=== PATIENT | male | born 1945 | race Caucasian/White ===

== ENCOUNTER 2019-01-24 09:13 | Emergency (ER) | payer MEDICARE, OTHER, SELFPAY ==
[2019-01-24 09:34] VITALS: BP 118/66; PULSE 93; RESP 20; TEMP 36.7; O2SAT 99
[2019-01-24 10:00] VITALS: BP 112/71; PULSE 90; RESP 16; O2SAT 94
--- NOTE | 2019-01-24 10:50 | ED.NEUROSD ---
HPI - Neuro Symptoms/Deficit General Chief Complaint: Neuro Symptoms/Deficit Stated Complaint: HALLUCINATIONS Time Seen by Provider: 01/24/19 10:41 Source: patient and family (, 9 months) Mode of arrival: ambulatory Limitations: no limitations History of Present Illness HPI Narrative: this is a 73-year-old male comes to the emergency department. He is brought by his for constantly falling asleep and in appropriate locations are at times. As well as confusion. states that he will fall asleep intermittently on a regular basis. She states he has even fallen asleep while trying eat. He has done things like to try to eat PCU with a knife, she told him that there were shrubs that someone had stolen from their front porch but then went to try to find tall it moves from which she pointed out that they should be going to someone had stolen them he still said he had to move the zeus. She states he noticed 1 day that he kept trying to replace his CPAP tubing on his face some and kept taking on putting it off taking on putting it off multiple times and she did notice that the nasal cannula was gone and had to inform him that it would not work and he did not seem to understand. He has probably had about 3 or 4 episodes like this. Along with intermittently falling asleep. She states he does have diabetes, he has not been checking his sugars regularly but just using his Lantus once daily. He also left his CPAP in [place] about 3 weeks ago although he was having some symptoms before then as well. They do seem a little bit worse since then. Denies any headaches, vision changes, no chest pain or shortness of breath, no abdominal pain. No nausea, no vomiting, no other diarrhea, constipation or urinary issues. No weakness, numbness or difficulty with movement. He does not have any aphasia according to him and his . They have only been very 9 months. History significant for a CABG, cholecystectomy, AFib and diabetes. Related Data Home Medications Medication Instructions Recorded Confirmed Metformin Hydrochloride 1,275 mg PO BID #0 11/06/12 (GLUCOPHAGE) VITAMIN D (Vitamin D3) #0 11/06/12 aspirin 81 mg PO QDAY #0 11/06/12 clopidogrel [Plavix] 75 mg PO QDAY #0 11/06/12 hydrochlorothiazide 50 mg PO QDAY #0 11/06/12 insulin glargine [Lantus U-100 0 unit SQ BID #0 11/06/12 Insulin] lisinopril 20 mg PO QDAY #0 11/06/12 metoprolol tartrate 25 mg PO BID #0 11/06/12 omeprazole #0 11/06/12 simvastatin 20 mg PO QDAY #0 11/06/12 testosterone cypionate #0 11/06/12 [Depo-Testosterone] Allergies Allergy/AdvReac Type Severity Reaction Status Date / Time ferrous sulfate Allergy Muscle Pain Verified 01/24/19 09:41 gabapentin Allergy Confusion Verified 01/24/19 09:41 zolpidem [From Ambien] Allergy Confusion Verified 01/24/19 09:41 NSAIDS (Non-Steroidal AdvReac Severe kidney Verified 01/24/19 09:42 Anti-Inflamma disease Review of Systems Review of Systems ROS Unobtainable: All systems reviewed & are unremarkable except as noted in HPI and below Constitutional Denies body ache(s), Denies chills, Reports daytime sleepiness, Denies fatigue, Denies fever(s), Denies frequent falls, Denies headache(s), Denies lethargy and Denies weakness ENT Ears, Nose, Mouth, and Throat: Denies vertigo, Denies headache(s), Denies nasal congestion and Denies disequilibrium Cardiovascular Denies chest pain, Denies syncope, Denies edema, Denies irregular heart rhythm, Denies lightheadedness, Denies radiating jaw, neck or arm pain, Denies palpitations, Denies dyspnea, Denies dyspnea on exertion and Denies orthopnea Respiratory Denies change in phlegm color, Denies chest congestion, Denies cough, Denies excessive phlegm production, Denies dyspnea, Denies dyspnea on exertion and Denies wheezing Gastrointestinal Gastrointestinal: Denies abdominal pain, Denies change in bowel habits, Denies fecal incontinence, Denies diarrhea, Denies nausea and Denies vomiting Genitourinary Denies hematuria, Denies flank pain, Denies urinary frequency, Denies urinary hesitancy, Denies urinary incontinence and Denies urinary urgency Musculoskeletal Denies abnormal gait, Denies back pain, Denies muscle weakness, Denies numbness and Denies tingling Integumentary/Breasts Denies rash Neurologic Reports as per HPI, Denies abnormal movements, Denies abnormal speech, Denies abnormal gait, Reports behavioral changes, Reports confusion, Denies vertigo, Denies syncope, Denies frequent falls, Denies headache(s), Denies lack of coordination, Denies focal weakness, Denies numbness, Denies convulsions, Denies seizure-like activity, Denies sensory deficit, Denies tingling, Denies paresthesias, Denies disequilibrium and Denies weakness Psychiatric Reports behavioral changes and Reports confusion Endocrine Denies fatigue and Denies palpitations Allergic/Immunologic Denies wheezing PFSH Medical History (Updated 01/24/19 @ 13:20 by Brandy Chandler DO) Atrial fibrillation (Chronic) Coronary artery disease (Chronic) Diabetes (Chronic) Dyslipidemia (Chronic) Hypertension (Chronic) Sleep apnea (Chronic) Surgical History (Updated 01/24/19 @ 11:17 by Brandy Chandler DO) Hx of cholecystectomy (Chronic) S/P CABG x 4 (Chronic) Social History (Updated 01/24/19 @ 11:17 by Brandy Chandler DO) marital status: details: x 9 months Smoking Status: Former smoker Social History (Updated 01/24/19 @ 11:17 by Brandy Chandler DO) marital status: details: x 9 months Smoking Status: Former smoker Exam Narrative Exam Narrative: GEN: Obese, well-appearing male, alert and oriented x 3, patient appears to be in no acute distress. patient does seem to be napping when I enter the room but stays awake. He will close his eyes but listens follows a conversation and answers appropriately. HEENT: Atraumatic, pupils are equal round reactive to light, extraocular movements are intact, nares are clear, TMs are clear with no fluid, there is no conjunctival pallor. Throat is clear without any exudates, erythema, tonsillar enlargement or uvular deviation, no facial droop HEART: Regular rate and rhythm without murmur, clicks, rubs. Pulses are equal in upper extremities LUNGS:Lungs clear to auscultation, no wheezes, rales, crackles, chest moves symmetrically ABD:bowel sounds normal, soft, non-tender, no guarding, rebound, rigidity, no masses noted, no hepatosplenomegaly :No CVA tenderness MSCL: Non-tender, no muscle atrophy, muscles strength 5/5 upper and lower extremities, full range of motion, normal gait NEURO:CN 2-12 intact, sensation normal, reflexes 2/4 upper and lower extremities. finger nose finger test normal, heel uribe test normal, romberg normal Initial Vital Signs Initial Vital Signs: Vital Signs Temperature 98.0 F 01/24/19 09:34 Pulse Rate 93 H 01/24/19 09:34 Respiratory Rate 20 01/24/19 09:34 Blood Pressure 118/66 01/24/19 09:34 Pulse Oximetry 99 01/24/19 09:34 Scores GCS Marcelo coma scale eye opening: Spontaneous Marcelo coma scale verbal response: Orientated Mark coma scale motor response: Obey commands Marcelo coma scale total score: 15 Course Orders Ordered: ED Orders 01/24/19 11:07 EKG-12 Lead Stat 01/24/19 11:08 CT head/brain wo con Stat XR chest 1V Stat 01/24/19 11:20 Ammonia (NH3) Stat Prolactin Stat 01/24/19 12:25 Urinalysis and Microscopic Stat Urine Drug Screen, Rapid Stat Vital Signs - 8 hr 01/24/19 12:22 01/24/19 13:30 01/24/19 14:08 Pulse Rate 85 83 63 Respiratory Rate 19 16 12 Blood Pressure 115/62 Blood Pressure [Right Arm] 124/60 112/69 Pulse Oximetry 99 99 98 MDM - Neuro Symptoms/Deficit Lab Data Attestation: I reviewed the patient's lab results. Result diagrams: 01/24/19 09:40 01/24/19 09:40 Lab Results 01/24/19 01/24/19 01/24/19 Range/Units 09:40 09:40 09:40 WBC 8.2 (4.5-11.0) X10^3/uL RBC 5.41 (4.5-5.9) X10^6/uL Hgb 14.8 (13.5-17.5) g/dL Hct 44.3 (41-53) % MCV 81.9 (80-100) fL MCH 27.3 (26-34) PG MCHC 33.4 (30-36) % RDW 14.9 H (11.6-14.8) % Plt Count 141 L (150-400) X10^3/uL Neut % (Auto) 78.0 H (50-75) % Lymph % (Auto) 14.5 L (25-40) % Barry % (Auto) 5.1 (3-14) % Eos % (Auto) 1.9 L (2-4) % Baso % (Auto) 0.5 (0-2) % Neut # (Auto) 6400 (3117-0850) /uL Lymph # (Auto) 1200 (8490-3570) /uL Barry # (Auto) 400 (0-900) /uL Eos # (Auto) 200 (0-450) /uL Baso # (Auto) 0 (0-100) /uL PT 23.3 H (10.1-12.7) SECONDS INR 2.0 H (0.9-1.3) APTT 52 H (26.4-36.2) SECONDS Sodium 135 L (137-145) mmol/L Potassium 5.0 (3.4-5.1) mmol/L Chloride 98 (98-107) mmol/L Carbon Dioxide 26 (22-32) mmol/L BUN 39 H (9-20) mg/dL Creatinine 1.60 H (0.66-1.25) mg/dL Estimated GFR 42.7 L (>60) mL/min BUN/Creatinine Ratio 24.4 H (6-22) Glucose 96 (80-110) mg/dL Calcium 8.5 (8.4-10.2) mg/dL Total Bilirubin 1.1 (0.2-1.3) mg/dL AST 42 (17-59) IU/L ALT 20 L (21-72) IU/L Alkaline Phosphatase 78 (38-126) U/L Ammonia (9-30) umol/L Total Protein 7.5 (6.3-8.2) g/dL Albumin 4.3 (3.5-5.0) g/dL Globulin 3.2 (1.7-4.1) g/dL Albumin/Globulin Ratio 1.3 (1.0-2.8) TSH (0.47-4.68) uIU/mL Prolactin (3.7-17.9) ng/mL Urine Color Urine Appearance Urine pH (4.5-8.0) Ur Specific [place] (1.000-1.035) Urine Protein (Negative) Urine Glucose (UA) (Negative) g/dL Urine Ketones (NEGATIVE) Urine Occult Blood (Negative) Urine Nitrate (Negative) Urine Bilirubin (NEGATIVE) Urine Urobilinogen (0.2) E.U./dL Ur Leukocyte Esterase (NEGATIVE) Urine RBC (0-5/HPF) Urine WBC (0-5/HPF) Urine Bacteria (None) Hyaline Casts (None) Ur Culture Indicated? Urine Opiates Screen (Negative) Ur Oxycodone Screen (Negative) Urine Methadone Screen (Negative) Ur Barbiturates Screen (Negative) U Tricyclic Antidepress (Negative) Ur Phencyclidine Scrn (Negative) Ur Amphetamines Screen (Negative) U Methamphetamines Scrn (Negative) Ur MDMA Scrn (Ecstasy) (Negative) U Benzodiazepines Scrn (Negative) Urine Cocaine Screen (Negative) U Marijuana (THC) Screen (Negative) Ethyl Alcohol < 10 mg/dL 01/24/19 01/24/19 01/24/19 Range/Units 09:40 11:20 11:20 WBC (4.5-11.0) X10^3/uL RBC (4.5-5.9) X10^6/uL Hgb (13.5-17.5) g/dL Hct (41-53) % MCV (80-100) fL MCH (26-34) PG MCHC (30-36) % RDW (11.6-14.8) % Plt Count (150-400) X10^3/uL Neut % (Auto) (50-75) % Lymph % (Auto) (25-40) % Barry % (Auto) (3-14) % Eos % (Auto) (2-4) % Baso % (Auto) (0-2) % Neut # (Auto) (4535-1470) /uL Lymph # (Auto) (2992-7096) /uL Barry # (Auto) (0-900) /uL Eos # (Auto) (0-450) /uL Baso # (Auto) (0-100) /uL PT (10.1-12.7) SECONDS INR (0.9-1.3) APTT (26.4-36.2) SECONDS Sodium (137-145) mmol/L Potassium (3.4-5.1) mmol/L Chloride (98-107) mmol/L Carbon Dioxide (22-32) mmol/L BUN (9-20) mg/dL Creatinine (0.66-1.25) mg/dL Estimated GFR (>60) mL/min BUN/Creatinine Ratio (6-22) Glucose (80-110) mg/dL Calcium (8.4-10.2) mg/dL Total Bilirubin (0.2-1.3) mg/dL AST (17-59) IU/L ALT (21-72) IU/L Alkaline Phosphatase (38-126) U/L Ammonia 10.0 (9-30) umol/L Total Protein (6.3-8.2) g/dL Albumin (3.5-5.0) g/dL Globulin (1.7-4.1) g/dL Albumin/Globulin Ratio (1.0-2.8) TSH 3.26 (0.47-4.68) uIU/mL Prolactin 9.8 (3.7-17.9) ng/mL Urine Color Urine Appearance Urine pH (4.5-8.0) Ur Specific [place] (1.000-1.035) Urine Protein (Negative) Urine Glucose (UA) (Negative) g/dL Urine Ketones (NEGATIVE) Urine Occult Blood (Negative) Urine Nitrate (Negative) Urine Bilirubin (NEGATIVE) Urine Urobilinogen (0.2) E.U./dL Ur Leukocyte Esterase (NEGATIVE) Urine RBC (0-5/HPF) Urine WBC (0-5/HPF) Urine Bacteria (None) Hyaline Casts (None) Ur Culture Indicated? Urine Opiates Screen (Negative) Ur Oxycodone Screen (Negative) Urine Methadone Screen (Negative) Ur Barbiturates Screen (Negative) U Tricyclic Antidepress (Negative) Ur Phencyclidine Scrn (Negative) Ur Amphetamines Screen (Negative) U Methamphetamines Scrn (Negative) Ur MDMA Scrn (Ecstasy) (Negative) U Benzodiazepines Scrn (Negative) Urine Cocaine Screen (Negative) U Marijuana (THC) Screen (Negative) Ethyl Alcohol mg/dL 01/24/19 01/24/19 Range/Units 12:25 12:25 WBC (4.5-11.0) X10^3/uL RBC (4.5-5.9) X10^6/uL Hgb (13.5-17.5) g/dL Hct (41-53) % MCV (80-100) fL MCH (26-34) PG MCHC (30-36) % RDW (11.6-14.8) % Plt Count (150-400) X10^3/uL Neut % (Auto) (50-75) % Lymph % (Auto) (25-40) % Barry % (Auto) (3-14) % Eos % (Auto) (2-4) % Baso % (Auto) (0-2) % Neut # (Auto) (7035-2114) /uL Lymph # (Auto) (7597-5846) /uL Barry # (Auto) (0-900) /uL Eos # (Auto) (0-450) /uL Baso # (Auto) (0-100) /uL PT (10.1-12.7) SECONDS INR (0.9-1.3) APTT (26.4-36.2) SECONDS Sodium (137-145) mmol/L Potassium (3.4-5.1) mmol/L Chloride (98-107) mmol/L Carbon Dioxide (22-32) mmol/L BUN (9-20) mg/dL Creatinine (0.66-1.25) mg/dL Estimated GFR (>60) mL/min BUN/Creatinine Ratio (6-22) Glucose (80-110) mg/dL Calcium (8.4-10.2) mg/dL Total Bilirubin (0.2-1.3) mg/dL AST (17-59) IU/L ALT (21-72) IU/L Alkaline Phosphatase (38-126) U/L Ammonia (9-30) umol/L Total Protein (6.3-8.2) g/dL Albumin (3.5-5.0) g/dL Globulin (1.7-4.1) g/dL Albumin/Globulin Ratio (1.0-2.8) TSH (0.47-4.68) uIU/mL Prolactin (3.7-17.9) ng/mL Urine Color Yellow Urine Appearance Clear Urine pH 5.0 (4.5-8.0) Ur Specific [place] 1.025 (1.000-1.035) Urine Protein Trace H (Negative) Urine Glucose (UA) Negative (Negative) g/dL Urine Ketones Negative (NEGATIVE) Urine Occult Blood Negative (Negative) Urine Nitrate Negative (Negative) Urine Bilirubin Negative (NEGATIVE) Urine Urobilinogen 0.2 (0.2) E.U./dL Ur Leukocyte Esterase Negative (NEGATIVE) Urine RBC None seen (0-5/HPF) Urine WBC None seen (0-5/HPF) Urine Bacteria None seen (None) Hyaline Casts 1-5/lpf (None) Ur Culture Indicated? Cult not indicated Urine Opiates Screen Positive H (Negative) Ur Oxycodone Screen Positive H (Negative) Urine Methadone Screen Negative (Negative) Ur Barbiturates Screen Negative (Negative) U Tricyclic Antidepress Positive H (Negative) Ur Phencyclidine Scrn Negative (Negative) Ur Amphetamines Screen Negative (Negative) U Methamphetamines Scrn Negative (Negative) Ur MDMA Scrn (Ecstasy) Negative (Negative) U Benzodiazepines Scrn Negative (Negative) Urine Cocaine Screen Negative (Negative) U Marijuana (THC) Screen Negative (Negative) Ethyl Alcohol mg/dL Point of Care Testing Glucose POC [address] scan - head: Radiologist's impression: Chart Viewer Diagnostics DATE TYPE STATUS AUTHOR Yulisa 01/24/19 11:08 Escobar Cardona 01/24/19 11:08 Escobar Cardona De GuzmanKenneth luna, 1945 [facility], ED.LOC - Main ED: R02 Neuro Symptoms/Deficit Search Chart NF - Not included in interaction checking Muscle Pain Confusion Confusion kidney disease ONSET Today 14:08 Kenneth De Guzman 73 1945 [place] [address] CT Scan Report Signed Patient: Darío De Guzman#: [id number] : 1945cct:[id number] Age/Sex: 73 / MDate of Service: 01/24/19 Loc: ED Accession Number: [id number] Procedure: CT head/brain wo con Ordering Provider: Brandy Chandler D.O. PROCEDURE: CT HEAD/BRAIN WO CON INDICATIONS: falls asleep contantly, confusion intermittent TECHNIQUE: Noncontrast 4.5 mm thick angled axial sections acquired from the foramen magnum to the vertex, with coronal and sagittal reformats. For radiation dose reduction, the following was used: automated exposure control, adjustment of mA and/or kV according to patient size. COMPARISON: None. FINDINGS: Image quality: Excellent. CSF spaces: Basal cisterns are patent. No extra-axial fluid collections. The ventricles are symmetric in size and shape. Brain: No intracranial bleeds or masses. There is cerebral volume loss for age, with resultant ventricular and sulcal prominence. There are periventricular and deep white matter chronic small vessel ischemic changes. There is intracranial internal carotid artery atherosclerosis. Incidental note of coarse calcifications along the anterior falx cerebri compatible with calcified meningiomas. No mass effect. Skull and face: Calvarium and visualized facial bones appear intact, without suspicious lesions. Sinuses: Left maxillary sinus mucosal thickening. Remainder of the visualized paranasal sinuses and mastoids are clear. IMPRESSION: CT head without acute intracranial abnormalities. Age-related senescent changes and sequela of chronic small vessel ischemic disease. Dictated by: Escobar Cradona M.D. on 01/24/2019 at 11:49 Approved by: Escobar Cardona M.D. on 01/24/2019 at 11:51 Chest x-ray: Radiologist's impression: Chart Viewer Diagnostics DATE TYPE STATUS AUTHOR Yulisa 01/24/19 11:08 Escobar Cardona 01/24/19 11:08 Escobar Cardona Harry 73, 1945 [facility], ED.LOC - Main ED: R02 Neuro Symptoms/Deficit Search Chart NF - Not included in interaction checking Muscle Pain Confusion Confusion kidney disease ONSET Today 14:08 Kenneth De Guzman 1945 [place] [address] XRay Report Signed Patient: Darío De Guzman#: [id number] : 1945cct:[id number] Age/Sex: 73 / MDate of Service: 01/24/19 Loc: ED Accession Number: [id number] Procedure: XR chest 1V Ordering Provider: Brandy Chandler D.O. PROCEDURE: XR CHEST 1V INDICATIONS: falls asleep contantly, confusion intermittent TECHNIQUE: One view of the chest was acquired. COMPARISON: None. FINDINGS: Surgical changes and devices: Multiple median sternotomy wires and postoperative changes from prior CABG. Lungs and pleura: Lung volumes are diminished bilaterally with associated bibasilar atelectasis. Lungs are otherwise clear. No pleural effusions or pneumothorax. Mediastinum: Mediastinal contours appear normal. Heart size is normal. Bones and chest wall: No suspicious bony lesions. Overlying soft tissues appear unremarkable. IMPRESSION: Mild hypoventilatory changes. No acute airspace disease. Dictated by: Escobar Cardona M.D. on 01/24/2019 at 12:38 Approved by: Escobar Cardona M.D. on 01/24/2019 at 12:39 ECG Data Attestation: I personally reviewed and interpreted this ECG as follows: Prior ECG tracings: available for review Interpretation: Sinus rhythm occasional premature complex, rate of 86, P 182, QRS of 118 and QTC of 422. Nonspecific ST changes. From November 06, [address] depression in lateral leads as well as an RSR and 3 and AVF although it is a very small voltage and as for nose is today. MDM Narrative Medical decision making narrative: Patient does not have any clear source for his symptomatology. He has had his CPAP so this could be contributing although his CO2 is not elevated so it is unlikely to be hypercapnia. Patient was also having symptoms before with his CPAP at home. He does have narcotics on board we did discuss that as could be contributing to at least the sleepiness. His and him state that they do not think that is the cause as well as the tricyclics. He states he does take something regularly for sleep but is not clear what that is. He does not have any other clear acute changes that would be causing his mental status changes, his head CT is negative as well as chest x-ray for any acute cause he does have chronic changes. Ideally would probably benefit from follow-up with the primary care he could have an Alzheimer's, possibly Lewy body dementia that is causing some of the hallucinations and changes although this would necessarily cause his sleepiness. He is sugar was not particularly elevated today and he has lowest was 75 but he had not eaten. Was given the referral number to help set up with primary care but encouraged to return if worsening symptoms. Discharge Plan Departure Patient Disposition: Home Clinical Impression: Altered mental status Discharge Date/Time: 01/24/19 14:10 Interventions: ED Discharge Assessment Last Done: 01/24/19 14:08 Instructions: DI for Altered Mental Status Activity Restrictions/Additional Instructions: Your urine drug screen is positive for opiates and tricyclic's this can cause your altered mental status. I would also recommend that you get a hold of another CPAP get your CPAP and begin using this again. I recommend follow-up with primary care. You can call the hospital at [phone] and ask for the physician coordinator line to help you find a primary care physician. Follow-up in the next 3-5 days for recheck., return if your are having sudden new changes, passing out, new chest pain, shortness of breath, persistent vomiting, new weakness, numbness or inability to use your extremities. I do not recommend that you drive until cleared by a physician. I do not perform hazards had activities or make any major decisions. Prescriptions: No Action lisinopril 20 MG tablet 20 mg PO QDAY Qty: 0 RF: 0 Metformin Hydrochloride (GLUCOPHAGE) 1,275 mg PO BID Qty: 0 RF: 0 clopidogrel [Plavix] 75 MG tablet 75 mg PO QDAY Qty: 0 RF: 0 omeprazole 40 MG capsule,delayed release(DR/EC) Qty: 0 RF: 0 simvastatin 20 MG tablet 20 mg PO QDAY Qty: 0 RF: 0 aspirin 81 MG tablet,chewable 81 mg PO QDAY Qty: 0 RF: 0 metoprolol tartrate 25 MG tablet 25 mg PO BID Qty: 0 RF: 0 VITAMIN D (Vitamin D3) Qty: 0 RF: 0 insulin glargine [Lantus U-100 Insulin] 100 UNIT/1 ML solution SQ BID Qty: 0 RF: 0 hydrochlorothiazide 25 MG tablet 50 mg PO QDAY Qty: 0 RF: 0 testosterone cypionate [Depo-Testosterone] 200 MG/1 ML oil Qty: 0 RF: 0
[2019-01-24 11:00] VITALS: BP 129/65; PULSE 85; RESP 16; O2SAT 98
--- NOTE | 2019-01-24 11:08 | DI.CT.S_ITS ---
PROCEDURE: CT HEAD/BRAIN WO CON INDICATIONS: falls asleep contantly, confusion intermittent TECHNIQUE: Noncontrast 4.5 mm thick angled axial sections acquired from the foramen magnum to the vertex, with coronal and sagittal reformats. For radiation dose reduction, the following was used: automated exposure control, adjustment of mA and/or kV according to patient size. COMPARISON: None. FINDINGS: Image quality: Excellent. CSF spaces: Basal cisterns are patent. No extra-axial fluid collections. The ventricles are symmetric in size and shape. Brain: No intracranial bleeds or masses. There is cerebral volume loss for age, with resultant ventricular and sulcal prominence. There are periventricular and deep white matter chronic small vessel ischemic changes. There is intracranial internal carotid artery atherosclerosis. Incidental note of coarse calcifications along the anterior falx cerebri compatible with calcified meningiomas. No mass effect. Skull and face: Calvarium and visualized facial bones appear intact, without suspicious lesions. Sinuses: Left maxillary sinus mucosal thickening. Remainder of the visualized paranasal sinuses and mastoids are clear. IMPRESSION: CT head without acute intracranial abnormalities. Age-related senescent changes and sequela of chronic small vessel ischemic disease. Dictated by: Escobar Cardona M.D. on 01/24/2019 at 11:49 Approved by: Escobar Cardona M.D. on 01/24/2019 at 11:51
--- NOTE | 2019-01-24 11:08 | DI.RAD.S_ITS ---
PROCEDURE: XR CHEST 1V INDICATIONS: falls asleep contantly, confusion intermittent TECHNIQUE: One view of the chest was acquired. COMPARISON: None. FINDINGS: Surgical changes and devices: Multiple median sternotomy wires and postoperative changes from prior CABG. Lungs and pleura: Lung volumes are diminished bilaterally with associated bibasilar atelectasis. Lungs are otherwise clear. No pleural effusions or pneumothorax. Mediastinum: Mediastinal contours appear normal. Heart size is normal. Bones and chest wall: No suspicious bony lesions. Overlying soft tissues appear unremarkable. IMPRESSION: Mild hypoventilatory changes. No acute airspace disease. Dictated by: Escobar Cardona M.D. on 01/24/2019 at 12:38 Approved by: Escobar Cardona M.D. on 01/24/2019 at 12:39
[2019-01-24 11:18] LABS: Add Manual Diff / Slide Review NO; Basophils Absolute Auto 0 /uL (0-100); Basophils Percent Auto 0.5 % (0-2); Eosinophils Absolute Auto 200 /uL (0-450); Eosinophils Percent Auto 1.9 % (2-4); Hematocrit 44.3 % (41-53); Hemoglobin 14.8 g/dL (13.5-17.5); Lymphocytes Absolute Auto 1200 /uL (1100-4500); Lymphocytes Percent Auto 14.5 % (25-40); Mean Corpuscular HGB Conc 33.4 % (30-36); Mean Corpuscular Hemoglobin 27.3 PG (26-34); Mean Corpuscular Volume 81.9 fL (80-100); Monocytes Absolute Auto 400 /uL (0-900); Monocytes Percent Auto 5.1 % (3-14); Neutrophils Absolute Auto 6400 /uL (1500-7000); Platelet Count 141 X10^3/uL (150-400); Red Blood Cell Count 5.41 X10^6/uL (4.5-5.9); Red Cell Distribution Width 14.9 % (11.6-14.8); White Blood Cell Count 8.2 X10^3/uL (4.5-11.0)
--- NOTE | 2019-01-24 11:19 | ED_ITS ---
HPI - Neuro Symptoms/Deficit General Chief Complaint: Neuro Symptoms/Deficit Stated Complaint: HALLUCINATIONS Time Seen by Provider: 01/24/19 10:41 Source: patient and family (, 9 months) Mode of arrival: ambulatory Limitations: no limitations History of Present Illness HPI Narrative: this is a 73-year-old male comes to the emergency department. He is brought by his for constantly falling asleep and in appropriate locations are at times. As well as confusion. states that he will fall as leep intermittently on a regular basis. She states he has even fallen asleep while trying eat. He has done things like to try to eat PCU with a knife, she told him that there were shrubs that someone had stolen from their front porch but then went to try to find tall it moves from which she pointed out that they should be going to someone had stolen them he still said he had to move the zeus. She states he noticed 1 day that he kept trying to replace his CPAP tubing on his face some and kept taking on putting it off taking on putting it off multiple times and she did notice that the nasal cannula was gone and had to inform him that it would not work and he did not seem to understand. He has probably had about 3 or 4 episodes like this. Along with intermittently falling asleep. She states he does have diabetes, he has not been checking his sugars regularly but just using his Lantus once daily. He also left his CPAP in [place] about 3 weeks ago although he was having some symptoms before then as well. They do seem a little bit worse since then. Denies any headaches, vision changes, no chest pain or shortness of breath, no abdominal pain. No nausea, no vomiting, no other diarrhea, constipation or urinary issues. No weakness, numbness or difficulty with movement. He does not have any aphasia according to him and his . They have only been very 9 months. History significant for a CABG, cholecystectomy, AFib and diabetes. Related Data Home Medications Medication Instructions Recorded Confirmed Metformin Hydrochloride 1,275 mg PO BID #0 11/06/12 (GLUCOPHAGE) VITAMIN D (Vitamin D3) #0 11/06/12 aspirin 81 mg PO QDAY #0 11/06/12 clopidogrel [Plavix] 75 mg PO QDAY #0 11/06/12 hydrochlorothiazide 50 mg PO QDAY #0 11/06/12 insulin glargine [Lantus U-100 0 unit SQ BID #0 11/06/12 Insulin] lisinopril 20 mg PO QDAY #0 11/06/12 metoprolol tartrate 25 mg PO BID #0 11/06/12 omeprazole #0 11/06/12 simvastatin 20 mg PO QDAY #0 11/06/12 testosterone cypionate #0 11/06/12 [Depo-Testosterone] Allergies Allergy/AdvReac Type Severity Reaction Status Date / Time ferrous sulfate Allergy Muscle Pain Verified 01/24/19 09:41 gabapentin Allergy Confusion Verified 01/24/19 09:41 zolpidem [From Ambien] Allergy Confusion Verified 01/24/19 09:41 NSAIDS (Non-Steroidal AdvReac Severe kidney Verified 01/24/19 09:42 Anti-Inflamma disease Review of Systems Review of Systems ROS Unobtainable: All systems reviewed & are unremarkable except as noted in HPI and below Constitutional Denies body ache(s), Denies chills, Reports daytime sleepiness, Denies fatigue, Denies fever(s), Denies frequent falls, Denies headache(s), Denies lethargy and Denies weakness ENT Ears, Nose, Mouth, and Throat: Denies vertigo, Denies headache(s), Denies nasal congestion and Denies disequilibrium Cardiovascular Denies chest pain, Denies syncope, Denies edema, Denies irregular heart rhythm, Denies lightheadedness, Denies radiating jaw, neck or arm pain, Denies palpitations, Denies dyspnea, Denies dyspnea on exertion and Denies orthopnea Respiratory Denies change in phlegm color, Denies chest congestion, Denies cough, Denies excessive phlegm production, Denies dyspnea, Denies dyspnea on exertion and Denies wheezing Gastrointestinal Gastrointestinal: Denies abdominal pain, Denies change in bowel habits, Denies fecal incontinence, Denies diarrhea, Denies nausea and Denies vomiting Genitourinary Denies hematuria, Denies flank pain, Denies urinary frequency, Denies urinary hesitancy, Denies urinary incontinence and Denies urinary urgency Musculoskeletal Denies abnormal gait, Denies back pain, Denies muscle weakness, Denies numbness and Denies tingling Integumentary/Breasts Denies rash Neurologic Reports as per HPI, Denies abnormal movements, Denies abnormal speech, Denies abnormal gait, Reports behavioral changes, Reports confusion, Denies vertigo, Denies syncope, Denies frequent falls, Denies headache(s), Denies lack of coordination, Denies focal weakness, Denies numbness, Denies convulsions, Denies seizure-like activity, Denies sensory deficit, Denies tingling, Denies paresthesias, Denies disequilibrium and Denies weakness Psychiatric Reports behavioral changes and Reports confusion Endocrine Denies fatigue and Denies palpitations Allergic/Immunologic Denies wheezing PFSH Medical History (Updated 01/24/19 @ 13:20 by Brandy Chandler DO) Atrial fibrillation (Chronic) Coronary artery disease (Chronic) Diabetes (Chronic) Dyslipidemia (Chronic) Hypertension (Chronic) Sleep apnea (Chronic) Surgical History (Updated 01/24/19 @ 11:17 by Brandy Chandler DO) Hx of cholecystectomy (Chronic) S/P CABG x 4 (Chronic) Social History (Updated 01/24/19 @ 11:17 by Brandy Chandler DO) marital status: details: x 9 months Smoking Status: Former smoker Social History (Updated 01/24/19 @ 11:17 by Barndy Chandler DO) marital status: details: x 9 months Smoking Status: Former smoker Exam Narrative Exam Narrative: GEN: Obese, well-appearing male, alert and oriented x 3, patient appears to be in no acute distress. patient does seem to be napping when I enter the room but stays awake. He will close his eyes but listens follows a conversation and answers appropriately. HEENT: Atraumatic, pupils are equal round reactive to light, extraocular movements are intact, nares are clear, TMs are clear with no fluid, there is no conjunctival pallor. Throat is clear without any exudates, erythema, tonsillar enlargement or uvular deviation, no facial droop HEART: Regular rate and rhythm without murmur, clicks, rubs. Pulses are equal in upper extremities LUNGS:Lungs clear to auscultation, no wheezes, rales, crackles, chest moves symmetrically ABD:bowel sounds normal, soft, non-tender, no guarding, rebound, rigidity, no masses noted, no hepatosplenomegaly :No CVA tenderness MSCL: Non-tender, no muscle atrophy, muscles strength 5/5 upper and lower extremities, full range of motion, normal gait NEURO:CN 2-12 intact, sensation normal, reflexes 2/4 upper and lower extremities. finger nose finger test normal, heel uribe test normal, romberg normal Initial Vital Signs Initial Vital Signs: Vital Signs Temperature 98.0 F 01/24/19 09:34 Pulse Rate 93 H 01/24/19 09:34 Respiratory Rate 20 01/24/19 09:34 Blood Pressure 118/66 01/24/19 09:34 Pulse Oximetry 99 01/24/19 09:34 Scores GCS [place] coma scale eye opening: Spontaneous [place] coma scale verbal response: Orientated Marcel[place] coma scale motor response: Obey commands Marcelo coma scale total score: 15 Course Orders Ordered: ED Orders 01/24/19 11:07 EKG-12 Lead Stat 01/24/19 11:08 CT head/brain wo con Stat XR chest 1V Stat 01/24/19 11:20 Ammonia (NH3) Stat Prolactin Stat 01/24/19 12:25 Urinalysis and Microscopic Stat Urine Drug Screen, Rapid Stat Vital Signs - 8 hr 01/24/19 12:22 01/24/19 13:30 01/24/19 14:08 Pulse Rate 85 83 63 Respiratory Rate 19 16 12 Blood Pressure 115/62 Blood Pressure [Right Arm] 124/60 112/69 Pulse Oximetry 99 99 98 MDM - Neuro Symptoms/Deficit Lab Data Attestation: I reviewed the patient's lab results. Result diagrams: 01/24/19 09:40 01/24/19 09:40 Lab Results 01/24/19 01/24/19 01/24/19 Range/Units 09:40 09:40 09:40 WBC 8.2 (4.5-11.0) X10^3/uL RBC 5.41 (4.5-5.9) X10^6/uL Hgb 14.8 (13.5-17.5) g/dL Hct 44.3 (41-53) % MCV 81.9 (80-100) fL MCH 27.3 (26-34) PG MCHC 33.4 (30-36) % RDW 14.9 H (11.6-14.8) % Plt Count 141 L (150-400) X10^3/uL Neut % (Auto) 78.0 H (50-75) % Lymph % (Auto) 14.5 L (25-40) % [place] % (Auto) 5.1 (3-14) % Eos % (Auto) 1.9 L (2-4) % Baso % (Auto) 0.5 (0-2) % Neut # (Auto) 6400 (0455-9955) /uL Lymph # (Auto) 1200 (2584-4814) /uL [place] # (Auto) 400 (0-900) /uL Eos # (Auto) 200 (0-450) /uL Baso # (Auto) 0 (0-100) /uL PT 23.3 H (10.1-12.7) SECONDS INR 2.0 H (0.9-1.3) APTT 52 H (26.4-36.2) SECONDS Sodium 135 L (137-145) mmol/L Potassium 5.0 (3.4-5.1) mmol/L Chloride 98 (98-107) mmol/L Carbon Dioxide 26 (22-32) mmol/L BUN 39 H (9-20) mg/dL Creatinine 1.60 H (0.66-1.25) mg/dL Estimated GFR 42.7 L (>60) mL/min BUN/Creatinine Ratio 24.4 H (6-22) Glucose 96 (80-110) mg/dL Calcium 8.5 (8.4-10.2) mg/dL Total Bilirubin 1.1 (0.2-1.3) mg/dL AST 42 (17-59) IU/L ALT 20 L (21-72) IU/L Alkaline Phosphatase 78 (38-126) U/L Ammonia (9-30) umol/L Total Protein 7.5 (6.3-8.2) g/dL Albumin 4.3 (3.5-5.0) g/dL Globulin 3.2 (1.7-4.1) g/dL Albumin/Globulin Ratio 1.3 (1.0-2.8) TSH (0.47-4.68) uIU/mL Prolactin (3.7-17.9) ng/mL Urine Color Urine Appearance Urine pH (4.5-8.0) Ur Specific [place] (1.000-1.035) Urine Protein (Negative) Urine Glucose (UA) (Negative) g/dL Urine Ketones (NEGATIVE) Urine Occult Blood (Negative) Urine Nitrate (Negative) Urine Bilirubin (NEGATIVE) Urine Urobilinogen (0.2) E.U./dL Ur Leukocyte Esterase (NEGATIVE) Urine RBC (0-5/HPF) Urine WBC (0-5/HPF) Urine Bacteria (None) Hyaline Casts (None) Ur Culture Indicated? Urine Opiates Screen (Negative) Ur Oxycodone Screen (Negative) Urine Methadone Screen (Negative) Ur Barbiturates Screen (Negative) U Tricyclic Antidepress (Negative) Ur Phencyclidine Scrn (Negative) Ur Amphetamines Screen (Negative) U Methamphetamines Scrn (Negative) Ur MDMA Scrn (Ecstasy) (Negative) U Benzodiazepines Scrn (Negative) Urine Cocaine Screen (Negative) U Marijuana (THC) Screen (Negative) Ethyl Alcohol < 10 mg/dL 01/24/19 01/24/19 01/24/19 Range/Units 09:40 11:20 11:20 WBC (4.5-11.0) X10^3/uL RBC (4.5-5.9) X10^6/uL Hgb (13.5-17.5) g/dL Hct (41-53) % MCV (80-100) fL MCH (26-34) PG MCHC (30-36) % RDW (11.6-14.8) % Plt Count (150-400) X10^3/uL Neut % (Auto) (50-75) % Lymph % (Auto) (25-40) % [place] % (Auto) (3-14) % Eos % (Auto) (2-4) % Baso % (Auto) (0-2) % Neut # (Auto) (5010-0748) /uL Lymph # (Auto) (6356-8332) /uL [place] # (Auto) (0-900) /uL Eos # (Auto) (0-450) /uL Baso # (Auto) (0-100) /uL PT (10.1-12.7) SECONDS INR (0.9-1.3) APTT (26.4-36.2) SECONDS Sodium (137-145) mmol/L Potassium (3.4-5.1) mmol/L Chloride (98-107) mmol/L Carbon Dioxide (22-32) mmol/L BUN (9-20) mg/dL Creatinine (0.66-1.25) mg/dL Estimated GFR (>60) mL/min BUN/Creatinine Ratio (6-22) Glucose (80-110) mg/dL Calcium (8.4-10.2) mg/dL Total Bilirubin (0.2-1.3) mg/dL AST (17-59) IU/L ALT (21-72) IU/L Alkaline Phosphatase (38-126) U/L Ammonia 10.0 (9-30) umol/L Total Protein (6.3-8.2) g/dL Albumin (3.5-5.0) g/dL Globulin (1.7-4.1) g/dL Albumin/Globulin Ratio (1.0-2.8) TSH 3.26 (0.47-4.68) uIU/mL Prolactin 9.8 (3.7-17.9) ng/mL Urine Color Urine Appearance Urine pH (4.5-8.0) Ur Specific [place] (1.000-1.035) Urine Protein (Negative) Urine Glucose (UA) (Negative) g/dL Urine Ketones (NEGATIVE) Urine Occult Blood (Negative) Urine Nitrate (Negative) Urine Bilirubin (NEGATIVE) Urine Urobilinogen (0.2) E.U./dL Ur Leukocyte Esterase (NEGATIVE) Urine RBC (0-5/HPF) Urine WBC (0-5/HPF) Urine Bacteria (None) Hyaline Casts (None) Ur Culture Indicated? Urine Opiates Screen (Negative) Ur Oxycodone Screen (Negative) Urine Methadone Screen (Negative) Ur Barbiturates Screen (Negative) U Tricyclic Antidepress (Negative) Ur Phencyclidine Scrn (Negative) Ur Amphetamines Screen (Negative) U Methamphetamines Scrn (Negative) Ur MDMA Scrn (Ecstasy) (Negative) U Benzodiazepines Scrn (Negative) Urine Cocaine Screen (Negative) U Marijuana (THC) Screen (Negative) Ethyl Alcohol mg/dL 01/24/19 01/24/19 Range/Units 12:25 12:25 WBC (4.5-11.0) X10^3/uL RBC (4.5-5.9) X10^6/uL Hgb (13.5-17.5) g/dL Hct (41-53) % MCV (80-100) fL MCH (26-34) PG MCHC (30-36) % RDW (11.6-14.8) % Plt Count (150-400) X10^3/uL Neut % (Auto) (50-75) % Lymph % (Auto) (25-40) % [place] % (Auto) (3-14) % Eos % (Auto) (2-4) % Baso % (Auto) (0-2) % Neut # (Auto) (7755-7580) /uL Lymph # (Auto) (4385-3004) /uL [place] # (Auto) (0-900) /uL Eos # (Auto) (0-450) /uL Baso # (Auto) (0-100) /uL PT (10.1-12.7) SECONDS INR (0.9-1.3) APTT (26.4-36.2) SECONDS Sodium (137-145) mmol/L Potassium (3.4-5.1) mmol/L Chloride (98-107) mmol/L Carbon Dioxide (22-32) mmol/L BUN (9-20) mg/dL Creatinine (0.66-1.25) mg/dL Estimated GFR (>60) mL/min BUN/Creatinine Ratio (6-22) Glucose (80-110) mg/dL Calcium (8.4-10.2) mg/dL Total Bilirubin (0.2-1.3) mg/dL AST (17-59) IU/L ALT (21-72) IU/L Alkaline Phosphatase (38-126) U/L Ammonia (9-30) umol/L Total Protein (6.3-8.2) g/dL Albumin (3.5-5.0) g/dL Globulin (1.7-4.1) g/dL Albumin/Globulin Ratio (1.0-2.8) TSH (0.47-4.68) uIU/mL Prolactin (3.7-17.9) ng/mL Urine Color Yellow Urine Appearance Clear Urine pH 5.0 (4.5-8.0) Ur Specific [place] 1.025 (1.000-1.035) Urine Protein Trace H (Negative) Urine Glucose (UA) Negative (Negative) g/dL Urine Ketones Negative (NEGATIVE) Urine Occult Blood Negative (Negative) Urine Nitrate Negative (Negative) Urine Bilirubin Negative (NEGATIVE) Urine Urobilinogen 0.2 (0.2) E.U./dL Ur Leukocyte Esterase Negative (NEGATIVE) Urine RBC None seen (0-5/HPF) Urine WBC None seen (0-5/HPF) Urine Bacteria None seen (None) Hyaline Casts 1-5/lpf (None) Ur Culture Indicated? Cult not indicated Urine Opiates Screen Positive H (Negative) Ur Oxycodone Screen Positive H (Negative) Urine Methadone Screen Negative (Negative) Ur Barbiturates Screen Negative (Negative) U Tricyclic Antidepress Positive H (Negative) Ur Phencyclidine Scrn Negative (Negative) Ur Amphetamines Screen Negative (Negative) U Methamphetamines Scrn Negative (Negative) Ur MDMA Scrn (Ecstasy) Negative (Negative) U Benzodiazepines Scrn Negative (Negative) Urine Cocaine Screen Negative (Negative) U Marijuana (THC) Screen Negative (Negative) Ethyl Alcohol mg/dL Point of Care Testing Glucose POC [address] scan - head: Radiologist's impression: Chart Viewer Diagnostics DATE TYPE STATUS AUTHOR Yulisa 01/24/19 11:08 Escobar Cardona 01/24/19 11:08 Escobar Cardona De GuzmanKenneth luna, 1945 [facility] ER, ED.LOC - Main ED: R02 Neuro Symptoms/Deficit Search Chart NF - Not included in interaction checking Muscle Pain Confusion Confusion kidney disease ONSET Today 14:08 Kenneth De Guzman 73 1945 [place] [address] CT Scan Report Signed Patient: Darío De Guzman#: [id number] : [id number]:[id number] Age/Sex: 73 / MDate of Service: 01/24/19 Loc: ED Accession Number: [id number] Procedure: CT head/brain wo con Ordering Provider: Brandy Chandler D.O. PROCEDURE: CT HEAD/BRAIN WO CON INDICATIONS: falls asleep contantly, confusion intermittent TECHNIQUE: Noncontrast 4.5 mm thick angled axial sections acquired from the foramen magnum to the vertex, with coronal and sagittal reformats. For radiation dose reduction, the following was used: automated exposure control, adjustment of mA and/or kV according to patient size. COMPARISON: None. FINDINGS: Image quality: Excellent. CSF spaces: Basal cisterns are patent. No extra-axial fluid collections. The ventricles are symmetric in size and shape. Brain: No intracranial bleeds or masses. There is cerebral volume loss for age, with resultant ventricular and sulcal prominence. There are periventricular and deep white matter chronic small vessel ischemic changes. There is intracranial internal carotid artery atherosclerosis. Incidental note of coarse calcifications along the anterior falx cerebri compatible with calcified meningiomas. No mass effect. Skull and face: Calvarium and visualized facial bones appear intact, without suspicious lesions. Sinuses: Left maxillary sinus mucosal thickening. Remainder of the visualized paranasal sinuses and mastoids are clear. IMPRESSION: CT head without acute intracranial abnormalities. Age-related senescent changes and sequela of chronic small vessel ischemic disease. Dictated by: Escobar Cardona M.D. on 01/24/2019 at 11:49 Approved by: Escobar Cardona M.D. on 01/24/2019 at 11:51 Chest x-ray: Radiologist's impression: Chart Viewer Diagnostics DATE TYPE STATUS AUTHOR Yulisa 01/24/19 11:08 Escobar Cardona 01/24/19 11:08 Escobar Cardona Harry 73, 1945 [facility] ER, ED.LOC - Main ED: R02 Neuro Symptoms/Deficit Search Chart NF - Not included in interaction checking Muscle Pain Confusion Confusion kidney disease ONSET Today 14:08 Kenneth De Guzman 1945 [place] [address] XRay Report Signed Patient: Darío De Guzman#: [id number] : [id number]:[id number] Age/Sex: 73 / MDate of Service: 01/24/19 Loc: ED Accession Number: [id number] Procedure: XR chest 1V Ordering Provider: Brandy Chandler D.O. PROCEDURE: XR CHEST 1V INDICATIONS: falls asleep contantly, confusion intermittent TECHNIQUE: One view of the chest was acquired. COMPARISON: None. FINDINGS: Surgical changes and devices: Multiple median sternotomy wires and postoperative changes from prior CABG. Lungs and pleura: Lung volumes are diminished bilaterally with associated bi basilar atelectasis. Lungs are otherwise clear. No pleural effusions or pneumothorax. Mediastinum: Mediastinal contours appear normal. Heart size is normal. Bones and chest wall: No suspicious bony lesions. Overlying soft tissues appear unremarkable. IMPRESSION: Mild hypoventilatory changes. No acute airspace disease. Dictated by: Escobar Cardona M.D. on 01/24/2019 at 12:38 Approved by: Escobar Cardona M.D. on 01/24/2019 at 12:39 ECG Data Attestation: I personally reviewed and interpreted this ECG as follows: Prior ECG tracings: available for review Interpretation: Sinus rhythm occasional premature complex, rate of 86, P 182, QRS of 118 and QTC of 422. Nonspecific ST changes. From November 06, [address] depression in lateral leads as well as an RSR and 3 and AVF although it is a very small voltage and as for nose is today. MDM Narrative Medical decision making narrative: Patient does not have any clear source for his symptomatology. He has had his CPAP so this could be contributing although his CO2 is not elevated so it is unlikely to be hypercapnia. Patient was also having symptoms before with his CPAP at home. He does have narcotics on board we did discuss that as could be contributing to at least the sleepiness. His and him state that they do not think that is the cause as well as the tricyclics. He states he does take something regularly for sleep but is not clear what that is. He does not have any other clear acute changes that would be causing his mental status changes, his head CT is negative as well as chest x-ray for any acute cause he does have chronic changes. Ideally would probably benefit from follow-up with the primary care he could have an Alzheimer's, possibly Lewy body dementia that is causing some of the hallucinations and changes although this would necessarily cause his sleepiness. He is sugar was not particularly elevated today and he has lowest was 75 but he had not eaten. Was given the referral number to help set up with primary care but encouraged to return if worsening symptoms. Discharge Plan Departure Patient Disposition: Home Clinical Impression: Altered mental status Discharge Date/Time: 01/24/19 14:10 Interventions: ED Discharge Assessment Last Done: 01/24/19 14:08 Instructions: DI for Altered Mental Status Activity Restrictions/Additional Instructions: Your urine drug screen is positive for opiates and tricyclic's this can cause your altered mental status. I would also recommend that you get a hold of another CPAP get your CPAP and begin using this again. I recommend follow-up with primary care. You can call the hospital at [phone] and ask for the physician coordinator line to help you find a primary care physician. Follow-up in the next 3-5 days for recheck., return if your are having sudden new changes, passing out, new chest pain, shortness of breath, persistent vomiting, new weakness, numbness or inability to use your extremities. I do not recommend that you drive until cleared by a physician. I do not perform hazards had activities or make any major decisions. Prescriptions: No Action lisinopril 20 MG tablet 20 mg PO QDAY Qty: 0 RF: 0 Metformin Hydrochloride (GLUCOPHAGE) 1,275 mg PO BID Qty: 0 RF: 0 clopidogrel [Plavix] 75 MG tablet 75 mg PO QDAY Qty: 0 RF: 0 omeprazole 40 MG capsule,delayed release(DR/EC) Qty: 0 RF: 0 simvastatin 20 MG tablet 20 mg PO QDAY Qty: 0 RF: 0 aspirin 81 MG tablet,chewable 81 mg PO QDAY Qty: 0 RF: 0 metoprolol tartrate 25 MG tablet 25 mg PO BID Qty: 0 RF: 0 VITAMIN D (Vitamin D3) Qty: 0 RF: 0 insulin glargine [Lantus U-100 Insulin] 100 UNIT/1 ML solution SQ BID Qty: 0 RF: 0 hydrochlorothiazide 25 MG tablet 50 mg PO QDAY Qty: 0 RF: 0 testosterone cypionate [Depo-Testosterone] 200 MG/1 ML oil Qty: 0 RF: 0
[2019-01-24 11:21] LABS: Prothrombin Time 23.3 SECONDS (10.1-12.7)
[2019-01-24 11:23] LABS: Alanine Aminotransferase 20 IU/L (21-72); Albumin 4.3 g/dL (3.5-5.0); Albumin Globulin Ratio 1.3 (1.0-2.8); Alkaline Phosphatase 78 U/L (38-126); Aspartate Aminotransferase 42 IU/L (17-59); BUN Creatinine Ratio 24.4 (6-22); Bilirubin Total 1.1 mg/dL (0.2-1.3); Blood Urea Nitrogen 39 mg/dL (9-20); Calcium 8.5 mg/dL (8.4-10.2); Carbon Dioxide 26 mmol/L (22-32); Chloride 98 mmol/L (98-107); Estimated Glomerular Filt Rate 42.7 mL/min (>60); Ethanol (ETOH) < 10 mg/dL; Globulin 3.2 g/dL (1.7-4.1); Glucose 96 mg/dL (80-110); HEMOLYSIS < 15 (0-50); Sodium 135 mmol/L (137-145); Total Protein 7.5 g/dL (6.3-8.2)
[2019-01-24 11:24] LABS: PTT Partial Thromboplastin Tim 52 SECONDS (26.4-36.2)
[2019-01-24 11:55] LABS: Prolactin 9.8 ng/mL (3.7-17.9)
[2019-01-24 12:22] VITALS: BP 124/60; PULSE 85; RESP 19; O2SAT 99
[2019-01-24 12:26] LABS: Bacteria Urine None Seen; RBC Urine None Seen (0-5/HPF); WBC Urine None Seen (0-5/HPF)
[2019-01-24 12:26] LABS: Thyroid Stimulating Hormone 3.26 uIU/mL (0.47-4.68)
[2019-01-24 12:49] LABS: Urine Amphetamines Negative (Negative); Urine Barbiturates Negative (Negative); Urine Benzodiazepines Negative (Negative); Urine Cocaine Negative (Negative); Urine MDMA Negative (Negative); Urine Methadone Negative (Negative); Urine Methamphetamines Negative (Negative); Urine Morphine/Opi cutoff 2000 Positive (Negative); Urine Oxycodone Positive (Negative); Urine Phencyclidine Negative (Negative); Urine Tetrahydrocannabinol Negative (Negative); Urine Tricyclic Antidepressant Positive (Negative)
[2019-01-24 12:52] LABS: Appearance Urine UA CLEAR; Bilirubin Urine UA NEGATIVE (NEGATIVE); Color Urine UA YELLOW; Glucose Urine UA NEGATIVE (Negative); Ketones Urine UA NEGATIVE (NEGATIVE); Leukocyte Esterase Urine UA NEGATIVE (NEGATIVE); Nitrite Urine UA NEGATIVE (Negative); Occult Blood Urine UA NEGATIVE (Negative); Protein Urine UA TRACE (Negative); Specific Gravity Urine UA 1.025 (1.000-1.035); Urobilinogen Urine UA 0.2 E.U./dL (0.2)
[2019-01-24 12:53] LABS: Culture Indicated Urine Cult Not Indicated; Hyaline Casts Urine 1-5/LPF
[2019-01-24 13:30] VITALS: BP 112/69; PULSE 83; RESP 16; O2SAT 99
[2019-01-24 14:08] VITALS: BP 115/62; PULSE 63; RESP 12; O2SAT 98
== END 2019-01-24 14:10 | disposition home or self-care (01) ==
PROVIDERS: Emergency Provider Emergency Medicine
DX: R41.82 Altered mental status, unspecified (principal); R44.2 Other hallucinations; Z95.1 Presence of aortocoronary bypass graft
CPT/HCPCS: 36415; 36591; 70450; 71045; 80053; 80305; 80320; 81001; 82140; 82962; 84146; 84443; 85025; 85610; 85730; 93005; 99283; 99285

== ENCOUNTER 2020-03-14 19:46 | Inpatient (IN) | payer MEDICARE, OTHER, SELFPAY ==
[2020-03-14] VITALS (23 sets, daily range): BP systolic 112–239; BP diastolic 74–155; PULSE 80–100; RESP 9–40; TEMP 36.7; O2SAT 91–100
--- NOTE | 2020-03-14 19:51 | DI.CT.S_ITS ---
PROCEDURE: CT HEAD/BRAIN WO CON INDICATIONS: confusion, multiple falls TECHNIQUE: Noncontrast 4.5 mm thick angled axial sections acquired from the foramen magnum to the vertex, with coronal and sagittal reformats. For radiation dose reduction, the following was used: automated exposure control, adjustment of mA and/or kV according to patient size. COMPARISON: [facility], CT, CT HEAD/BRAIN WO CON, 01/24/2019, 11:11. FINDINGS: Image quality: Excellent. CSF spaces: Basal cisterns are patent. No extra-axial fluid collections. The ventricles are symmetric in size and shape. Brain: No intracranial bleeds or masses. There is cerebral volume loss for age, with resultant ventricular and sulcal prominence. There are periventricular and deep white matter chronic small vessel ischemic changes. There is intracranial internal carotid artery atherosclerosis. Skull and face: Calvarium and visualized facial bones appear intact, without suspicious lesions. Near complete opacification of the left maxillary sinus. Carotid atherosclerotic plaques incidentally noted. IMPRESSION: No acute intracranial process. Dictated by: Johnathon Ching M.D. on 03/14/2020 at 20:46 Approved by: Johnathon Ching M.D. on 03/14/2020 at 20:48
[2020-03-14 20:09] LABS: Add Manual Diff / Slide Review NO; Basophils Absolute Auto 100 /uL (0-100); Eosinophils Absolute Auto 100 /uL (0-450); Eosinophils Percent Auto 1.8 % (2-4); Hematocrit 43.9 % (41-53); Hemoglobin 14.8 g/dL (13.5-17.5); Lymphocytes Absolute Auto 1800 /uL (1100-4500); Lymphocytes Percent Auto 26.8 % (25-40); Mean Corpuscular HGB Conc 33.7 % (30-36); Mean Corpuscular Hemoglobin 27.7 PG (26-34); Mean Corpuscular Volume 82.4 fL (80-100); Monocytes Absolute Auto 700 /uL (0-900); Monocytes Percent Auto 10.5 % (3-14); Neutrophils Absolute Auto 4100 /uL (1500-7000); Neutrophils Percent Auto 59.9 % (50-75); Platelet Count 136 X10^3/uL (150-400); Red Blood Cell Count 5.33 X10^6/uL (4.5-5.9); Red Cell Distribution Width 16.3 % (11.6-14.8); White Blood Cell Count 6.8 X10^3/uL (4.5-11.0)
[2020-03-14 20:16] LABS: INR 1.3 (0.9-1.3); Prothrombin Time 14.4 SECONDS (10.1-12.7)
[2020-03-14 20:18] LABS: PTT Partial Thromboplastin Tim 42 SECONDS (26.4-36.2)
[2020-03-14 20:23] LABS: Lactate (Lactic Acid) 1.1 mmol/L (0.7-2.1)
[2020-03-14 20:25] LABS: Acetaminophen < 10 ug/mL (10-30); Alanine Aminotransferase 14 IU/L (<50); Albumin 4.5 g/dL (3.5-5.0); Albumin Globulin Ratio 1.3 (1.0-2.8); Alkaline Phosphatase 62 U/L (38-126); Aspartate Aminotransferase 39 IU/L (17-59); Bilirubin Total 1.8 mg/dL (0.2-1.3); Blood Urea Nitrogen 22 mg/dL (9-20); Calcium 9.6 mg/dL (8.4-10.2); Carbon Dioxide 25 mmol/L (22-32); Chloride 100 mmol/L (98-107); Creatine Kinase 180 U/L (55-170); Estimated Glomerular Filt Rate > 60.0 mL/min (>60); Ethanol (ETOH) < 10 mg/dL; Globulin 3.4 g/dL (1.7-4.1); Glucose 117 mg/dL (80-110); Sodium 135 mmol/L (137-145); Total Protein 7.9 g/dL (6.3-8.2)
[2020-03-14 20:29] LABS: HEMOLYSIS 70 (0-50)
[2020-03-14 20:30] LABS: Potassium 4.4 mmol/L (3.4-5.1)
[2020-03-14 20:37] LABS: Troponin I 0.032 ng/mL (0.01-0.034)
[2020-03-14 20:39] LABS: Procalcitonin 0.17 ng/mL (<0.5)
[2020-03-14 20:41] LABS: Prolactin 31.2 ng/mL (3.7-17.9)
--- NOTE | 2020-03-14 20:44 | ED_ITS ---
HPI - Neuro Symptoms/Deficit General Chief Complaint: Neuro Symptoms/Deficit Stated Complaint: Confusion Time Seen by Provider: 03/14/20 19:48 Source: EMS Mode of arrival: EMS Limitations: altered mental status History of Present Illness HPI Narrative: 75M former smoker with history of hypertension, hyperlipidemia, coronary artery disease status post CABG, at diabetes presents by EMS for evaluation of a relatively sudden onset altered mental status. He had been in his normal state of health until leaving to go get some food at a local restaurant. He left at 5:45 p.m. and on his arrival home he was clearly acting altered per the . He has had a gradually worsening headache and denies any neck pain or fever. He did have an episode of vomiting on arrival to the department. He is answering questions appropriately but sluggish to respond and with episodes of confusion. He did have a fall this evening after arriving home but denies any injury as a consequence. When asked how he drove home from the restaurant he states very carefully. Today is his birthday and he denies any alcohol or illicit drug use. He apparently had similar episode a few days ago that spontaneously resolved. He has had no fever or chills and no exposure to persons known to have coronavirus Onset (ago): hour(s) Timing confirmed by: spouse Location: altered History of same: Yes Severity: moderate Quality: constant Exacerbating factors: none Context: recent fall and other On Anticoagulants: Yes (xeralto) Associated symptoms: confusion, headaches and nausea/vomiting Related Data Home Medications Medication Instructions Recorded Confirmed Metformin Hydrochloride 1,275 mg PO BID #0 11/06/12 (GLUCOPHAGE) VITAMIN D (Vitamin D3) #0 11/06/12 aspirin 81 mg PO QDAY #0 11/06/12 clopidogrel [Plavix] 75 mg PO QDAY #0 11/06/12 hydrochlorothiazide 50 mg PO QDAY #0 11/06/12 insulin glargine [Lantus U-100 0 unit SQ BID #0 11/06/12 Insulin] lisinopril 20 mg PO QDAY #0 11/06/12 metoprolol tartrate 25 mg PO BID #0 11/06/12 omeprazole #0 11/06/12 simvastatin 20 mg PO QDAY #0 11/06/12 testosterone cypionate #0 11/06/12 [Depo-Testosterone] rivaroxaban [Xarelto] 20 mg PO DAILY 03/14/20 03/14/20 Allergies Allergy/AdvReac Type Severity Reaction Status Date / Time ferrous sulfate Allergy Muscle Pain Verified 03/14/20 20:28 gabapentin Allergy Confusion Verified 03/14/20 20:28 zolpidem [From Ambien] Allergy Confusion Verified 03/14/20 20:28 NSAIDS (Non-Steroidal AdvReac Severe kidney Verified 03/14/20 20:28 Anti-Inflamma disease Review of Systems Constitutional Constitutional: Denies chills, Denies fatigue, Denies fever(s), Denies frequent falls, Reports headache(s), Denies lethargy and Denies weakness Eyes Eyes: Denies change in vision, Denies eye discharge, Denies irritation and Denies loss of vision ENT Ears, Nose, Mouth, and Throat: Denies change in voice, Denies dizziness, Reports headache(s), Denies neck pain, Denies sore throat and Denies throat swelling Cardiovascular Cardiovascular: Denies chest pain, Denies irregular heart rhythm, Denies lightheadedness, Denies palpitations, Denies dyspnea, Denies dyspnea on exertion and Denies orthopnea Respiratory Respiratory: Denies cough, Denies dyspnea, Denies dyspnea on exertion and Denies wheezing Gastrointestinal Gastrointestinal: Denies abdominal pain, Denies change in bowel habits, Denies diarrhea, Denies nausea and Reports vomiting Musculoskeletal Musculoskeletal: Denies neck pain and Denies numbness Integumentary/Breasts Skin/Breast: Denies pruritus, Denies erythema, Denies rash and Denies wounds Neurologic Neurologic: Denies behavioral changes, Reports confusion, Denies dizziness, Denies frequent falls, Reports headache(s), Denies loss of vision, Denies numbness and Denies weakness Psychiatric Psychiatric: Denies anxiety, Denies behavioral changes, Reports confusion, Denies depression, Denies homicidal ideation and Denies suicidal ideation Endocrine Endocrine: Denies fatigue, Denies flushing and Denies palpitations Hematologic/Lymphatic Hematologic/Lymphatic: Denies easy bruising Allergic/Immunologic Allergic/Immunologic: Denies urticaria, Denies throat swelling and Denies wheezing Patient History Medical History (Updated 03/15/20 @ 02:09 by Tay Evans DO) Atrial fibrillation (Chronic) Coronary artery disease (Chronic) Diabetes (Chronic) Dyslipidemia (Chronic) Hypertension (Chronic) Sleep apnea (Chronic) Surgical History (Updated 01/24/19 @ 11:17 by Brandy Chandler DO) Hx of cholecystectomy (Chronic) S/P CABG x 4 (Chronic) Social History (Updated 01/24/19 @ 11:17 by Brandy Chandler DO) marital status: details: x 9 months Smoking Status: Former smoker Smoking Status: Former smoker alcohol intake frequency: holidays/special occasions only Substance Use Type: does not use Exam Narrative Exam Narrative: GENERAL: [75] year old patient appears stated age. Well- nourished, well-developed patient, in obvious distress. Patient answers questions appropriately but takes sometime arriving and answers and has some confusing speech as part of his communication HEAD: Atraumatic. Normocephalic. EYES: Pupils equal round and reactive. Extraocular motions intact. No scleral icterus. No injection or drainage. ENT: Nose without bleeding, purulent drainage. Throat without erythema, tonsillar hypertrophy or exudate. Airway patent. NECK: Trachea midline. Non tender CARDIOVASCULAR: Regular rate and rhythm without murmurs, gallops, or rubs. RESPIRATORY: Clear to auscultation. Breath sounds equal bilaterally. No wheezes, rales, or rhonchi. GASTROINTESTINAL: Abdomen soft, non-tender, nondistended. EXTREMITIES: No edema or joint tenderness. BACK: Nontender without deformity or crepitance. No flank tenderness. NEURO: AOx3. No focal findings such as numbness, tingling or weakness SKIN: No rash or erythema of visible areas Initial Vital Signs Initial Vital Signs: Vital Signs Temperature 98.1 F 03/14/20 19:50 Pulse Rate 80 03/14/20 19:50 Respiratory Rate 16 03/14/20 19:50 Blood Pressure 180/94 H 03/14/20 19:50 Pulse Oximetry 99 03/14/20 19:50 Course Orders Ordered: ED Orders 03/14/20 19:50 EKG-12 Lead Stat 03/14/20 19:51 CT head/brain wo con Stat 03/14/20 19:55 Acetaminophen Stat Complete Blood Count AUTO DIFF Stat Comprehensive Metabolic Panel Stat Ethanol (ETOH) Stat Lactate (Lactic Acid) Stat Partial Thromboplastin Time Stat Procalcitonin Stat Prolactin Stat Prothrombin Time INR Stat Salicylate Stat Thyroid Stimulating Hormone Stat Troponin & CK Cardiac Panel Stat Type and Screen Stat 03/14/20 20:40 Blood Culture Stat 03/14/20 20:51 CT angio head and neck Stat 03/14/20 21:30 Urinalysis and Microscopic Stat Urine Drug Screen, Rapid Stat 03/15/20 XR abdomen min 2V Stat Haloperidol (Haldol) 2 mg IV Q1H PRN PRN Reason: Agitation Last Admin: 03/14/20 23:35 Dose: 2 mg Documented by: ABEBA Sodium Chloride (Normal Saline 0.9%) 1,000 mls @ 150 mls/hr IV CONT KIMBERLY Last Infusion: 03/15/20 00:46 Dose: 0 mls/hr Documented by: Admin: 03/14/20 20:47 Dose: 150 mls/hr Documented by: ONEIDA Discontinued Medications Ketorolac Tromethamine (Toradol) 10 mg IV NOW ONE Stop: 03/14/20 22:44 Last Admin: 03/14/20 22:57 Dose: 10 mg Documented by: SHIKHA Labetalol HCl (Trandate) 10 mg IV NOW ONE Stop: 03/14/20 22:30 Last Admin: 03/14/20 23:19 Dose: 10 mg Documented by: SHIKHA Labetalol HCl (Trandate) 10 mg IV NOW ONE Stop: 03/15/20 00:47 Last Admin: 03/15/20 00:52 Dose: 10 mg Documented by: SHIKHA Ondansetron HCl (Zofran) 4 mg IV NOW ONE Stop: 03/14/20 20:32 Last Admin: 03/14/20 20:48 Dose: 4 mg Documented by: ONEIDA Reevaluation(s) Reevaluation #1: patient continuing to escalate. He is restless and confused. Multiple attempts to verbally de-escalate. No complaint of pain. No focal findings. Head CT unremarkable. BP controlled. Urine clear. Abdomen soft. He is trying to climb out of bed and becoming violtent with staff, grabbing, yelling. He is confused and trying to get out of bed and clearly becoming a risk to himself and staff. Haldol 2mg ordered IV and it is given and patient escalating despite repeat attempts at verbal de-escalation. Decision to chemically restrain at 2340. Qeax-rq-[id number] completed. Miguelina called [phone] Consultations Consultation #1: call to Neuro / [place] to discuss the case. Given rapid onset of symptoms and apparent partial neglect of his left side they agree with admission and need for MRI. We did discuss LP but agree that it is of low yield and is unsafe while patient is on Xarelto. Will hold Xarelto in event he needs LP moving forward. Unlikely to be focal seizure. Vital Signs Vital signs: Vital Signs - 8 hr 03/14/20 19:50 03/14/20 20:32 03/14/20 21:20 Temperature 98.1 F Pulse Rate 80 84 92 H Respiratory Rate 16 20 16 Blood Pressure 180/94 H Blood Pressure [Left Arm] 169/94 H 187/89 H Pulse Oximetry 99 93 03/14/20 21:31 03/14/20 23:19 03/14/20 23:56 Temperature Pulse Rate 91 H 100 H 97 H Respiratory Rate 9 L 18 Blood Pressure 186/142 H Blood Pressure [Left Arm] 165/74 H 224/115 H Pulse Oximetry 98 97 03/15/20 00:35 03/15/20 00:52 Temperature Pulse Rate 98 H 97 H Respiratory Rate 16 Blood Pressure 228/103 H Blood Pressure [Left Arm] 204/79 H Pulse Oximetry 98 MDM - Neuro Symptoms/Deficit Lab Data Result diagrams: 03/14/20 19:55 03/14/20 19:55 Labs: Lab Results 03/14/20 03/14/20 03/14/20 Range/Units 19:55 19:55 19:55 WBC (4.5-11.0) X10^3/uL RBC (4.5-5.9) X10^6/uL Hgb (13.5-17.5) g/dL Hct (41-53) % MCV (80-100) fL MCH (26-34) PG MCHC (30-36) % RDW (11.6-14.8) % Plt Count (150-400) X10^3/uL Neut % (Auto) (50-75) % Lymph % (Auto) (25-40) % [place] % (Auto) (3-14) % Eos % (Auto) (2-4) % Baso % (Auto) (0-2) % Neut # (Auto) (7265-6020) /uL Lymph # (Auto) (2146-1675) /uL [place] # (Auto) (0-900) /uL Eos # (Auto) (0-450) /uL Baso # (Auto) (0-100) /uL PT (10.1-12.7) SECONDS INR (0.9-1.3) APTT (26.4-36.2) SECONDS Sodium (137-145) mmol/L Potassium (3.4-5.1) mmol/L Chloride (98-107) mmol/L Carbon Dioxide (22-32) mmol/L BUN (9-20) mg/dL Creatinine (0.66-1.25) mg/dL Estimated GFR (>60) mL/min BUN/Creatinine Ratio (6-22) Glucose (80-110) mg/dL Lactate (0.7-2.1) mmol/L Calcium (8.4-10.2) mg/dL Total Bilirubin (0.2-1.3) mg/dL AST (17-59) IU/L ALT (<50) IU/L Alkaline Phosphatase (38-126) U/L Total Creatine Kinase 180 H (55-170) U/L CK-MB (CK-2) 5.04 H (<2.37) ng/mL CK-MB (CK-2) Rel Index 2.8 (1.5-5.0) % Troponin I 0.032 (0.01-0.034) ng/mL Total Protein (6.3-8.2) g/dL Albumin (3.5-5.0) g/dL Globulin (1.7-4.1) g/dL Albumin/Globulin Ratio (1.0-2.8) Procalcitonin 0.17 (<0.5) ng/mL TSH (0.47-4.68) uIU/mL Prolactin (3.7-17.9) ng/mL Urine Color Urine Appearance Urine pH (4.5-8.0) Ur Specific [place] (1.000-1.035) Urine Protein (Negative) Urine Glucose (UA) (Negative) g/dL Urine Ketones (NEGATIVE) Urine Occult Blood (Negative) Urine Nitrate (Negative) Urine Bilirubin (NEGATIVE) Urine Urobilinogen (0.2) E.U./dL Ur Leukocyte Esterase (NEGATIVE) Urine RBC (0-5/HPF) Urine WBC (0-5/HPF) Urine Bacteria (None) Ur Culture Indicated? Micro UA Comment Salicylates (<20) mg/dL U Opiates 300ng/mL cut (Negative) Ur Oxycodone Screen (Negative) Urine Methadone Screen (Negative) Acetaminophen (10-30) ug/mL Ur Barbiturates Screen (Negative) U Tricyclic Antidepress (Negative) Ur Phencyclidine Scrn (Negative) Ur Amphetamines Screen (Negative) U Methamphetamines Scrn (Negative) Ur MDMA Scrn (Ecstasy) (Negative) U Benzodiazepines Scrn (Negative) Urine Cocaine Screen (Negative) U Marijuana (THC) Screen (Negative) Ethyl Alcohol ( - 10) mg/dL Blood Type A Negative Antibody Screen Negative 03/14/20 03/14/20 03/14/20 Range/Units 19:55 19:55 19:55 WBC 6.8 (4.5-11.0) X10^3/uL RBC 5.33 (4.5-5.9) X10^6/uL Hgb 14.8 (13.5-17.5) g/dL Hct 43.9 (41-53) % MCV 82.4 (80-100) fL MCH 27.7 (26-34) PG MCHC 33.7 (30-36) % RDW 16.3 H (11.6-14.8) % Plt Count 136 L (150-400) X10^3/uL Neut % (Auto) 59.9 (50-75) % Lymph % (Auto) 26.8 (25-40) % [place] % (Auto) 10.5 (3-14) % Eos % (Auto) 1.8 L (2-4) % Baso % (Auto) 1.0 (0-2) % Neut # (Auto) 4100 (4543-8382) /uL Lymph # (Auto) 1800 (3176-3097) /uL [place] # (Auto) 700 (0-900) /uL Eos # (Auto) 100 (0-450) /uL Baso # (Auto) 100 (0-100) /uL PT 14.4 H (10.1-12.7) SECONDS INR 1.3 (0.9-1.3) APTT 42 H D (26.4-36.2) SECONDS Sodium 135 L (137-145) mmol/L Potassium 4.4 (3.4-5.1) mmol/L Chloride 100 (98-107) mmol/L Carbon Dioxide 25 (22-32) mmol/L BUN 22 H (9-20) mg/dL Creatinine 1.10 (0.66-1.25) mg/dL Estimated GFR > 60.0 (>60) mL/min BUN/Creatinine Ratio 20.0 (6-22) Glucose 117 H (80-110) mg/dL Lactate (0.7-2.1) mmol/L Calcium 9.6 (8.4-10.2) mg/dL Total Bilirubin 1.8 H (0.2-1.3) mg/dL AST 39 (17-59) IU/L ALT 14 (<50) IU/L Alkaline Phosphatase 62 (38-126) U/L Total Creatine Kinase (55-170) U/L CK-MB (CK-2) (<2.37) ng/mL CK-MB (CK-2) Rel Index (1.5-5.0) % Troponin I (0.01-0.034) ng/mL Total Protein 7.9 (6.3-8.2) g/dL Albumin 4.5 (3.5-5.0) g/dL Globulin 3.4 (1.7-4.1) g/dL Albumin/Globulin Ratio 1.3 (1.0-2.8) Procalcitonin (<0.5) ng/mL TSH (0.47-4.68) uIU/mL Prolactin 31.2 H (3.7-17.9) ng/mL Urine Color Urine Appearance Urine pH (4.5-8.0) Ur Specific [place] (1.000-1.035) Urine Protein (Negative) Urine Glucose (UA) (Negative) g/dL Urine Ketones (NEGATIVE) Urine Occult Blood (Negative) Urine Nitrate (Negative) Urine Bilirubin (NEGATIVE) Urine Urobilinogen (0.2) E.U./dL Ur Leukocyte Esterase (NEGATIVE) Urine RBC (0-5/HPF) Urine WBC (0-5/HPF) Urine Bacteria (None) Ur Culture Indicated? Micro UA Comment Salicylates 1.0 (<20) mg/dL U Opiates 300ng/mL cut (Negative) Ur Oxycodone Screen (Negative) Urine Methadone Screen (Negative) Acetaminophen < 10 L (10-30) ug/mL Ur Barbiturates Screen (Negative) U Tricyclic Antidepress (Negative) Ur Phencyclidine Scrn (Negative) Ur Amphetamines Screen (Negative) U Methamphetamines Scrn (Negative) Ur MDMA Scrn (Ecstasy) (Negative) U Benzodiazepines Scrn (Negative) Urine Cocaine Screen (Negative) U Marijuana (THC) Screen (Negative) Ethyl Alcohol < 10 ( - 10) mg/dL Blood Type Antibody Screen 03/14/20 03/14/20 03/14/20 Range/Units 19:55 19:55 21:30 WBC (4.5-11.0) X10^3/uL RBC (4.5-5.9) X10^6/uL Hgb (13.5-17.5) g/dL Hct (41-53) % MCV (80-100) fL MCH (26-34) PG MCHC (30-36) % RDW (11.6-14.8) % Plt Count (150-400) X10^3/uL Neut % (Auto) (50-75) % Lymph % (Auto) (25-40) % [place] % (Auto) (3-14) % Eos % (Auto) (2-4) % Baso % (Auto) (0-2) % Neut # (Auto) (5666-1241) /uL Lymph # (Auto) (0575-9781) /uL [place] # (Auto) (0-900) /uL Eos # (Auto) (0-450) /uL Baso # (Auto) (0-100) /uL PT (10.1-12.7) SECONDS INR (0.9-1.3) APTT (26.4-36.2) SECONDS Sodium (137-145) mmol/L Potassium (3.4-5.1) mmol/L Chloride (98-107) mmol/L Carbon Dioxide (22-32) mmol/L BUN (9-20) mg/dL Creatinine (0.66-1.25) mg/dL Estimated GFR (>60) mL/min BUN/Creatinine Ratio (6-22) Glucose (80-110) mg/dL Lactate 1.1 (0.7-2.1) mmol/L Calcium (8.4-10.2) mg/dL Total Bilirubin (0.2-1.3) mg/dL AST (17-59) IU/L ALT (<50) IU/L Alkaline Phosphatase (38-126) U/L Total Creatine Kinase (55-170) U/L CK-MB (CK-2) (<2.37) ng/mL CK-MB (CK-2) Rel Index (1.5-5.0) % Troponin I (0.01-0.034) ng/mL Total Protein (6.3-8.2) g/dL Albumin (3.5-5.0) g/dL Globulin (1.7-4.1) g/dL Albumin/Globulin Ratio (1.0-2.8) Procalcitonin (<0.5) ng/mL TSH 1.81 (0.47-4.68) uIU/mL Prolactin (3.7-17.9) ng/mL Urine Color Yellow Urine Appearance Clear Urine pH 7.5 (4.5-8.0) Ur Specific [place] 1.010 (1.000-1.035) Urine Protein Trace H (Negative) Urine Glucose (UA) Negative (Negative) g/dL Urine Ketones Trace H (NEGATIVE) Urine Occult Blood Negative (Negative) Urine Nitrate Negative (Negative) Urine Bilirubin Negative (NEGATIVE) Urine Urobilinogen 1.0 (0.2) E.U./dL Ur Leukocyte Esterase Negative (NEGATIVE) Urine RBC None seen (0-5/HPF) Urine WBC None seen (0-5/HPF) Urine Bacteria None seen (None) Ur Culture Indicated? Cult not indicated Micro UA Comment Microscopic normal Salicylates (<20) mg/dL U Opiates 300ng/mL cut (Negative) Ur Oxycodone Screen (Negative) Urine Methadone Screen (Negative) Acetaminophen (10-30) ug/mL Ur Barbiturates Screen (Negative) U Tricyclic Antidepress (Negative) Ur Phencyclidine Scrn (Negative) Ur Amphetamines Screen (Negative) U Methamphetamines Scrn (Negative) Ur MDMA Scrn (Ecstasy) (Negative) U Benzodiazepines Scrn (Negative) Urine Cocaine Screen (Negative) U Marijuana (THC) Screen (Negative) Ethyl Alcohol ( - 10) mg/dL Blood Type Antibody Screen 03/14/20 Range/Units 21:30 WBC (4.5-11.0) X10^3/uL RBC (4.5-5.9) X10^6/uL Hgb (13.5-17.5) g/dL Hct (41-53) % MCV (80-100) fL MCH (26-34) PG MCHC (30-36) % RDW (11.6-14.8) % Plt Count (150-400) X10^3/uL Neut % (Auto) (50-75) % Lymph % (Auto) (25-40) % [place] % (Auto) (3-14) % Eos % (Auto) (2-4) % Baso % (Auto) (0-2) % Neut # (Auto) (0656-6945) /uL Lymph # (Auto) (4048-6013) /uL [place] # (Auto) (0-900) /uL Eos # (Auto) (0-450) /uL Baso # (Auto) (0-100) /uL PT (10.1-12.7) SECONDS INR (0.9-1.3) APTT (26.4-36.2) SECONDS Sodium (137-145) mmol/L Potassium (3.4-5.1) mmol/L Chloride (98-107) mmol/L Carbon Dioxide (22-32) mmol/L BUN (9-20) mg/dL Creatinine (0.66-1.25) mg/dL Estimated GFR (>60) mL/min BUN/Creatinine Ratio (6-22) Glucose (80-110) mg/dL Lactate (0.7-2.1) mmol/L Calcium (8.4-10.2) mg/dL Total Bilirubin (0.2-1.3) mg/dL AST (17-59) IU/L ALT (<50) IU/L Alkaline Phosphatase (38-126) U/L Total Creatine Kinase (55-170) U/L CK-MB (CK-2) (<2.37) ng/mL CK-MB (CK-2) Rel Index (1.5-5.0) % Troponin I (0.01-0.034) ng/mL Total Protein (6.3-8.2) g/dL Albumin (3.5-5.0) g/dL Globulin (1.7-4.1) g/dL Albumin/Globulin Ratio (1.0-2.8) Procalcitonin (<0.5) ng/mL TSH (0.47-4.68) uIU/mL Prolactin (3.7-17.9) ng/mL Urine Color Urine Appearance Urine pH (4.5-8.0) Ur Specific R[place] (1.000-1.035) Urine Protein (Negative) Urine Glucose (UA) (Negative) g/dL Urine Ketones (NEGATIVE) Urine Occult Blood (Negative) Urine Nitrate (Negative) Urine Bilirubin (NEGATIVE) Urine Urobilinogen (0.2) E.U./dL Ur Leukocyte Esterase (NEGATIVE) Urine RBC (0-5/HPF) Urine WBC (0-5/HPF) Urine Bacteria (None) Ur Culture Indicated? Micro UA Comment Salicylates (<20) mg/dL U Opiates 300ng/mL cut Positive H (Negative) Ur Oxycodone Screen Positive H (Negative) Urine Methadone Screen Negative (Negative) Acetaminophen (10-30) ug/mL Ur Barbiturates Screen Negative (Negative) U Tricyclic Antidepress Positive H (Negative) Ur Phencyclidine Scrn Negative (Negative) Ur Amphetamines Screen Negative (Negative) U Methamphetamines Scrn Negative (Negative) Ur MDMA Scrn (Ecstasy) Negative (Negative) U Benzodiazepines Scrn Negative (Negative) Urine Cocaine Screen Negative (Negative) U Marijuana (THC) Screen Negative (Negative) Ethyl Alcohol ( - 10) mg/dL Blood Type Antibody Screen Imaging Data CT scan - head: Radiologist's Impression: Chart Viewer Diagnostics DATE TYPE STATUS REF RANGE/AUTHOR Hx 03/14/20 20:51 Johnathon Ching 03/14/20 19:51 Johnathon Ching 01/24/19 11:08 Escobar Cardona 01/24/19 11:08 Escobar Cardona Kenneth De Guzman 75, M0 1945 REG ER, Main ED R08 114.71kg Neuro Symptoms/Deficit Search Chart No Data to Display NF - Not included in interaction checking Muscle Pain Confusion Confusion kidney disease No Data to Display Today 21:31 Kenneth De Guzman 75 M [address] [address] [address] Scan Report Signed Patient: Vince De GuzmanyMR#: [id number] : 6Acct:[id number] Age/Sex: 75 / MDate of Service: 03/14/20 Loc: ED Accession Number: [id number] Procedure: CT head/brain wo con Ordering Provider: Tay Evans D.O. PROCEDURE: CT HEAD/BRAIN WO CON INDICATIONS: confusion, multiple falls TECHNIQUE: Noncontrast 4.5 mm thick angled axial sections acquired from the foramen magnum to the vertex, with coronal and sagittal reformats. For radiation dose reduction, the following was used: automated exposure control, adjustment of mA and/or kV according to patient size. COMPARISON: [facility], CT, CT HEAD/BRAIN WO CON, 01/24/2019, 11:11. FINDINGS: Image quality: Excellent. CSF spaces: Basal cisterns are patent. No extra-axial fluid collections. The ventricles are symmetric in size and shape. Brain: No intracranial bleeds or masses. There is cerebral volume loss for age, with resultant ventricular and sulcal prominence. There are periventricular and deep white matter chronic small vessel ischemic changes. There is intracranial internal carotid artery atherosclerosis. Skull and face: Calvarium and visualized facial bones appear intact, without suspicious lesions. Near complete opacification of the left maxillary sinus. Carotid atherosclerotic plaques incidentally noted. IMPRESSION: No acute intracranial process. Dictated by: Johnathon Ching M.D. on 03/14/2020 at 20:46 Approved by: Johnathon Ching M.D. on 03/14/2020 at 20:48 [place] [address] CT Scan Report Signed Patient: Darío De Guzman#: [id number] : 6Acct:[id number] Age/Sex: 75 / MDate of Service: 03/14/20 Loc: ED Accession Number: [id number] Procedure: CT angio head and neck Ordering Provider: Tay Evans D.O. PROCEDURE: CT ANGIO HEAD AND NECK INDICATIONS: severe headache, on Xarelto, confusion TECHNIQUE: Pre-contrast 4.5 mm thick sections acquired from the foramen magnum to the vertex. After the administration of intravenous contrast, 1 mm thick sections acquired from the aortic arch through the [place]. Post-contrast 4.5 mm thick sections then re- acquired from the foramen magnum to the vertex. 3-dimensional rpwrdwa-ezfqsxgka-tijdvtklhh (MIP) and/or volume rendering reformats were acquired of the central intracranial vasculature and neck separately. COMPARISON: None. FINDINGS: Image quality: Motion degraded examination. BRAIN: CSF spaces: Ventricles are normal in size and shape. Basal cisterns are patent. No extra-axial fluid collections. Brain: No midline shift. No intracranial bleeds or masses. Farah-white matter interface appears intact. Skull and face: Calvarium and facial bones appear intact, without suspicious lesions. Orbits appear normal. Severe left maxillary sinus disease. HEAD CT ANGIOGRAPHY: Anterior circulation: Intracranial internal carotid arteries are normal in size and flow. The flow within the paired anterior cerebral arteries is normal and sym metric. The flow within the middle cerebral arteries is normal and symmetric. The anterior communicating artery is seen. No aneurysms are seen. Posterior circulation: Visualized portions of the vertebral arteries demonstrate normal caliber, and join to form a normal appearing basilar artery. origin of the right [facility]. Flow within the posterior cerebral arteries is normal and symmetric. No aneurysms are seen. NECK CT ANGIOGRAPHY: Carotid system: The great vessels demonstrate a conventional anatomy as they arise from the aortic arch. The origins of the common carotid arteries appear patent. Bilateral carotid atherosclerotic plaque. 50% focal stenosis at the origin the left ICA. No definite hemodynamically significant right ICA stenosis identified Posterior circulation: The origins of the vertebral arteries both appear widely patent. Dominant right vertebral artery. Diminutive basilar artery. Soft tissues: Visualized neck soft tissues demonstrate no suspicious ab normalities. Bones: No suspicious bony lesions. Visualized cervical spine appears normally aligned. IMPRESSION: No intracranial focal stenosis or occlusion. Bilateral carotid atherosclerotic plaque. 50% focal stenosis at the origin of left ICA. No definite hemodynamically significant right ICA stenosis. Severe left maxillary sinus disease. Any quantitative measurements of stenosis were performed using NASCET criteria. Dictated by: Johnathon Ching M.D. on 03/14/2020 at 21:32 Approved by: Johnathon Ching M.D. on 03/14/2020 at 21:39 Discharge Plan Departure Patient Disposition: Admitted as Observation Clinical Impression: Encephalopathy acute, Acute delirium Admit Date/Time: 03/15/20 03:02 Admit Provider: Joe Gore Eswk-va-Qzjn Restraint Vyvk-yw-Zwds Evaluation Ezuo-zr-Owag #1: Date: 03/14/20 Time: 23:44 Patient Appearance: Well Groomed Level of Consciousness: Combative, Disoriented, Follows Commands and Restless Speech Pattern: Animated Mood Description: Angry and Hostile Ability to Follow Directions: Poor Respirations: Normal respiratory rate Cardiac: Regular Rate Circulation: Moves all extremities Behavior necessitating restraint: Confusion Restraint risks explained to patient: Yes Restraint risks explained to family: No
[2020-03-14] MEDS: SODIUM CHLORIDE 0.9% 1,000 ML 150 ML IV (20:47)
[2020-03-14 20:48] LABS: CKMB % Relative Index 2.8 % (1.5-5.0); Creatine Kinase MB 5.04 ng/mL (<2.37)
[2020-03-14] MEDS: ONDANSETRON 4 MG/2 ML INJ IV (20:48)
--- NOTE | 2020-03-14 20:51 | DI.CT.S_ITS ---
PROCEDURE: CT ANGIO HEAD AND NECK INDICATIONS: severe headache, on Xarelto, confusion TECHNIQUE: Pre-contrast 4.5 mm thick sections acquired from the foramen magnum to the vertex. After the administration of intravenous contrast, 1 mm thick sections acquired from the aortic arch through the [place] of [place]. Post-contrast 4.5 mm thick sections then re-acquired from the foramen magnum to the vertex. 3-dimensional hdtoxxb-wlosueayp-tnjyatbdhf (MIP) and/or volume rendering reformats were acquired of the central intracranial vasculature and neck separately. COMPARISON: None. FINDINGS: Image quality: Motion degraded examination. BRAIN: CSF spaces: Ventricles are normal in size and shape. Basal cisterns are patent. No extra-axial fluid collections. Brain: No midline shift. No intracranial bleeds or masses. Farah-white matter interface appears intact. Skull and face: Calvarium and facial bones appear intact, without suspicious lesions. Orbits appear normal. Severe left maxillary sinus disease. HEAD CT ANGIOGRAPHY: Anterior circulation: Intracranial internal carotid arteries are normal in size and flow. The flow within the paired anterior cerebral arteries is normal and symmetric. The flow within the middle cerebral arteries is normal and symmetric. The anterior communicating artery is seen. No aneurysms are seen. Posterior circulation: Visualized portions of the vertebral arteries demonstrate normal caliber, and join to form a normal appearing basilar artery. origin of the right GEOLOGICAL SCOUT. Flow within the posterior cerebral arteries is normal and symmetric. No aneurysms are seen. NECK CT ANGIOGRAPHY: Carotid system: The great vessels demonstrate a conventional anatomy as they arise from the aortic arch. The origins of the common carotid arteries appear patent. Bilateral carotid atherosclerotic plaque. 50% focal stenosis at the origin the left ICA. No definite hemodynamically significant right ICA stenosis identified Posterior circulation: The origins of the vertebral arteries both appear widely patent. Dominant right vertebral artery. Diminutive basilar artery. Soft tissues: Visualized neck soft tissues demonstrate no suspicious abnormalities. Bones: No suspicious bony lesions. Visualized cervical spine appears normally aligned. IMPRESSION: No intracranial focal stenosis or occlusion. Bilateral carotid atherosclerotic plaque. 50% focal stenosis at the origin of left ICA. No definite hemodynamically significant right ICA stenosis. Severe left maxillary sinus disease. Any quantitative measurements of stenosis were performed using NASCET criteria. Dictated by: Johnathon Ching M.D. on 03/14/2020 at 21:32 Approved by: Johnathon Ching M.D. on 03/14/2020 at 21:39
[2020-03-14 20:58] LABS: Thyroid Stimulating Hormone 1.81 uIU/mL (0.47-4.68)
[2020-03-14 21:34] LABS: Bacteria Urine None Seen; RBC Urine None Seen (0-5/HPF); WBC Urine None Seen (0-5/HPF)
[2020-03-14 21:36] LABS: Appearance Urine UA CLEAR; Bilirubin Urine UA NEGATIVE (NEGATIVE); Color Urine UA YELLOW; Glucose Urine UA NEGATIVE (Negative); Ketones Urine UA TRACE (NEGATIVE); Leukocyte Esterase Urine UA NEGATIVE (NEGATIVE); Nitrite Urine UA NEGATIVE (Negative); Occult Blood Urine UA NEGATIVE (Negative); Protein Urine UA TRACE (Negative); pH Urine UA 7.5 (4.5-8.0)
[2020-03-14 21:43] LABS: UR Morphine/Opiate cutoff 300 Positive (Negative); Ur Creatinine 20 (Normal); Urine Amphetamines Negative (Negative); Urine Barbiturates Negative (Negative); Urine Benzodiazepines Negative (Negative); Urine Cocaine Negative (Negative); Urine MDMA Negative (Negative); Urine Methadone Negative (Negative); Urine Methamphetamines Negative (Negative); Urine Oxycodone Positive (Negative); Urine Phencyclidine Negative (Negative); Urine Tetrahydrocannabinol Negative (Negative); Urine Tricyclic Antidepressant Positive (Negative); Urine pH 7.5 (Normal)
--- NOTE | 2020-03-14 21:54 | PC.NURSE ---
Patient appears to be lucid at times but then exhibits moments of confusion. He is stable on his feet and was able to ambulate to the bedside commode but his confusion made him a fall risk. He was able to state his orientation to person, place, and time accurately stating that he knew it [birth year] his birthday. He complained of excruciating head pain and was struggling to get off the table during his CTA during imaging. His necklace was taken off during the CTA and placed into a urine cup and given to his son, Talon. Talon is with him at bedside.
[2020-03-14 21:57] LABS: Culture Indicated Urine Cult Not Indicated; Urine Comments Microscopic Normal
--- NOTE | 2020-03-14 22:02 | PC.NURSE ---
Patient was handed off to Nela, By Sindy
[2020-03-14] MEDS: KETOROLAC 60 MG/2 ML VIAL 10 MG IV (22:57)
[2020-03-14] MEDS: LABETALOL 20 MG/4 ML SYRINGE 10 MG IV (23:19)
[2020-03-14] MEDS: HALOPERIDOL 5 MG/ML VIAL 2 MG IV (23:35)
[2020-03-14] MEDS: LORazepam 2 MG/ML INJ (23:49)
[2020-03-14] MEDS: diphenhydrAMINE 50 MG/ML VIAL (23:49)
--- NOTE | 2020-03-14 23:49 | PC.NURSE ---
Pt with increasing agitation/delerium, yelling out, trying to get out of bed. Dr Evans at bedside. Verbal order received for 5mg haldol IV, which was given. Pt continued to escalate. yelling out, thrashing in bed, Let me out! I need to get out! Let me sit on the throne! Verbal order received from Dr Evans for 50mg Benedryl IM and 2 mg ativan IM, which were given at 2340. Pt contines to yell out, Call my and tell her to come get me! You can't keep me here! Let me out of this bed Pt grabbing at caregivers and thrashing wildly in bed, difficult to redirect. Pt assited to void per urinal. RN and EDUCATIONAL AID remain at bedside for safety.
[2020-03-15] VITALS (35 sets, daily range): BP systolic 147–228; BP diastolic 65–153; PULSE 86–116; RESP 16–42; TEMP 36.2–37.2; O2SAT 95–105; BMI 37.8
--- NOTE | 2020-03-15 | DI.RAD.S_ITS ---
PROCEDURE: XR ABDOMEN MIN 2V INDICATIONS: ABDOMINAL PAIN TECHNIQUE: 2 views of the abdomen were acquired. COMPARISON: [facility], CR, XR CHEST 1 VIEW, 04/26/2019, 22:45. FINDINGS: Surgical changes and devices: Posterior changes are redemonstrated in the visualized mediastinum. Bowel: No pneumoperitoneum. The bowel gas pattern appears within normal limits. Soft tissues: No suspicious abdominal calcifications. Bones: No suspicious bony abnormalities. IMPRESSION: 1. No acute intra-abdominal radiographic abnormality. Dictated by: Lencho Mccormick M.D. on 03/15/2020 at 9:02 Approved by: Lencho Mccormick M.D. on 03/15/2020 at 9:18
--- NOTE | 2020-03-15 00:25 | PC.NURSE ---
patient resting with eyes closed and his oxygen sat drops down to 88%. patient placed on 2L of oxygen via NC. patient has a history of sleep apnea. provider aware and no new orders at this time.
[2020-03-15] MEDS: LABETALOL 20 MG/4 ML SYRINGE 10 MG IV ×2 (00:52→22:19)
[2020-03-15 03:14] LABS: COVID19 -Nasal RAPID Negative (Negative)
[2020-03-15] MEDS: HALOPERIDOL 5 MG/ML VIAL 2 MG IV ×2 (03:28→04:24)
[2020-03-15] MEDS: LORazepam 2 MG/ML INJ 1 MG IV (03:29)
--- NOTE | 2020-03-15 03:47 | DI.MRI.S_ITS ---
PROCEDURE: MR STROKE Pre- and post-contrast brain MRI, non-contrast brain MR angiogram, pre- and postcontrast neck MR angiogram INDICATIONS: Acutely altered mental status TECHNIQUE: Brain: Noncontrast axial T1 spin echo, axial T2 fast spin echo, sagittal and axial FLAIR, coronal T2 fast spin echo, axial gradient echo, axial diffusion and ADC through the brain. After the administration of contrast, axial 3D VIBE of the cranial vasculature and brain. Brain MRA: Non-contrast 3-D time of flight MR angiogram, with multiple pehbymp-trsuwujax-khrdytfusi (MIP) reformats performed. Neck MRA: Axial and sagittal TruFISP through the neck. Coronal dynamic MR angiogram during administration of contrast in the arterial and venous phases, with 3-dimenstional ybucwzb-kghmylyxg-hlzrvrllul (MIP) reformats constructed from subtraction images. COMPARISON: [facility], CT, CT ANGIO HEAD AND NECK, 03/14/2020, 20:55. [facility], CT, CT HEAD/BRAIN WO CON, 01/24/2019, 11:11. [facility], CT, CT HEAD/BRAIN WO CON, 03/14/2020, 20:06. FINDINGS: Image quality: This examination is limited by involuntary motion artifact. BRAIN: CSF spaces: Ventricles are normal in size and shape. Basal cisterns are patent. No extra-axial fluid collections. Brain: No intracranial bleeds or mass effects. Farah-white matter interface is normal. Diffusion weighted images show no acute ischemic insults. Brainstem appears normal. Normal intravascular flow voids are present. No abnormal intracranial enhancement. Skull and face: Calvarial marrow signal is normal. Orbits appear normal. Note is made of bilateral lens replacements. Sinuses: Focal moderate to prominent left maxillary sinus mucosal thickening is seen. There is also moderate mucosal thickening within the left ethmoid air cells. The soft tissue material within the left ethmoid air cells enhances. Mild mucosal thickening is seen elsewhere within the paranasal sinuses. No abnormal fluid is seen within the mastoid air cells. BRAIN MR ANGIOGRAM: Anterior circulation: Intracranial internal carotid arteries are normal in size and enhancement. The flow within the paired anterior cerebral arteries is normal and symmetric. The flow within the middle cerebral arteries is normal and symmetric. The anterior communicating artery is not well seen. No stenoses, occlusions, or aneurysms. Posterior circulation: The distal left V4 segment is poorly seen. The distal right vertebral artery is within normal limits. There is a normal appearing basilar artery. There is a prominent right posterior communicating artery seen, with an accompanying diminutive right P1 segment. This is attributed to a type origin of the right posterior cerebral artery, which is considered to be a normal developmental variant of typically no clinical consequence. The flow within the posterior cerebral arteries is normal and symmetric. NECK MR ANGIOGRAM: Evaluation of the neck arteries is limited by motion artifact in Carotids: Great vessels demonstrate a conventional anatomy as they arise from the aortic arch. The origins of the common carotid arteries appear patent. The calibers and courses of both common carotid arteries are normal. The bifurcation regions demonstrate atherosclerotic irregularity. There is approximately 50% stenosis involving the right proximal internal carotid artery. The left proximal internal carotid artery is not well-seen. Posterior circulation: The origins of the vertebral arteries are not well-seen. The right vertebral artery is dominant the left. The distal left V4 segment is not well-seen. Miscellaneous: Subclavian arteries appear patent. Pre-contrast images through the neck show no soft tissue abnormalities. IMPRESSION: BRAIN MRI: No findings of acute or subacute infarction can be seen. Note is made of age-appropriate brain parenchymal volume loss and chronic small vessel ischemic changes. Left-sided paranasal sinus disease is seen, including enhancement within the left ethmoid air cells. Differential diagnosis includes neoplasm and prominent focal inflammatory change. BRAIN MR ANGIOGRAM: The distal left V4 segment is not well-seen and is believed to be highly stenotic. NECK MR ANGIOGRAM: Evaluation of the neck arteries is particularly limited by motion artifact. (The recent prior neck CT angiogram evaluates the neck arteries better.) There is approximately 50% stenosis involving right proximal internal carotid artery. The left proximal internal carotid artery is not well seen. The origins of the vertebral arteries are not well-seen. Dictated by: Vijay Sage M.D. on 03/15/2020 at 10:51 Approved by: Vijay Sage M.D. on 03/15/2020 at 11:01
--- NOTE | 2020-03-15 04:02 | P.HP_ITS ---
History of Present Illness History of Present Illness Date Patient Seen: 03/15/20 Time Patient Seen: 04:02 Chief complaint: Confusion Narrative: Mr. Kenneth De Guzman is a 75-year-old male patient with a history significant for coronary artery disease status post CABG x4, atrial fibrillation, aortic stenosis, hypertension, hyperlipidemia and diabetes who presents to the ER via EMS with a sudden onset altered mental status. The patient had been in his usual state health this evening going out to dinner with friends and family. Upon returning home the patient was beginning to act abnormally. He has had associated symptoms of a gradually worsening headache but has made no comment of visual changes, weakness, numbness or tingling. He is also have had an apparent ataxia with sustaining of fall without associated trauma and while in route to the hospital with AMS had 1 episode of nausea with emesis. The patient has had multiple prior episodes last being a few days ago and was seen for a similar presentation in the emergency room in January of 2019. The patient is an unreliable historian due to confusional status and upon admission is obtained id due to sedation required for patient's safety. Per family report he has had no recent complaints of illness, no fevers or chills and no known COVID-19 exposures. He has had no complaints of chest pain or palpitations, shortness of breath cough or wheezing. He has had no nausea vomiting until and route to the hospital. There is no reports of constipation or diarrhea. He has reported no urinary symptoms. At baseline the patient is active and independent in all aspects of daily living. Upon arrival to the ER the patient is found to be afebrile at 91, heart rate of 80, hypertensive 180/94, respirations 16 saturating 99% on room air. The patient underwent a CT angiogram of the head neck related to headaches, confusion and being on Xarelto. No acute intracranial processes are identified bilateral atherosclerotic plaque 50% at the origin of the left ICA, severe left maxillary sinus disease. CT of the head finds no acute intracranial processes. Twelve lead EKG finds sinus rhythm with a ventricular rate of 85, left bundle branch block, left atrial enlargement, no evidence of acute ischemia or infarct. On laboratory analysis his white count of 6.8 without shift, hemoglobin 14.8, hematocrit 43.9, platelets 136. On coagulation he has a PT of 14.4, INR 1.3, PTT of 42. He slightly low on sodium 135, potassium 4.4 with a BUN of 22 and a creatinine of 1.1. His nonfasting glucose is 17. His liver function tests are all within normal limits. He has a total CK of 180 and CK-MB of 5.04. His index % is 2.8. Troponin is 0.0232. He has prolactin which is found to be elevated at 31.2. Urinalysis is positive for trace ketones and protein but no infection. Urinary tox screen is positive for oxycodone and tricyclic antidepressants. In the ER the patient has received multiple doses of labetalol for hypertension. He has also required repeat doses of Haldol Benadryl and Ativan due to severity of agitation and confusion. Neurology is consulted who believes that this is not seizure activity is presenting more of a concern for micro emboli as requesting an MRI and echocardiogram. Do not feel any urgent need for transfer at this time. The patient is admitted to the medicine service for altered mental status of unclear etiology requiring additional monitoring and evaluation. Patient History Medical History Atrial fibrillation (Chronic) Coronary artery disease (Chronic) Diabetes (Chronic) Dyslipidemia (Chronic) Hypertension (Chronic) Sleep apnea (Chronic) Surgical History Hx of cholecystectomy (Chronic) S/P CABG x 4 (Chronic) Family & Social History Family history unavailable: No (The patient is unable to provide social or family history.) Safety & Behavioral: Feels Safe in Current Yes Environment Been Physically Hurt or No Threatened By a Person Tobacco & Substance use: Smoking Status Former smoker alcohol intake frequency holiday/special occasion Substance Use Type does not use Comment: The patient lives in a single family home with his to whom he has been for approximately 2 years. Smoking: Patient known to be former smoker Alcohol: Unknown Substance use: Unknown Advanced directives: The patient will be FULL CODE. His is his surrogate decision maker. Meds Home Medications and Allergies Home Medications Medication Instructions Recorded Confirmed Type Metformin Hydrochloride 1,275 mg PO BID #0 11/06/12 History (GLUCOPHAGE) VITAMIN D (Vitamin D3) #0 11/06/12 History aspirin 81 mg PO QDAY #0 11/06/12 History clopidogrel [Plavix] 75 mg PO QDAY #0 11/06/12 History hydrochlorothiazide 50 mg PO QDAY #0 11/06/12 History insulin glargine [Lantus U-100 0 unit SQ BID #0 11/06/12 History Insulin] lisinopril 20 mg PO QDAY #0 11/06/12 History metoprolol tartrate 25 mg PO BID #0 11/06/12 History omeprazole #0 11/06/12 History simvastatin 20 mg PO QDAY #0 11/06/12 History testosterone cypionate #0 11/06/12 History [Depo-Testosterone] rivaroxaban [Xarelto] 20 mg PO DAILY 03/14/20 03/14/20 History Allergies Allergy/AdvReac Type Severity Reaction Status Date / Time ferrous sulfate Allergy Muscle Pain Verified 03/14/20 20:28 gabapentin Allergy Confusion Verified 03/14/20 20:28 zolpidem [From Ambien] Allergy Confusion Verified 03/14/20 20:28 NSAIDS (Non-Steroidal AdvReac Severe kidney Verified 03/14/20 20:28 Anti-Inflamma disease Review of Systems Review of Systems ROS: Yes All systems reviewed with the patient and are negative except as otherwise documented Exam Vital Signs (past 8 hours): - 03/14/20 20:32 03/14/20 21:20 03/14/20 21:31 Temperature Pulse Rate 84 92 H 91 H Respiratory Rate 20 16 9 L Blood Pressure Blood Pressure [Left Arm] 169/94 H 187/89 H 165/74 H Pulse Oximetry 93 98 03/14/20 23:19 03/14/20 23:56 03/15/20 00:35 Temperature Pulse Rate 100 H 97 H 98 H Respiratory Rate 18 16 Blood Pressure 186/142 H Blood Pressure [Left Arm] 224/115 H 204/79 H Pulse Oximetry 97 98 03/15/20 00:52 03/15/20 03:50 Temperature 98.9 F Pulse Rate 97 H 102 H Respiratory Rate 20 Blood Pressure 228/103 H 195/100 H Blood Pressure [Left Arm] Pulse Oximetry 98 Oxygen Delivery Method Nasal Cannula Oxygen Flow Rate 2 Narrative Exam Narrative: GENERAL APPEARANCE: well developed, obese male who is presently minimally arousable secondary to sedation in no acute distress. HEENT: Normocephalic, PERRLA, 2.5 mm OU, gaze is conjugate, conjunctiva clear, no rhinorrhea, mucous membranes are moist and pink without lesions or exudate. NECK/THYROID: neck supple, no JVD, no thyromegaly, trachea midline. LYMPH NODES: no cervical or supraclavicular lymphadenopathy. SKIN: [place], warm and dry, no visible lesions, rashes, ulcerations or petechiae. HEART: regular rate and rhythm, S1-S2, 3/6 systolic murmur, no rubs or gallops, brisk capillary refill, 1+ pretibial edema LUNGS: clear to auscultation bilaterally, no coarseness crackles or wheezing, no cough present CHEST: Symmetrical movement, no accessory muscle use, good tidal volume. ABDOMEN: Soft, round, dull to percussion without tenderness, no organomegaly, hypoactive bowel tones. EXTREMITIES: Jerky movements of extremities, MOEx4, strength is 5/5 and symmetrical, no deformities or joint effusions. NEUROLOGIC: Patient presently sedated with conjugate gaze, jerking/spastic movements extremities of all extremities Objective Labs Result Diagrams: 03/14/20 19:55 03/14/20 19:55 Labs: Laboratory Results - last 24 hr 03/14/20 03/14/20 03/14/20 19:55 19:55 19:55 WBC RBC Hgb Hct MCV MCH MCHC RDW Plt Count Neut % (Auto) Lymph % (Auto) [place] % (Auto) Eos % (Auto) Baso % (Auto) Neut # (Auto) Lymph # (Auto) [place] # (Auto) Eos # (Auto) Baso # (Auto) PT INR APTT Sodium Potassium Chloride Carbon Dioxide BUN Creatinine Estimated GFR BUN/Creatinine Ratio Glucose Lactate Calcium Magnesium Total Bilirubin AST ALT Alkaline Phosphatase Total Creatine Kinase 180 H CK-MB (CK-2) 5.04 H CK-MB (CK-2) Rel Index 2.8 Troponin I 0.032 Total Protein Albumin Globulin Albumin/Globulin Ratio Procalcitonin 0.17 TSH Prolactin Urine Color Urine Appearance Urine pH Ur Specific [place] Urine Protein Urine Glucose (UA) Urine Ketones Urine Occult Blood Urine Nitrate Urine Bilirubin Urine Urobilinogen Ur Leukocyte Esterase Urine RBC Urine WBC Urine Bacteria Ur Culture Indicated? Micro UA Comment Salicylates U Opiates 300ng/mL cut Ur Oxycodone Screen Urine Methadone Screen Acetaminophen Ur Barbiturates Screen U Tricyclic Antidepress Ur Phencyclidine Scrn Ur Amphetamines Screen U Methamphetamines Scrn Ur MDMA Scrn (Ecstasy) U Benzodiazepines Scrn Urine Cocaine Screen U Marijuana (THC) Screen Ethyl Alcohol COVID-19 PCR Blood Type A Negative Antibody Screen Negative 03/14/20 03/14/20 03/14/20 19:55 19:55 19:55 WBC 6.8 RBC 5.33 Hgb 14.8 Hct 43.9 MCV 82.4 MCH 27.7 MCHC 33.7 RDW 16.3 H Plt Count 136 L Neut % (Auto) 59.9 Lymph % (Auto) 26.8 [place] % (Auto) 10.5 Eos % (Auto) 1.8 L Baso % (Auto) 1.0 Neut # (Auto) 4100 Lymph # (Auto) 1800 [place] # (Auto) 700 Eos # (Auto) 100 Baso # (Auto) 100 PT 14.4 H INR 1.3 APTT 42 H D Sodium 135 L Potassium 4.4 Chloride 100 Carbon Dioxide 25 BUN 22 H Creatinine 1.10 Estimated GFR > 60.0 BUN/Creatinine Ratio 20.0 Glucose 117 H Lactate Calcium 9.6 Magnesium Total Bilirubin 1.8 H AST 39 ALT 14 Alkaline Phosphatase 62 Total Creatine Kinase CK-MB (CK-2) CK-MB (CK-2) Rel Index Troponin I Total Protein 7.9 Albumin 4.5 Globulin 3.4 Albumin/Globulin Ratio 1.3 Procalcitonin TSH Prolactin 31.2 H Urine Color Urine Appearance Urine pH Ur Specific [place] Urine Protein Urine Glucose (UA) Urine Ketones Urine Occult Blood Urine Nitrate Urine Bilirubin Urine Urobilinogen Ur Leukocyte Esterase Urine RBC Urine WBC Urine Bacteria Ur Culture Indicated? Micro UA Comment Salicylates 1.0 U Opiates 300ng/mL cut Ur Oxycodone Screen Urine Methadone Screen Acetaminophen < 10 L Ur Barbiturates Screen U Tricyclic Antidepress Ur Phencyclidine Scrn Ur Amphetamines Screen U Methamphetamines Scrn Ur MDMA Scrn (Ecstasy) U Benzodiazepines Scrn Urine Cocaine Screen U Marijuana (THC) Screen Ethyl Alcohol < 10 COVID-19 PCR Blood Type Antibody Screen 03/14/20 03/14/20 03/14/20 19:55 19:55 19:55 WBC RBC Hgb Hct MCV MCH MCHC RDW Plt Count Neut % (Auto) Lymph % (Auto) [place] % (Auto) Eos % (Auto) Baso % (Auto) Neut # (Auto) Lymph # (Auto) [place] # (Auto) Eos # (Auto) Baso # (Auto) PT INR APTT Sodium Potassium Chloride Carbon Dioxide BUN Creatinine Estimated GFR BUN/Creatinine Ratio Glucose Lactate 1.1 Calcium Magnesium 0.9 L* Total Bilirubin AST ALT Alkaline Phosphatase Total Creatine Kinase CK-MB (CK-2) CK-MB (CK-2) Rel Index Troponin I Total Protein Albumin Globulin Albumin/Globulin Ratio Procalcitonin TSH 1.81 Prolactin Urine Color Urine Appearance Urine pH Ur Specific [place] Urine Protein Urine Glucose (UA) Urine Ketones Urine Occult Blood Urine Nitrate Urine Bilirubin Urine Urobilinogen Ur Leukocyte Esterase Urine RBC Urine WBC Urine Bacteria Ur Culture Indicated? Micro UA Comment Salicylates U Opiates 300ng/mL cut Ur Oxycodone Screen Urine Methadone Screen Acetaminophen Ur Barbiturates Screen U Tricyclic Antidepress Ur Phencyclidine Scrn Ur Amphetamines Screen U Methamphetamines Scrn Ur MDMA Scrn (Ecstasy) U Benzodiazepines Scrn Urine Cocaine Screen U Marijuana (THC) Screen Ethyl Alcohol COVID-19 PCR Blood Type Antibody Screen 03/14/20 03/14/20 03/15/20 21:30 21:30 02:00 WBC RBC Hgb Hct MCV MCH MCHC RDW Plt Count Neut % (Auto) Lymph % (Auto) [place] % (Auto) Eos % (Auto) Baso % (Auto) Neut # (Auto) Lymph # (Auto) [place] # (Auto) Eos # (Auto) Baso # (Auto) PT INR APTT Sodium Potassium Chloride Carbon Dioxide BUN Creatinine Estimated GFR BUN/Creatinine Ratio Glucose Lactate Calcium Magnesium Total Bilirubin AST ALT Alkaline Phosphatase Total Creatine Kinase CK-MB (CK-2) CK-MB (CK-2) Rel Index Troponin I Total Protein Albumin Globulin Albumin/Globulin Ratio Procalcitonin TSH Prolactin Urine Color Yellow Urine Appearance Clear Urine pH 7.5 Ur Specific [place] 1.010 Urine Protein Trace H Urine Glucose (UA) Negative Urine Ketones Trace H Urine Occult Blood Negative Urine Nitrate Negative Urine Bilirubin Negative Urine Urobilinogen 1.0 Ur Leukocyte Esterase Negative Urine RBC None seen Urine WBC None seen Urine Bacteria None seen Ur Culture Indicated? Cult not indicated Micro UA Comment Microscopic normal Salicylates U Opiates 300ng/mL cut Positive H Ur Oxycodone Screen Positive H Urine Methadone Screen Negative Acetaminophen Ur Barbiturates Screen Negative U Tricyclic Antidepress Positive H Ur Phencyclidine Scrn Negative Ur Amphetamines Screen Negative U Methamphetamines Scrn Negative Ur MDMA Scrn (Ecstasy) Negative U Benzodiazepines Scrn Negative Urine Cocaine Screen Negative U Marijuana (THC) Screen Negative Ethyl Alcohol COVID-19 PCR Negative Blood Type Antibody Screen Assessment & Plan Assessment & Plan narrative: This is a 75-year-old male patient who presents to the hospital with altered mental status sudden in onset. The patient has had prior similar episodes that have been self-resolving. 1. Toxic versus metabolic encephalopathy, present on admission, active -patient presents with an onset this evening after going out to dinner for his birthday. -mental status change was progressive becoming confused and agitated in the emergency department. -per reports the patient has had multiple previous episodes last began few days ago which resolved spontaneously. -in the ER the patient received Haldol, Ativan, and Benadryl. -patient underwent CTA of the head neck without significant abnormality and a CT of the head with no acute intracranial process. -patient does not have an elevated white count, he is afebrile, urine is noninfective. CMP is unremarkable for abnormalities with a blood glucose of 117. Patient is hypertensive but has history of hypertension and does not present as hypertensive encephalopathy. -the patient does have elevated prolactin 31.2. [place] neuro is consulted by the ER provider. -ordered MR stroke is ordered with concern for showering of emboli and micro infarct per neuro consult. -will obtain echocardiogram with a history of aortic stenosis and 3/6 murmur in the setting of history of atrial fibrillation -ordered lorazepam 2 mg every 2 hours as needed for seizure activity which appears to be of behavioral manifestation. -ordered Benadryl 25 mg every 4 hours as needed. -will add magnesium level. Hypertension, present on admission, active -Patient with history of hypertension presents consistently hypertensive in the ER with a blood pressure on upon arrival of 180/94, maximum pressure was over 223 systolic. -patient received multiple doses of labetalol while in the ED, ordered labetalol 10 mg IV as needed systolic blood pressure greater than 180 or diastolic pressure greater than 100. -the patient routinely takes Toprol 25 mg twice daily and lisinopril 20 mg daily both ordered with 1st dose now. -follow blood pressures and if remain elevated despite the above treatments may consider starting nicardipine drip. Paroxysmal atrial fibrillation, chronic, currently sinus rhythm, stable. -patient has a history of coronary artery disease and aortic stenosis. -12 lead EKG is sinus rhythm at 85 with a left bundle branch block and left atrial enlargement. No signs of acute ischemia or infarct. Diabetes type 2, insulin using, present on admission, stable -blood sugar on admission labs is 117. -patient takes metformin 1275 mg twice daily and Lantus unknown dose at home. -fingersticks blood sugars a.c. and HS, coverage with low-dose correctional insulin. Isolation: None COVID-19 status: NEGATIVE VTE prophylaxis: Bilateral SCDs, enoxaparin IV fluid: Normal saline 100 cc/hour Diet: Moderate constant carbohydrate. Code status: FULL CODE The patient is admitted to the hospital due to severity of his symptoms, further evaluation and monitoring. The patient is admitted as an inpatient to the ICU with expected length of stay to be greater than 2 midnights. Critical care time: 45 minutes, greater than 50% of the time spent in direct [id number] with the patient for evaluation. COVID-19 COVID-19 status: Negative
[2020-03-15 04:04] LABS: Magnesium 0.9 mg/dL (1.6-2.3)
[2020-03-15] MEDS: diphenhydrAMINE 50 MG/ML VIAL 25 MG IV (04:24)
[2020-03-15] MEDS: LORazepam 2 MG/ML INJ IV ×2 (04:24→06:49)
[2020-03-15] MEDS: SODIUM CHLORIDE 0.9% 1,000 ML 100 ML IV ×2 (04:26→17:22)
[2020-03-15] MEDS: MAGNESIUM SULFATE 2 GM/50 ML PIGGYBACK IV ×2 (04:27→20:33)
--- NOTE | 2020-03-15 05:16 | PC.NURSE ---
ADMISSION TO ICU AT 0400- PT MOSTLY NONVERBAL, OCCASIONAL GRUNTING NOTED - UNABLE TO FOLLOW INSTRUCTIONS. TRANSFERRED TO BED, SKIN CHECK PERFORMED AND PHYSICAL ASSESSMENT COMPLETED. HIS ROOM AIR SPO2 = 87-89% PLACED 2L NC INTO HIS MOUTH HE IS MOUTH BREATHER AND USES CPAP AT HOME FOR JOLEEN. IVF INFUSING THRU RAC PERIPHERAL LINE - STAT MAG RIDER INFUSING DUE TO MAG LEVEL OF 0.9- NO EVIDENCE OF COMBATIVE BEHAVIOR OF YET- BUT DOES WINCE AGAINST AND RESIST ANY SORT OF CONTAINMENT re: BP CUFF- SEIZURE PRECAUTIONS OBSERVED
[2020-03-15 07:40] LABS: Add Manual Diff / Slide Review NO; Basophils Absolute Auto 100 /uL (0-100); Basophils Percent Auto 0.6 % (0-2); Eosinophils Absolute Auto 0 /uL (0-450); Eosinophils Percent Auto 0.1 % (2-4); Hematocrit 42.5 % (41-53); Hemoglobin 14.4 g/dL (13.5-17.5); Lymphocytes Absolute Auto 700 /uL (1100-4500); Mean Corpuscular HGB Conc 33.8 % (30-36); Mean Corpuscular Volume 82.8 fL (80-100); Monocytes Absolute Auto 500 /uL (0-900); Monocytes Percent Auto 5.1 % (3-14); Neutrophils Absolute Auto 7700 /uL (1500-7000); Neutrophils Percent Auto 86.2 % (50-75); Platelet Count 122 X10^3/uL (150-400); Red Blood Cell Count 5.14 X10^6/uL (4.5-5.9); Red Cell Distribution Width 16.2 % (11.6-14.8); White Blood Cell Count 8.9 X10^3/uL (4.5-11.0)
[2020-03-15 07:51] LABS: BUN Creatinine Ratio 20.7 (6-22); Blood Urea Nitrogen 23 mg/dL (9-20); Carbon Dioxide 25 mmol/L (22-32); Chloride 99 mmol/L (98-107); Estimated Glomerular Filt Rate > 60.0 mL/min (>60); Glucose 204 mg/dL (80-110); HEMOLYSIS 17 (0-50); Hemoglobin A1C% w Est Avg Glu 6.6 % (4.0-6.0); Potassium 4.9 mmol/L (3.4-5.1); Sodium 134 mmol/L (137-145)
[2020-03-15 07:59] LABS: Magnesium 1.6 mg/dL (1.6-2.3)
[2020-03-15] MEDS: INSULIN ASPART 100 UNIT/ML INSULN PEN SUBCUT ×2 (09:36→13:05)
--- NOTE | 2020-03-15 11:55 | DI.ECHO.S_ITS ---
Echocardiogram Report + + :Name: MELANI EDWARDS Study Date: 03/15/2020 Height: 68 in : :[facility] Weight: 248 lb : : Gender: Male BSA: 2.2 m2 : :: 1945 Age: 75 yrs BP: 158/74 mmHg: :Reason For Study: ALTERED MENTAL STATUS : :Ordering Physician: [place] : :Hospitalist Performed By: Milla Mckeon : + + Interpretation Summary Left ventricular systolic function is mildly reduced with the ejection fraction grossly estimated to be 50 to 55% with a mild dyssynchronous pattern and akinesis and thinning of the proximal one third of the inferior wall with hypokinesis extending into the proximal portion of the posterior wall. There is moderate concentric LVH with a relaxation abnormality and probable normal filling pressures. The right ventricle grossly appears normal in size with systolic function at the lower limits of normal. Right ventricular systolic pressure cannot be estimated but the CVP is likely around 3 mmHg. The left atrium is mildly enlarged. The aortic valve leaflets have moderate???severely reduced leaflet mobility with probable moderate to severe, possibly severe, aortic stenosis with a peak velocity of 3.9 m/s and a mean gradient of 36 mmHg. The valve area is estimated at 0.8 cm?? with a severity ratio of 0.29. There is trivial aortic insufficiency. There is no other significant valvular abnormality. The ascending aorta is mild???moderately enlarged and the aortic arch is mildly enlarged. The latter has increased echogenicity of its luevano, suggestive of calcific atherosclerosis. Procedure: A two-dimensional transthoracic echocardiogram with color flow and Doppler was performed. The study quality was technically difficult. There is no prior echocardiogram noted for this patient. The patient was in sinus rhythm with heart rates between 85-90 bpm during the exam. Left Ventricle: The left ventricle is normal in size. There is moderate concentric left ventricular hypertrophy. The ejection fraction is estimated to be 50-55%. Left ventricular systolic function is mildly reduced. There is akinesis of the proximal one third of the inferior wall with hypokinesis extending into the proximal portion of the posterior wall but no other focal wall motion abnormalities. Diastolic parameters suggest a relaxation abnormality of the left ventricle, consistent with probable normal filling pressures. Right Ventricle: The right ventricle is normal size. Right ventricular systolic function is at the lower limits of normal. Atria: The left atrium is mildly dilated. The right atrium is normal in size. There is no Doppler evidence for an interatrial shunt. Mitral Valve: There is mild mitral annular calcification. The mitral valve leaflets appear mildly thickened, but open well. The mitral valve leaflets are slightly calcified. There is trace mitral regurgitation. Aortic Valve: The aortic valve is moderately calcified. There is moderate to severely reduced leaflet mobility. There is moderate to severe aortic stenosis. The peak aortic velocity is 3.86 m/sec. The aortic valve mean gradient is 36 mmHg. The aortic valve area indexed to the BSA is 0.36 . There is trace aortic regurgitation. Tricuspid Valve: The tricuspid valve is normal in structure and function. There is trace tricuspid regurgitation. Pulmonary artery pressures cannot be estimated because of the lack of a measurable TR jet velocity but the IVC suggests a CVP of around 3 mmHg. Pulmonic Valve: The pulmonic valve is not well seen, but is grossly normal. There is no pulmonic valvular regurgitation. Great Vessels: The aortic root is normal size. The ascending aorta is mildmoderately enlarged. The aortic arch is mildly enlarged. The IVC is of normal diameter and collapses greater than 50% with a sniff. This suggests a low right atrial pressure of 3 mm Hg. Pericardium/ Pleura There is no pericardial effusion. There has been no significant change since the previous study. MMode/2D Measurements & Calculations LVIDd: 4.6 cm LVOT diam: 1.9 cm LVIDs: 3.7 cm Ao root diam: 3.2 cm FS: 20.6 % asc Aorta Diam: 3.8 cm IVSd: 1.3 cm Ao Arch Diam (Prox Trans): 3.1 cm LVPWd: 1.4 cm LV elena. diameter/BSA (cm/m^2): 2.1 LV sys. diameter/BSA (cm/m^2): 1.6 LA A2 area: 25.5 cm2 RA long axis: 5.5 cm LA A4 area: 20.2 cm2 RA area: 18.9 cm2 LA length (vol): 5.5 cm RA vol: 55.0 ml LA vol: 79.2 ml RA : 24.5 ml/m2 LA vol index: 35.4 ml/m2 IVC diam: 1.6 cm RVD1 (basal): 3.1 cm TAPSE: 1.7 cm Doppler Measurements & Calculations Ao V2 max: 385.3 cm/sec LVOT Max Frankie: 104.8 cm/sec Ao V2 mean: 292.3 cm/sec LV V1 max P.4 mmHg Ao max P.7 mmHg LV V1 VTI: 23.7 cm Ao mean P.2 mmHg JUAN(I,D): 0.81 cm2 Ao V2 VTI: 80.5 cm JUAN(V,D): 0.75 cm2 sev ratio: 0.29 JUAN indexed to BSA (cm^2/m^2): 0.36 MV E max frankie: 72.6 cm/sec PA V2 max: 103.2 cm/sec MV A max frankie: 103.7 cm/sec PA V2 mean: 67.9 cm/sec MV E/A: 0.70 PA mean P.2 mmHg Med Peak E' Frankie: 5.6 cm/sec E/E' med: 13.0 Lat Peak E' Frankie: 9.2 cm/sec E/E' lat: 7.9 E/e' average: 10.5 MV dec time: 0.26 sec SV(LVOT): 64.9 ml _ Reading Physician:TATYANA
[2020-03-15] MEDS: NYSTATIN POWDER 15GM 1 APPLIC TOP (13:05)
--- NOTE | 2020-03-15 14:19 | PC.NURSE ---
Pt has been obtunded this shift. No eye opening to painful stimuli but is noted to wince/facial grimace with tactile stimuli and withdraw. Does not follow commands so full neuro assessment is difficult. Pupils are equal/sluggish 2mm bilaterally. Independent movement of all extremities is noted. 2L NC in mouth for intermittent desats to 70s% r/t hx of sleep apnea ( states noncompliant with CPAP). SPO2 high 90s%. RR ranges from 18 during sleep to 30s with stimulation. Pt was escorted by this RN to MRI and returned to room with stable VS. Pt has been incontinent of urine. He pushes against staff during turns and with care but has not been violent/combative or otherwise requiring PRN meds. Spoke with via phone and updated home med rec as able. unsure of many meds and reports dyslexia. Relayed this to Dr. Lewis on rounds.
[2020-03-15] MEDS: NALOXONE 0.4 MG/ML VIAL 0.2 MG IV ×2 (16:11→16:24)
[2020-03-15 16:18] LABS: HCO3 ABG 27 mmol/L (22-26); PCO2 ABG 44.4 mmHg (35-45); PO2 ABG 112 mmHg (80-100); TCO2 ABG 28 mmol/L (21-31); pH ABG 7.39 (7.35-7.45)
[2020-03-15 16:19] LABS: Fractionated Inspired Oxygen 28; Oxygen Saturation ABG 98 % (95-100)
--- NOTE | 2020-03-15 16:29 | PC.NURSE ---
pt obtunded, responding minimally to painful stemuli. Pupils pinpoint. VSS, O2Sats 100% on 2L. ABG done and reported to , supplimental O2 dc'd and narcan 0.2mg given IV. Pt woke and answered questions appropriately, asked for the urinal and voided 280cc then fell asleep. Pupils 3mms and reactive.
[2020-03-16 00:10] VITALS: BP 171/78; PULSE 87
[2020-03-16 00:33] VITALS: BP 171/78; PULSE 87; RESP 20; TEMP 35.8; O2SAT 99
[2020-03-16 04:00] VITALS: BP 143/67; PULSE 88; RESP 18; TEMP 36.5; O2SAT 97
[2020-03-16] MEDS: SODIUM CHLORIDE 0.9% 1,000 ML 100 ML IV (05:27)
[2020-03-16 06:05] LABS: Add Manual Diff / Slide Review NO; Basophils Absolute Auto 0 /uL (0-100); Basophils Percent Auto 0.7 % (0-2); Eosinophils Absolute Auto 100 /uL (0-450); Hemoglobin 14.1 g/dL (13.5-17.5); Lymphocytes Absolute Auto 1100 /uL (1100-4500); Lymphocytes Percent Auto 17.3 % (25-40); Mean Corpuscular HGB Conc 32.8 % (30-36); Mean Corpuscular Hemoglobin 27.7 PG (26-34); Mean Corpuscular Volume 84.2 fL (80-100); Monocytes Absolute Auto 700 /uL (0-900); Monocytes Percent Auto 10.1 % (3-14); Neutrophils Absolute Auto 4600 /uL (1500-7000); Neutrophils Percent Auto 69.9 % (50-75); Platelet Count 115 X10^3/uL (150-400); Red Cell Distribution Width 16.3 % (11.6-14.8); White Blood Cell Count 6.6 X10^3/uL (4.5-11.0)
[2020-03-16 06:12] LABS: BUN Creatinine Ratio 20.8 (6-22); Blood Urea Nitrogen 20 mg/dL (9-20); Calcium 8.5 mg/dL (8.4-10.2); Carbon Dioxide 29 mmol/L (22-32); Chloride 102 mmol/L (98-107); Estimated Glomerular Filt Rate > 60.0 mL/min (>60); Glucose 128 mg/dL (80-110); HEMOLYSIS 17 (0-50); Magnesium 1.7 mg/dL (1.6-2.3); Potassium 4.1 mmol/L (3.4-5.1); Sodium 136 mmol/L (137-145)
--- NOTE | 2020-03-16 06:24 | PC.NURSE ---
[employer] Logger Note-Patient is mostly drowsy, when he does wake, he is oriented to place, month, and year, is intermittently verbally hostile, says you're bothering me and when can I get out of this long-term? Also states his arms and legs are weak and I need to move them turns on own in bed, seizure pads up, no twitching or tremors noted, was able to wash his own face and tolerate ice chips without choking. SR, BBB, PACs. Does have apnea where he desats to 85% takes oximeter and O2 off frequently. He is also incontinent of urine.
[2020-03-16 08:00] VITALS: BP 146/74; PULSE 100; RESP 24; TEMP 37; O2SAT 97
[2020-03-16] MEDS: lisinopriL 20 MG TABLET PO (08:02)
[2020-03-16] MEDS: RIVAROXABAN 10 MG TABLET 20 MG PO (08:02)
[2020-03-16] MEDS: THIAMINE 100 MG TABLET PO (08:02)
[2020-03-16] MEDS: MAGNESIUM OXIDE 400 MG TABLET PO (08:02)
--- NOTE | 2020-03-16 10:20 | PC.NURSE ---
Rec'd pt sitting up at edge of bed. He is oriented to self, place, month, year. He is asking appropriate questions about his hospital care. He is unable to recall his reason for hospitalization and events of yesterday. He states the day/date as Saturday and the . He is easily reoriented. Ambulated to BR with mostly steady gait and no assistive device. 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 He does states he falls every now and again because of this. He is voiding and has had a normal BM. Bedside swallow eval completed by this RN. Pt demonstrates safe swallow and orders received from Dr. Lewis to order a diabetic/heart healthy diet. Attempted med rec completion with pt but he is overall unsure of the doses of his medications. Pt ambulated in hallway with steady gait and Dr. Lewis standing by.
--- NOTE | 2020-03-16 10:37 | P.DS_ITS ---
History of Present Illness History of Present Illness Date Patient Seen: 03/16/20 Time Patient Seen: 10:37 Chief complaint: Confusion Narrative: As per WILTON Cross: Mr. Kenneth De Guzman is a 75-year-old male patient with a history significant for coronary artery disease status post CABG x4, atrial fibrillation, aortic stenosis, hypertension, hyperlipidemia and diabetes who presents to the ER via EMS with a sudden onset altered mental status. The patient had been in his usual state health this evening going out to dinner with friends and family. Upon returning home the patient was beginning to act abnormally. He has had associated symptoms of a gradually worsening headache but has made no comment of visual changes, weakness, numbness or tingling. He is also have had an apparent ataxia with sustaining of fall without associated trauma and while in route to the hospital with AMS had 1 episode of nausea with emesis. The patient has had multiple prior episodes last being a few days ago and was seen for a similar presentation in the emergency room in January of 2019. The patient is an unreliable historian due to confusional status and upon admission is obtained id due to sedation required for patient's safety. Per family report he has had no recent complaints of illness, no fevers or chills and no known COVID-19 exposures. He has had no complaints of chest pain or palpitations, shortness of breath cough or wheezing. He has had no nausea vomiting until and route to the hospital. There is no reports of constipation or diarrhea. He has reported no urinary symptoms. At baseline the patient is active and independent in all aspects of daily living. Upon arrival to the ER the patient is found to be afebrile at 91, heart rate of 80, hypertensive 180/94, respirations 16 saturating 99% on room air. The patient underwent a CT angiogram of the head neck related to headaches, confusion and being on Xarelto. No acute intracranial processes are identified bilateral atherosclerotic plaque 50% at the origin of the left ICA, severe left maxillary sinus disease. CT of the head finds no acute intracranial processes. Twelve lead EKG finds sinus rhythm with a ventricular rate of 85, left bundle branch block, left atrial enlargement, no evidence of acute ischemia or infarct. On laboratory analysis his white count of 6.8 without shift, hemoglobin 14.8, hematocrit 43.9, platelets 136. On coagulation he has a PT of 14.4, INR 1.3, PTT of 42. He slightly low on sodium 135, potassium 4.4 with a BUN of 22 and a creatinine of 1.1. His nonfasting glucose is 17. His liver function tests are all within normal limits. He has a total CK of 180 and CK-MB of 5.04. His index % is 2.8. Troponin is 0.0232. He has prolactin which is found to be elevated at 31.2. Urinalysis is positive for trace ketones and protein but no infection. Urinary tox screen is positive for oxycodone and tricyclic antidep ressants. In the ER the patient has received multiple doses of labetalol for hypertension. He has also required repeat doses of Haldol Benadryl and Ativan due to severity of agitation and confusion. Neurology is consulted who believes that this is not seizure activity is presenting more of a concern for micro emboli as requesting an MRI and echocardiogram. Do not feel any urgent need for transfer at this time. The patient is admitted to the medicine service for altered mental status of unclear etiology requiring additional monitoring and evaluation. Discharge Providers Provider Date of admission: 03/15/20 03:02 Discharge Date: 03/16/20 Consults: 03/15/20 03:26 Consult to Discharge Planning Routine Comment: Discharge provider: Joe Lewis DO Summary Hospital Course Discharge Diagnosis: Please see hospital course by problem list noted below Hospital Course: Mr. Kenneth De Guzman is a 75-year-old male patient with a history significant for coronary artery disease status post CABG x4, atrial fibrillation, aortic stenosis, hypertension, hyperlipidemia and diabetes who presented to the ER via EMS with a sudden onset altered mental status. The patient has had prior similar episodes that have been self-resolving. In the emergency room he was becoming confused and agitated and received Haldol, Ativan, and Benadryl. He underwent a CT of the head and neck as well as a CT of the head which showed no acute intracranial processes. He also had an MRI the following morning which did not show any evidence infarction, mass, or other underlying etiology. He was found to have severe hypo magnesemia on admission at 0.9, this improved with repletion and patient will be discharged on a oral supplement. Approximately 24 hours after admission, the patient was alert and oriented and back to his baseline mental status and was deemed stable for discharge home. 1. Toxic versus metabolic encephalopathy, present on admission, active -patient presents with onset of confusion after going out to dinner for his birthday. -mental status change was progressive becoming confused and agitated in the emergency department. -per reports the patient has had multiple previous episodes last began few days ago which resolved spontaneously. -in the ER the patient received Haldol, Ativan, and Benadryl. -patient underwent CTA of the head neck without significant abnormality and a CT of the head with no acute intracranial process. -patient does not have an elevated white count, he is afebrile, urine is noninfective. CMP is unremarkable for abnormalities with a blood glucose of 117. Patient is hypertensive but has history of hypertension and does not present as hypertensive encephalopathy. -the patient does have elevated prolactin 31.2, likely due to chronic opiate use. -ordered MR stroke which was unremarkable -possible etiologies at this point include a toxic encephalopathy secondary to chronic opiate use, however this is unlikely as patient did not report increased opiate intake recently. He did state a desire to stop taking medications. Further considerations were for hypercarbia, however his blood gas was unremarkable. Further possibility includes agitation from hypo magnesemia given level on admission. He did improve as well with supplementation, but his clinical picture was clotted by medications received in the emergency department including Haldol, Ativan, and Benadryl. He did receive Narcan without much effect in his mentation. Other possibilities include encephalopathy from hypertension, but hypertension is likely reactive to agitation as his blood pres sure improved upon arrival to the floor. 2. Hypomagnesemia, acute, present on admission -patient was given 4 g of repletion IV during his short hospitalization stay. He will be discharged on oral supplementation as an outpatient. -it is unclear if his symptoms on presentation related to severe hypo magnesemia, but this is a possibility and no other etiologies were found. 3. Hypertension, present on admission, active -Patient with history of hypertension presents consistently hypertensive in the ER with a blood pressure on upon arrival of 180/94, maximum pressure was over 223 systolic. -patient received multiple doses of labetalol while in the ED, ordered labetalol 10 mg IV as needed systolic blood pressure greater than 180 or diastolic pressure greater than 100. -patient's blood pressures improved upon arrival to the floor. He was discharged on his routine medications. 4. Paroxysmal atrial fibrillation, chronic, currently sinus rhythm, stable. -patient has a history of coronary artery disease and aortic stenosis. -12 lead EKG is sinus rhythm at 85 with a left bundle branch block and left atrial enlargement. No signs of acute ischemia or infarct. 5. Diabetes type 2, insulin using, present on admission, stable -no changes are recommended to the patient's outpatient regimen. 6. Aortic stenosis, chronic, stable 7. Coronary artery disease, chronic, stable Status at Discharge Cognitive/behavioral status at discharge: at baseline, oriented Functional status at discharge: independent ambulation Overall status at discharge: patient is back to baseline Exam Vital Signs (past 8 hours): - 03/16/20 04:00 03/16/20 08:00 Temperature 97.7 F 98.6 F Pulse Rate 88 100 H Respiratory Rate 18 24 Blood Pressure 143/67 H 146/74 H Pulse Oximetry 97 97 Oxygen Delivery Method Room Air Oxygen Flow Rate 0 Narrative Exam Narrative: GENERAL APPEARANCE: Well developed, well nourished, in no acute distress. SKIN: Inspection of the skin reveals no rashes, ulcerations or petechiae. HEENT: Normocephalic atraumatic, extraocular muscles are intact, oropharynx is clear and mucous membranes are moist, neck is supple without adenopathy NECK: Supple and symmetric. There was no thyroid enlargement, and no tenderness, or masses were felt. CHEST: Normal AP diameter and normal contour without any kyphoscoliosis. LUNGS: Auscultation of the lungs revealed no wheezes, rhonchi, or rales. CARDIOVASCULAR: There was a regular rate and rhythm with a systolic murmur, no rubs or gallops.. Peripheral pulses were 2+ and symmetric. ABDOMEN: Soft and nontender with normal bowel sounds. No ascites was noted. MUSCULOSKELETAL: There was no tenderness or effusions noted. Muscle strength and tone were normal. EXTREMITIES: No cyanosis, clubbing or edema. NEUROLOGIC: Alert and oriented x 3. Normal affect. Gait was slightly slow but steady, improved with more ambulation. Strength is +5/5 in the Upper Extremities and Lower Extremities Bilaterally. Sensation to touch was normal. Objective Labs Result Diagrams: 03/16/20 05:30 03/16/20 05:30 Labs: Laboratory Results - last 24 hr 03/15/20 03/16/20 03/16/20 16:00 05:30 05:30 WBC 6.6 RBC 5.10 Hgb 14.1 Hct 43.0 MCV 84.2 MCH 27.7 MCHC 32.8 RDW 16.3 H Plt Count 115 L Neut % (Auto) 69.9 Lymph % (Auto) 17.3 L [place] % (Auto) 10.1 Eos % (Auto) 2.0 Baso % (Auto) 0.7 Neut # (Auto) 4600 Lymph # (Auto) 1100 [place] # (Auto) 700 Eos # (Auto) 100 Baso # (Auto) 0 ABG pH 7.39 ABG pCO2 44.4 ABG pO2 112 H ABG HCO3 27 H ABG Total CO2 28 ABG O2 Saturation 98 ABG Base Excess 2.0 FiO2 28 Sodium 136 L Potassium 4.1 Chloride 102 Carbon Dioxide 29 BUN 20 Creatinine 0.96 Estimated GFR > 60.0 BUN/Creatinine Ratio 20.8 Glucose 128 H Calcium 8.5 Magnesium 1.7 Discharge Plan Discharge Plan Patient Disposition: Home Discharge comment: You were admitted to the hospital with confusion. Your MRI of your head was unremarkable and you improved over time. The exact etiology is not clear. You can consider stopping your pain medications, please take an additional magnesium supplement that has been prescribed. Discharge orders & Medications Prescriptions: New magnesium 200 mg tablet 200 mg PO BID 14 Days Qty: 28 RF: 0 Continued lisinopril 20 MG tablet 10 mg PO QDAY Qty: 0 RF: 0 Metformin Hydrochloride (GLUCOPHAGE) 1,275 mg PO BID Qty: 0 RF: 0 omeprazole 40 MG capsule,delayed release(DR/EC) 40 mg PO DAILY Qty: 0 RF: 0 aspirin 81 MG tablet,chewable 81 mg PO QDAY Qty: 0 RF: 0 VITAMIN D (Vitamin D3) Qty: 0 RF: 0 Lantus U-100 Insulin 100 UNIT/1 ML solution 100 unit SQ DAILY Qty: 0 RF: 0 hydrochlorothiazide 25 MG tablet 50 mg PO QDAY Qty: 0 RF: 0 testosterone cypionate [Depo-Testosterone] 200 MG/1 ML oil Qty: 0 RF: 0 Xarelto 20 mg tablet 20 mg PO DAILY RF: 0 cyclobenzaprine 10 mg Tablet 10 mg PO TID RF: 0 atorvastatin 20 mg Tablet 20 mg PO DAILY RF: 0 carvedilol 12.5 mg Tablet 12.5 mg PO BID RF: 0 allopurinol 100 mg Tablet 100 mg PO BID RF: 0 sildenafil 100 mg Tablet 100 mg PO DAILY PRN (Reason: Sexual Activity) RF: 0 carbidopa-levodopa 25-100 mg Tablet 1 tab PO BEDTIME RF: 0 oxycodone 10 mg tablet,oral only,ext.rel.12 hr 10 mg PO BID RF: 0 Ozempic 0.25 mg or 0.5 mg(2 mg/1.5 mL) Pen Injector 0.25 mg SUBCUT QWEEK RF: 0 Discharge Health Status Health Concerns: Low magnesium Diet/Activity/Treatments Diet: Diet as Tolerated and Carb-consistent/Diabetic Activity: As tolerated Visit Report/Discharge Packet Instructions: DI for Hypomagnesemia Visit Report Forms: Patient Portal/API, Stroke Signs & Symptoms Discharges patient from system. Discharge Date/Time: 03/16/20 11:30
--- NOTE | 2020-03-16 11:03 | CM.DANOTE ---
Addendum entered by Selena Murrell 03/16/20 11:16: Patient has outpatient f/u appointment with PC on April 18, 2020. Original Note: DCP/Assessment: Reviewed chart. Patient is a 75yr old male admitted to [facility] with altered mental status. PCP is Dr. Medina. Primary payor is 1)Medicare 2)[employer]. Met with patient explained CM/SW role. Patient unable to access yesterday 6-9 due to medication provided to patient in the ED for agitation. Patient alert and oriented x3 today. Patient reports that he hopes to d/c home today. Patient resides with his spouse/Miguelina and leads a very I lifestyle. Patient has cane that he uses prn. Patient and spouse also reside in [place]. in the winter months. Patient denies any thoughts of SI/HI. Patient became emotional when he recalls his behavior in ED. Patient reports he has no idea why he had such agitation. Not usual for patient. Patient denies any alcohol or substance abuse. Patient does have chronic pain and has been on oxycodone x20yrs. No changes made recently to his home medications. Patient did have critical magnesium level that could of contributed to his confusion. Spoke with provider/Dr. Lewis. Current plan is for patient to d/c home today. Patient with no anticipated d/c planning needs. P: Home when stable. ADITYA Jackson Discharge Planning/Care Management CM Discharge Assessment Start: 03/16/20 10:52 Freq: Status: Active Protocol: Document 03/16/20 10:53 KJS (Rec: 03/16/20 11:03 KJS [id number]) Discharge Planning Assessment Assigned Foreign Languages Professor ADITYA Jackson Contact Information Miguelina De Guzman (spouse) ph# Advance Directives? No History Provided By Patient,Medical Record Household Members significant other Type of transporation used prior to Drives own vehicle admit Independent with ADL's Yes: Uses cane as needed Is patient alert and oriented? Yes Caregiver for Another No Barriers to Discharge No Discharge Plan Home Transportation Arrangement Family to provide transportation Referrals Initiated None needed Whiteboard Updated in Patient Room with Yes name and ext. # of Foreign Languages Professor Review Status In Process Next Review Type Continued Stay Review
--- NOTE | 2020-03-16 11:33 | PC.NURSE ---
Pt d/c'd home per MD order at 1130. D/c instructions given to pt. at bedside for d/c teaching. Provided verbal and written education re hypomagnesium. Educated to new med, need to keep f/u appt as previously scheduled. Reviewed medication list with pt and and instructed them to take home medications as ordered by primary care provider as the medication list may not be correct due to insufficient information and lack of external med rec. Both pt and verbalize understanding. PIV removed as charted and ekg monitor d/c'd. Pt transferred self to w/c and left with all belongings. Escorted to POV by DRESSMAKING TEACHER in no distress.
[2020-03-20 16:07] LABS: Vitamin B1 141.4 nmol/L (66.5-200.0)
== END 2020-03-16 11:30 | disposition home or self-care (01) | DRG 640 ==
LOC: ED 03-15 02:09 → ICU 03-15 09:31 → AC 03-17 16:25 → ICU 03-17 16:25
PROVIDERS: Internal Medicine; Admitting Provider Nurse Practitioner Adult Health; Emergency Provider Emergency Medicine; Referring Provider Emergency Medicine; Visit Provider Nurse Practitioner Adult Health
DX: E83.42 Hypomagnesemia (principal); G93.41 Metabolic encephalopathy; I48.0 Paroxysmal atrial fibrillation; I10 Essential (primary) hypertension; I25.10 Atherosclerotic heart disease of native coronary artery without angina pectoris; I35.0 Nonrheumatic aortic (valve) stenosis; E11.9 Type 2 diabetes mellitus without complications; Z79.4 Long term (current) use of insulin
CPT/HCPCS: 36415; 36600; 51798; 70450; 70496; 70498; 70548; 70553; 74019; 80048; 80053; 80305; 80320; 80329; 81001; 82550; 82553; 82805; 82962; 83036; 83605; 83735; 84145; 84146; 84425; 84443; 84484; 85025; 85610; 85730; 86850; 86900; 86901; 87040; 87635; 87797; 93005; 93306; 94760; 96361; 96374; 96375; 99285; 99291; 99292; A9579; G0480; J1200; J1630; J1885; J2060; J2310; J2405

== ENCOUNTER 2022-05-27 19:31 | Inpatient (IN) | payer MEDICARE, OTHER, SELFPAY ==
[2020-03-15 04:31] VITALS: BMI 37.8
[2022-05-27] VITALS (22 sets, daily range): BP systolic 78–102; BP diastolic 46–55; PULSE 61–65; RESP 12–26; TEMP 35.7–37; O2SAT 89–100
--- NOTE | 2022-05-27 19:50 | ED_ITS ---
HPI - General Adult General Chief complaint: Skin/Abscess/Foreign Body Stated complaint: Dementia Time Seen by Provider: 05/27/22 19:49 History of Present Illness HPI narrative: 77-year-old gentleman with a history of coronary artery disease post CABG x4, paroxysmal atrial fibrillation anticoagulated on rivaroxaban, post TAVR, hypertension, hyperlipidemia, diabetes, cognitive decline, hyperlipidemia, congestive heart failure, history of B-cell lymphoma. his son called 911 today with concerns for his overall well-being and concerned that ?times he is not completely aware?. No additional history is yet available available. There is a med list that was printed out from the end of April it looks like it could have been associated with the discharge it is from [facility] and looks like it may be from [facility] who will follow-up on this to see if additional records are present. He is weak, confused, cooperative he has an ortho glass splint on the medial aspect of his left lower leg that is abrading into the top of his foot and has a significant abrasion with large hematoma to the medial aspect of his left knee with bruising extending proximal and distal from his knee with minimal range of motion at the knee. He also has a dressing in place on the left forearm with underlying skin irritation shallow ulceration and developing cellulitis, multiple bruises all over. He is pale but not complaining of headache. He will open his eyes to command but not oriented to person time place it. He states he is not in any pain at this time. Related Data Home Medications Medication Instructions Recorded Confirmed Metformin Hydrochloride 1,275 mg PO BID ##0 11/06/12 (GLUCOPHAGE) VITAMIN D (Vitamin D3) ##0 11/06/12 aspirin 81 mg chewable tablet 81 mg PO QDAY ##0 11/06/12 03/15/20 hydrochlorothiazide 25 mg tablet 50 mg PO QDAY ##0 11/06/12 insulin glargine 100 unit/mL 100 unit SQ DAILY ##0 11/06/12 03/15/20 subcutaneous solution (Lantus U-100 Insulin) lisinopril 20 mg tablet 10 mg PO QDAY ##0 11/06/12 03/15/20 omeprazole 40 mg capsule,delayed 40 mg PO DAILY ##0 11/06/12 03/15/20 release testosterone cypionate 200 mg/mL ##0 11/06/12 intramuscular oil (Depo-Testosterone) rivaroxaban 20 mg tablet (Xarelto) 20 mg PO DAILY 03/14/20 03/14/20 allopurinol 100 mg tablet 100 mg PO BID 03/15/20 03/15/20 atorvastatin 20 mg tablet 20 mg PO DAILY 03/15/20 03/15/20 carbidopa 25 mg-levodopa 100 mg 1 tab PO BEDTIME RLS 03/15/20 03/15/20 tablet carvedilol 12.5 mg tablet 12.5 mg PO BID 03/15/20 03/15/20 cyclobenzaprine 10 mg tablet 10 mg PO TID 03/15/20 03/15/20 oxycodone 10 mg tablet,crush 10 mg PO BID 03/15/20 03/15/20 resistant,extended release 12 hr semaglutide 0.25 mg or 0.5 mg (2 0.25 mg SUBCUT QWEEK 03/15/20 03/15/20 mg/1.5 mL) subcutaneous pen injector (Ozempic) sildenafil 100 mg tablet 100 mg PO DAILY PRN Sexual Activity 03/15/20 03/15/20 Allergies Allergy/AdvReac Type Severity Reaction Status Date / Time ferrous sulfate Allergy Muscle Pain Verified 03/14/20 20:28 gabapentin Allergy Confusion Verified 03/14/20 20:28 zolpidem [From Ambien] Allergy Confusion Verified 03/14/20 20:28 NSAIDS (Non-Steroidal AdvReac Severe kidney Verified 03/14/20 20:28 Anti-Inflamma disease Review of Systems Review of Systems ROS Unobtainable: Unobtainable due to mental condition Patient History Medical History Anticoagulated Atrial fibrillation Coronary artery disease Diabetes Dyslipidemia Hypertension Sleep apnea Surgical History (Updated 05/28/22 @ 04:28 by WILTON Blair) Hx of cholecystectomy S/P CABG x 4 S/P TAVR (transcatheter aortic valve replacement) Family History (Updated 05/28/22 @ 04:05 by WILTON Blair) Other Adopted Social History (Updated 01/24/19 @ 11:17 by Brandy Chandler DO) marital status: details: x 9 months household members: significant other Smoking Status: Former smoker Smoking Status: Former smoker alcohol intake frequency: holidays/special occasions only Substance Use Type: does not use Exam Initial Vital Signs Initial Vital Signs: Vital Signs Temperature 97.7 F 05/27/22 19:44 Pulse Rate 65 05/27/22 19:44 Respiratory Rate 21 05/27/22 19:44 Blood Pressure 78/54 L 05/27/22 19:44 Pulse Oximetry 97 05/27/22 19:44 Oxygen Delivery Method 05/27/22 19:44 General: Chronically ill-appearing, pale, weak but in no acute distress. He is not tachypneic and is able to speak in full sentences HEENT: Moist mucous membranes, normal sclera with reactive pupils, pale mucous membranes Neck: No JVD, supple Respiratory: Lungs are clear to auscultation, no wheezing no rales no rhonchi. Full and symmetrical air movement Cardiac: Regular rate and rhythm no murmurs no bruits Abdomen: Soft, mild distention but nontender, good bowel tones, no flank pain Skin: Pale, Warm and dry, multiple bruises some look like there from recent hospitalization and some from his very frail skin. Area of excoriation on the left forearm with a small area of ulceration without underlying abscess developing mild erythema. Left knee with a very large bulla/hematoma on the medial aspect it does not appear to be intra-articular but it is difficult to fully assess. It clearly is more than a couple of days old appears exacerbated if not caused from the splint that had been in place. There is an area of excoriation on the medial aspect of his foot from the splint as well. Neurologic: Globally weak but able to move all extremities Extremities: Left leg is described under the skin exam. Reasonable capillary refill both lower extremities. Psych: Will respond to yes or no questions but otherwise altered. Course Orders Ordered: ED Orders 05/27/22 22:00 Urine Microscopic Stat Acetaminophen (Acetaminophen 325 Mg Tablet) 650 mg PO Q6HR PRN PRN Reason: Fever/Mild Pain (1-3) Atorvastatin Calcium (Atorvastatin 20 Mg Tablet) 40 mg PO BEDTIME KIMBERLY Carvedilol (Carvedilol 12.5 Mg Tablet) 25 mg PO BID KIMBERLY Dextrose (Dextrose 50 % In Water 25 Gm/50 Ml Syringe) 25 gm IV PRN PRN PRN Reason: Hypoglycemia Duloxetine HCl (Duloxetine 30 Mg Capsule) 90 mg PO DAILY KIMBERLY Insulin Glargine (Insulin Glargine 100 Unit/Ml 3ml Pen) 30 unit SUBCUT 0800 KIMBERLY Insulin Glargine (Insulin Glargine 100 Unit/Ml 3ml Pen) 30 unit SUBCUT 2100 KIMBERLY Insulin Human Lispro (Insulin Lispro 100 Unit/Ml 3ml Vial) 0 unit SUBCUT ACHS KIMBERLY; Protocol Ondansetron HCl (Ondansetron 4 Mg/2 Ml Inj) 4 mg IV Q6HR PRN PRN Reason: Nausea And Vomiting Tramadol HCl (Tramadol 50 Mg Tablet) 50 mg PO Q4H PRN PRN Reason: Pain, Moderate (4-6) Discontinued Medications Furosemide (Furosemide 100 Mg/10 Ml Vial) 80 mg IV NOW ONE Stop: 05/28/22 00:25 Last Admin: 05/28/22 00:28 Dose: 80 mg Documented By: TANNER Sodium Chloride (Normal Saline 0.9%) 1,000 mls @ 1,000 mls/hr IV BOLUS ONE Stop: 05/27/22 20:51 Last Infusion: 05/27/22 22:33 Dose: 0 mls/hr Documented By: Admin: 05/27/22 20:35 Dose: 1,000 mls/hr Documented By: DOROTHY Piperacillin Sod/Tazobactam (Sod 4.5 gm/ Sodium Chloride) 100 mls @ 200 mls/hr IV NOW ONE Stop: 05/27/22 20:08 Last Infusion: 05/27/22 21:00 Dose: 200 mls/hr Documented By: Infusion: 05/27/22 21:00 Dose: 0 mls/hr Documented By: Admin: 05/27/22 20:35 Dose: 200 mls/hr Documented By: DOROTHY Sodium Chloride (Normal Saline 0.9%) 1,000 mls @ 1,000 mls/hr IV BOLUS ONE Stop: 05/27/22 21:09 Last Infusion: 05/27/22 22:34 Dose: 0 mls/hr Documented By: Admin: 05/27/22 20:36 Dose: 1,000 mls/hr Documented By: DOROTHY Vancomycin HCl/Dextrose (Vancomycin) 1,500 mg in 300 mls @ 200 mls/hr IV NOW ONE Stop: 05/27/22 22:14 Last Infusion: 05/27/22 22:34 Dose: 0 mls/hr Documented By: Admin: 05/27/22 21:32 Dose: 200 mls/hr Documented By: SWATI Lisinopril (Lisinopril 20 Mg Tablet) 40 mg PO DAILY KIMBERLY Vancomycin HCl (Vancomycin Per Pharmacy) 1 request MISC NOW ONE Stop: 05/27/22 20:08 Last Admin: 05/27/22 22:33 Dose: Not Given Documented By: TANNER Vital Signs Vital signs: Vital Signs - 8 hr 05/27/22 22:35 05/27/22 22:50 05/27/22 22:51 Temperature 96.3 F L 96.8 F L 98.6 F Pulse Rate 62 62 63 Respiratory Rate 12 18 18 Blood Pressure 95/55 L 98/52 L 98/52 L Pulse Oximetry 05/27/22 23:04 05/27/22 23:07 05/27/22 22:15 Temperature 96.8 F L 96.7 F L Pulse Rate 63 62 Respiratory Rate 15 18 Blood Pressure 97/52 L 102/53 L 92/51 L Pulse Oximetry 05/27/22 22:15 05/27/22 22:30 05/27/22 22:30 Temperature Pulse Rate 64 63 Respiratory Rate 20 24 Blood Pressure 95/53 L Pulse Oximetry 100 99 05/27/22 22:36 05/27/22 22:36 05/27/22 22:45 Temperature Pulse Rate 62 62 Respiratory Rate 14 13 Blood Pressure 95/55 L Pulse Oximetry 100 99 05/27/22 22:45 05/27/22 23:00 05/27/22 23:01 Temperature Pulse Rate 64 64 Respiratory Rate 20 21 Blood Pressure 98/52 L Pulse Oximetry 97 99 05/27/22 23:01 05/27/22 23:15 05/27/22 23:15 Temperature Pulse Rate 63 Respiratory Rate 21 Blood Pressure 97/52 L 101/54 L Pulse Oximetry 97 05/27/22 23:30 05/27/22 23:30 05/27/22 23:45 Temperature Pulse Rate 61 62 Respiratory Rate 20 26 H Blood Pressure 96/53 L Pulse Oximetry 89 L 98 05/27/22 23:45 05/28/22 00:00 05/28/22 00:00 Temperature Pulse Rate 60 Respiratory Rate 21 Blood Pressure 102/53 L 109/57 L Pulse Oximetry 99 05/28/22 00:15 05/28/22 00:15 05/28/22 00:30 Temperature Pulse Rate 61 Respiratory Rate 19 Blood Pressure 101/52 L 95/54 L Pulse Oximetry 100 05/28/22 00:30 05/28/22 00:45 05/28/22 00:45 Temperature Pulse Rate 61 61 Respiratory Rate 17 19 Blood Pressure 103/52 L Pulse Oximetry 100 100 Medical Decision Making Lab Data Result diagrams: 05/28/22 01:37 05/27/22 19:40 Labs: Lab Results 05/27/22 05/27/22 05/27/22 Range/Units 19:40 19:40 19:40 WBC 7.1 (4.5-11.0) X10^3/uL RBC 2.75 L (4.5-5.9) X10^6/uL Hgb 6.7 L* (13.5-17.5) g/dL Hct 20.8 L* (41-53) % MCV 75.7 L (80-100) fL MCH 24.6 L (26-34) PG MCHC 32.4 (30-36) % RDW 24.5 H (11.6-14.8) % Plt Count 206 (150-400) X10^3/uL Neut % (Auto) 75.0 (50-75) % Lymph % (Auto) 11.4 L (25-40) % [place] % (Auto) 9.8 (3-14) % Eos % (Auto) 2.8 (2-4) % Baso % (Auto) 1.0 (0-2) % Neut # (Auto) 5400 (1536-3414) /uL Lymph # (Auto) 800 L (8629-6980) /uL [place] # (Auto) 700 (0-900) /uL Eos # (Auto) 200 (0-450) /uL Baso # (Auto) 100 (0-100) /uL RBC Morphology Not Reportable Anisocytosis 3+ H Sodium 132 L (137-145) mmol/L Potassium 4.3 (3.4-5.1) mmol/L Chloride 97 L (98-107) mmol/L Carbon Dioxide 27 (22-32) mmol/L BUN 61 H (9-20) mg/dL Creatinine 3.18 H (0.66-1.25) mg/dL Estimated GFR 19 L (>60) mL/min BUN/Creatinine Ratio 19.2 (6-22) Glucose 130 H (80-110) mg/dL Hemoglobin A1c (4.0-6.0) % Lactate 1.3 (0.7-2.1) mmol/L Calcium 8.4 (8.4-10.2) mg/dL Magnesium (1.6-2.3) mg/dL Total Bilirubin 1.5 H (0.2-1.3) mg/dL AST 28 (17-59) IU/L ALT 27 (<50) IU/L Alkaline Phosphatase 170 H (38-126) U/L NT-Pro-B Natriuret Pep (<450) pg/mL Total Protein 7.1 (6.3-8.2) g/dL Albumin 3.6 (3.5-5.0) g/dL Globulin 3.5 (1.7-4.1) g/dL Albumin/Globulin Ratio 1.0 (1.0-2.8) Lipase 135 (23-300) U/L Procalcitonin 0.50 (<0.5) ng/mL Urine RBC (0-5/HPF) Urine WBC (0-5/HPF) Urine Bacteria (None) Urine Yeast (None) Ur Culture Indicated? SARS-CoV-2 (PCR) (Negative) Blood Type Antibody Screen Crossmatch 05/27/22 05/27/22 05/27/22 Range/Units 19:40 19:40 19:40 WBC (4.5-11.0) X10^3/uL RBC (4.5-5.9) X10^6/uL Hgb (13.5-17.5) g/dL Hct (41-53) % MCV (80-100) fL MCH (26-34) PG MCHC (30-36) % RDW (11.6-14.8) % Plt Count (150-400) X10^3/uL Neut % (Auto) (50-75) % Lymph % (Auto) (25-40) % [place] % (Auto) (3-14) % Eos % (Auto) (2-4) % Baso % (Auto) (0-2) % Neut # (Auto) (9357-2728) /uL Lymph # (Auto) (5180-9070) /uL [place] # (Auto) (0-900) /uL Eos # (Auto) (0-450) /uL Baso # (Auto) (0-100) /uL RBC Morphology Anisocytosis Sodium (137-145) mmol/L Potassium (3.4-5.1) mmol/L Chloride (98-107) mmol/L Carbon Dioxide (22-32) mmol/L BUN (9-20) mg/dL Creatinine (0.66-1.25) mg/dL Estimated GFR (>60) mL/min BUN/Creatinine Ratio (6-22) Glucose (80-110) mg/dL Hemoglobin A1c 6.5 H (4.0-6.0) % Lactate (0.7-2.1) mmol/L Calcium (8.4-10.2) mg/dL Magnesium 1.7 (1.6-2.3) mg/dL Total Bilirubin (0.2-1.3) mg/dL AST (17-59) IU/L ALT (<50) IU/L Alkaline Phosphatase (38-126) U/L NT-Pro-B Natriuret Pep 7170 H (<450) pg/mL Total Protein (6.3-8.2) g/dL Albumin (3.5-5.0) g/dL Globulin (1.7-4.1) g/dL Albumin/Globulin Ratio (1.0-2.8) Lipase (23-300) U/L Procalcitonin (<0.5) ng/mL Urine RBC (0-5/HPF) Urine WBC (0-5/HPF) Urine Bacteria (None) Urine Yeast (None) Ur Culture Indicated? SARS-CoV-2 (PCR) (Negative) Blood Type Antibody Screen Crossmatch 05/27/22 05/27/22 05/27/22 Range/Units 20:21 20:47 22:00 WBC (4.5-11.0) X10^3/uL RBC (4.5-5.9) X10^6/uL Hgb (13.5-17.5) g/dL Hct (41-53) % MCV (80-100) fL MCH (26-34) PG MCHC (30-36) % RDW (11.6-14.8) % Plt Count (150-400) X10^3/uL Neut % (Auto) (50-75) % Lymph % (Auto) (25-40) % [place] % (Auto) (3-14) % Eos % (Auto) (2-4) % Baso % (Auto) (0-2) % Neut # (Auto) (2528-3300) /uL Lymph # (Auto) (7479-1992) /uL [place] # (Auto) (0-900) /uL Eos # (Auto) (0-450) /uL Baso # (Auto) (0-100) /uL RBC Morphology Anisocytosis Sodium (137-145) mmol/L Potassium (3.4-5.1) mmol/L Chloride (98-107) mmol/L Carbon Dioxide (22-32) mmol/L BUN (9-20) mg/dL Creatinine (0.66-1.25) mg/dL Estimated GFR (>60) mL/min BUN/Creatinine Ratio (6-22) Glucose (80-110) mg/dL Hemoglobin A1c (4.0-6.0) % Lactate (0.7-2.1) mmol/L Calcium (8.4-10.2) mg/dL Magnesium (1.6-2.3) mg/dL Total Bilirubin (0.2-1.3) mg/dL AST (17-59) IU/L ALT (<50) IU/L Alkaline Phosphatase (38-126) U/L NT-Pro-B Natriuret Pep (<450) pg/mL Total Protein (6.3-8.2) g/dL Albumin (3.5-5.0) g/dL Globulin (1.7-4.1) g/dL Albumin/Globulin Ratio (1.0-2.8) Lipase (23-300) U/L Procalcitonin (<0.5) ng/mL Urine RBC 0-1/hpf (0-5/HPF) Urine WBC 30-100/hpf H (0-5/HPF) Urine Bacteria Few (2-10) H (None) Urine Yeast 30-100/hpf H (None) Ur Culture Indicated? Specimen cultured SARS-CoV-2 (PCR) Negative (Negative) Blood Type A Negative Antibody Screen Negative Crossmatch See Detail Urine Dip Bedside Urine Glucose 500 mg/dl Bedside Urine Bilirubin - Negative Bedside Urine Ketone - Negative Urine Specific [place] 1.02 Bedside Urine Occult Blood +/- Bedside Urine pH 5.5 Bedside Urine Protein - Negative Bedside Urine Urobilinogen - Negative Bedside Urine Nitrite - Negative Bedside Urine Leukocytes +/- 15 Esterase Point of care testing: Urine Dip Bedside Urine Glucose 500 mg/dl Bedside Urine Bilirubin - Negative Bedside Urine Ketone - Negative Urine Specific [place] 1.02 Bedside Urine Occult Blood +/- Bedside Urine pH 5.5 Bedside Urine Protein - Negative Bedside Urine Urobilinogen - Negative Bedside Urine Nitrite - Negative Bedside Urine Leukocytes +/- [address] scan - head: My Impression: FINDINGS:? Image quality:? Excellent.? ? CSF spaces:? Basal cisterns are patent.? No extra-axial fluid collections.? The ventricles are symmetric in size and shape.? ? Brain:? No intracranial bleeds or masses.? There is cerebral volume loss for age, with resultant ventricular and sulcal prominence.? There are mild periventricular and deep white matter chronic small vessel ischemic changes.? There is intracranial inte rnal carotid artery atherosclerosis.? ? Skull and face:? Calvarium and visualized facial bones appear intact, without suspicious lesions.? ? Sinuses:? Mucosal thickening and small fluid level in the left maxillary sinus.? Visualized sinuses and mastoids are otherwise clear.? ? IMPRESSION:? ? 1. No CT evidence of acute intracranial process.? ? 2. Age-appropriate cerebral cortical volume loss and chronic microvascular ischemic changes. ? ? 3. Acute on chronic appearing left maxillary sinus disease.? ? ? Dictated by: Brooklyn Guy M.D. on 05/27/2022 at 21:07 ? ? CT Left lower extremity: Radiologist's Impression: FINDINGS:? Image quality:? Excellent.? ? Bones:? No fractures.? Normal bone alignment.? There is chondrocalcinosis in volving the lateral compartment.? No suspicious periostitis. ? Soft tissues:? There are surgical clips in the medial leg.? In the medial leg, near the level of the knee joint, there is an irregular, slightly hyperdense, but non circumscribed subcutaneous mass measuring approximately 9.5 cm in craniocaudal dimension, 8.0 cm in AP diameter, and about 3.5 cm in thickness.? There is no extension into the underlying joint space.? There might be slight thickening of the superficial fascia of the vastus medialis muscle. ? There is a very small hypodense joint effusion present.? Mild to moderate ather osclerotic calcification is seen.? Mild circumferential soft tissue edema.? No significant skin thickening. ? ? IMPRESSION:? ? 1. Mildly hyperdense, irregular medial soft tissue mass without extension to the underlying joint.? This is likely a hematoma or contusion given lack of overlying cellulitis, but abscess is not entirely excluded. ? 2. No evidence of underlying osteomyelitis. ? 3. Very small nonspecific knee joint effusion.? Dictated by: Brooklyn Guy M.D. on 05/27/2022 at 21:10 ? ? ECG Data Interpretation: Sinus rhythm, left bundle-branch block, no acute ischemic changes, rate of 67 MDM Narrative Medical decision making narrative: Have spoken with his son and medical records are now available for review. Patient was discharged from [facility] for acute congestive heart failure on May 07. Acute on chronic combined biventricular failure with left ventricular ejection fraction at 15% with volume overload and tachycardia. He underwent PCI of the distal right coronary artery, had a transesophageal echocardiogram and cardioversion for atrial fibrillation. Was discharged home to his son's house on aspirin, clopidogrel, metoprolol succinate 50 mg, spironolactone 25 mg, torsemide 20 mg, Jardiance, lisinopril 2.5 mg, Xarelto 15 mg, allopurinol, amiodarone 200 mg, atorvastatin 40 mg, duloxetine 30 mg, ferrous gluconate 324 mg, glargine insulin, metformin, omeprazole, Mirapex 0.125 mg nightly and as needed nitroglycerin. He was admitted at [facility] from [id number] with decompensated heart failure He was admitted at [facility] on May 11 through May 14 for elective heart catheterization and had PCI of the distal right coronary artery and also found to have heart failure, paroxysmal atrial fibrillation, coronary disease, diabetes. With this admission he was noted to be ?a bright adult elderly gentleman? he was seen at [facility] on May 24 and with a ground level fall injuring his left knee that had occurred on or about May 21. On the he had a CT scan that showed hematoma but no fractures his anticoagulation was discontinued reportedly no fevers chills new new injury or fall. He was seen the following day with complaints of increasing pain. Physical exam describes him as alert and oriented x3 no acute distress. ER note says that a fiberglass long-leg posterior splint was applied on arrival in the emergency department he has a piece of fiberglass casting material extending from the medial malleolus to the distal knee, not crossing any joint and causing significant irritation superiorly and inferiorly. Was discharged with pain control instructions to remove the splint in 2-3 days. His son noted him to be increasingly weak this morning and he comes in hypotensive found to be significantly anemic, presumably secondary to blood loss into they large hematoma on the medial aspect of the left knee. He does not have a significantly elevated white blood cell count. He does have significant skin irritation inferiorly am concerned that the medial hematoma may be infected any also has skin irritation and developing cellulitis in the left forearm with dressings that appear to been in place for a number of days and unchanged and unchecked. Initial concern was for sepsis and he was given Zosyn and vancomycin. As labs return he is found to be dramatically anemic with acute kidney injury with creatinine change from 1.63 on May 11 to a creatinine of 3.[address] of the a lower extremity in knee shows a large irregular medial soft tissue mass without extension to the underlying joint that clinically appears to be a hematoma and likely the source of acute blood loss In the absence of fever, leukocytosis, elevated lactic acid and alternative explanation for hypotension given his significant bleeding into the left knee and acute blood loss I do not believe this is sepsis. I have begun transfusion of 2 units of packed blood cells and he has responded nicely to the volume. Will give him 80 mg of IV Lasix given his increased creatinine and usual oral dose of 20 mg. At this time his blood pressure has come up nicely, he is not complaining of dyspnea, chest pain appears to be more alert not complaining of knee pain and I believe will be appropriate for admission to [facility]. I suspect the acute kidney injury is from volume loss is secondary to the blood loss. He will need close management of his congestive heart failure as well as marriage and family social worker to make sure that home discharge is safe. He does of his son his son is involved in his care. Will benefit from orthopedic consultation for recommendations on management of the left knee external hematoma without intra- articular involvement. Discussed with Nadira Ching, hospitalist. Will admit. Critical Care Time Critical Care Time Critical Care Time: Yes Total Critical Care Time: 36 Attestation: Critical care time is separate from other billable procedures. There is a high probability of a significant, sudden or life-threatening deterioration that requires my full and direct attention, intervention and personal management. This critical care time includes consultation with family and other consulting doctors, review of records, and interpretation of data from labs, EKGs and imaging as well as managements of altered mental status, concern for severe sepsis, congestive heart failure and acute blood loss. Discharge Plan Departure Patient Disposition: Admitted As Inpatient Clinical Impression: ABLA (acute blood loss anemia), Hematoma of left knee region, Acute CHF, Acute alteration in mental status, Acute kidney injury Admit Date/Time: 05/28/22 00:50 Admit Provider: Vianca Ching
--- NOTE | 2022-05-27 19:52 | DI.RAD.S_ITS ---
PROCEDURE: XR CHEST 1V INDICATIONS: suspected sepsis TECHNIQUE: One view of the chest was acquired. COMPARISON: [facility], CR, XR CHEST 1V, 01/24/2019, 11:32. FINDINGS: Surgical changes and devices: Median sternotomy and CABG changes. Overlying monitoring wires. Lungs and pleura: Slight blunting of the right lateral costophrenic sulcus. Lungs are otherwise clear. Mediastinum: Mild cardiomegaly. No central venous congestion. Bones and chest wall: No suspicious bony lesions. Overlying soft tissues appear unremarkable. IMPRESSION: 1. Slight right lateral costophrenic sulcus blunting may indicate small right effusion and/or atelectasis. Underlying infection cannot be excluded. 2. Mild cardiomegaly without radiographic findings of CHF. Dictated by: Brooklyn Guy M.D. on 05/27/2022 at 20:13 Approved by: Brooklyn Guy M.D. on 05/27/2022 at 20:15
[2022-05-27 20:02] LABS: Add Manual Diff / Slide Review NO; Basophils Absolute Auto 100 /uL (0-100); Eosinophils Absolute Auto 200 /uL (0-450); Eosinophils Percent Auto 2.8 % (2-4); Lymphocytes Absolute Auto 800 /uL (1100-4500); Lymphocytes Percent Auto 11.4 % (25-40); Mean Corpuscular HGB Conc 32.4 % (30-36); Mean Corpuscular Hemoglobin 24.6 PG (26-34); Mean Corpuscular Volume 75.7 fL (80-100); Monocytes Absolute Auto 700 /uL (0-900); Monocytes Percent Auto 9.8 % (3-14); Neutrophils Absolute Auto 5400 /uL (1500-7000); Platelet Count 206 X10^3/uL (150-400); Red Blood Cell Count 2.75 X10^6/uL (4.5-5.9); Red Cell Distribution Width 24.5 % (11.6-14.8); White Blood Cell Count 7.1 X10^3/uL (4.5-11.0)
[2022-05-27 20:04] LABS: Lactate (Lactic Acid) 1.3 mmol/L (0.7-2.1)
[2022-05-27 20:05] LABS: Alanine Aminotransferase 27 IU/L (<50); Albumin 3.6 g/dL (3.5-5.0); Alkaline Phosphatase 170 U/L (38-126); Aspartate Aminotransferase 28 IU/L (17-59); BUN Creatinine Ratio 19.2 (6-22); Bilirubin Total 1.5 mg/dL (0.2-1.3); Blood Urea Nitrogen 61 mg/dL (9-20); Calcium 8.4 mg/dL (8.4-10.2); Carbon Dioxide 27 mmol/L (22-32); Chloride 97 mmol/L (98-107); Estimated Glomerular Filt Rate 19 mL/min (>60); Globulin 3.5 g/dL (1.7-4.1); Glucose 130 mg/dL (80-110); HEMOLYSIS < 15 (0-50); Lipase 135 U/L (23-300); Potassium 4.3 mmol/L (3.4-5.1); Sodium 132 mmol/L (137-145); Total Protein 7.1 g/dL (6.3-8.2)
[2022-05-27 20:06] LABS: Hematocrit 20.8 % (41-53); Hemoglobin 6.7 g/dL (13.5-17.5)
--- NOTE | 2022-05-27 20:07 | DI.CT.S_ITS ---
PROCEDURE: CT LE LT W CON INDICATIONS: hemarthrosis, sepsis TECHNIQUE: Noncontrast 1-1.5 mm axial sections acquired from the mid-patella to the proximal tibia, with coronal and sagittal reformats. COMPARISON: None. FINDINGS: Image quality: Excellent. Bones: No fractures. Normal bone alignment. There is chondrocalcinosis involving the lateral compartment. No suspicious periostitis. Soft tissues: There are surgical clips in the medial leg. In the medial leg, near the level of the knee joint, there is an irregular, slightly hyperdense, but non circumscribed subcutaneous mass measuring approximately 9.5 cm in craniocaudal dimension, 8.0 cm in AP diameter, and about 3.5 cm in thickness. There is no extension into the underlying joint space. There might be slight thickening of the superficial fascia of the vastus medialis muscle. There is a very small hypodense joint effusion present. Mild to moderate atherosclerotic calcification is seen. Mild circumferential soft tissue edema. No significant skin thickening. IMPRESSION: 1. Mildly hyperdense, irregular medial soft tissue mass without extension to the underlying joint. This is likely a hematoma or contusion given lack of overlying cellulitis, but abscess is not entirely excluded. 2. No evidence of underlying osteomyelitis. 3. Very small nonspecific knee joint effusion. Dictated by: Brooklyn Guy M.D. on 05/27/2022 at 21:10 Approved by: Brooklyn Guy M.D. on 05/27/2022 at 21:17
--- NOTE | 2022-05-27 20:09 | DI.CT.S_ITS ---
PROCEDURE: CT HEAD/BRAIN WO CON INDICATIONS: altered mental status TECHNIQUE: Noncontrast 4.5 mm thick angled axial sections acquired from the foramen magnum to the vertex, with coronal and sagittal reformats. For radiation dose reduction, the following was used: automated exposure control, adjustment of mA and/or kV according to patient size. COMPARISON: [facility], CT, CT HEAD/BRAIN WO CON, 01/24/2019, 11:11. FINDINGS: Image quality: Excellent. CSF spaces: Basal cisterns are patent. No extra-axial fluid collections. The ventricles are symmetric in size and shape. Brain: No intracranial bleeds or masses. There is cerebral volume loss for age, with resultant ventricular and sulcal prominence. There are mild periventricular and deep white matter chronic small vessel ischemic changes. There is intracranial internal carotid artery atherosclerosis. Skull and face: Calvarium and visualized facial bones appear intact, without suspicious lesions. Sinuses: Mucosal thickening and small fluid level in the left maxillary sinus. Visualized sinuses and mastoids are otherwise clear. IMPRESSION: 1. No CT evidence of acute intracranial process. 2. Age-appropriate cerebral cortical volume loss and chronic microvascular ischemic changes. 3. Acute on chronic appearing left maxillary sinus disease. Dictated by: Brooklyn Guy M.D. on 05/27/2022 at 21:07 Approved by: Brooklyn Guy M.D. on 05/27/2022 at 21:09
[2022-05-27 20:28] LABS: Anisocytosis 3+
[2022-05-27] MEDS: PIPERACILLIN/TAZO 4.5 GM in SODIUM CHLORIDE 0.9% 100 ML IV (20:35)
[2022-05-27] MEDS: SODIUM CHLORIDE 0.9% 1,000 ML 1000 ML IV ×2 (20:35→20:36)
--- NOTE | 2022-05-27 21:00 | PC.NURSE ---
spoke with pt's son and obtained more PMH on pt, son gave permission for transfusion and stated pt would want it, upon hanging the 1st unit of blood explained to pt I was giving him some blood because his blood count was low, pt verbalized ok but is unable to sign at this time
[2022-05-27 21:09] LABS: COVID19 -Nasal RAPID Negative (Negative)
[2022-05-27] MEDS: VANCOMYCIN 1,500 MG/300 ML PIGGYBACK 200 MG IV (21:32)
--- NOTE | 2022-05-27 23:53 | PC.NURSE ---
2nd unit infused pt tolerated well no complication
[2022-05-28] VITALS (15 sets, daily range): BP systolic 95–147; BP diastolic 34–63; PULSE 58–72; RESP 12–22; TEMP 36.1–36.7; O2SAT 96–100; BMI 33.4
[2022-05-28] MEDS: FUROSEMIDE 100 MG/10 ML VIAL 80 MG IV (00:28)
[2022-05-28 01:42] LABS: Magnesium 1.7 mg/dL (1.6-2.3)
[2022-05-28 01:45] LABS: Hemoglobin A1C% w Est Avg Glu 6.5 % (4.0-6.0)
[2022-05-28 01:58] LABS: Hematocrit 24.5 % (41-53); Hemoglobin 7.9 g/dL (13.5-17.5)
--- NOTE | 2022-05-28 02:59 | P.HP_ITS ---
History of Present Illness History of Present Illness Date Patient Seen: 05/28/22 Time Patient Seen: 02:35 Chief complaint: Dementia Narrative: Kenneth De Guzman is a 77-year-old male status post CABG approximately 20 years ago, coronary artery disease, recent biventricular PCTA, gini, cardioversion, diabetes type 2 and a remote history of B-cell lymphoma, was staying with his son and daughter in-law called EMS due to the patient declining per the ED triage note. Patient does not remember the details of what brought him here, thought he was readmitted to [facility]. He does not understand why he has here [place] but has no problems being here. He stated that he does remember falling and he thinks he passed out. He was allegedly nonresponsive likely to the son and paramedics which precipitated bringing him here. Patient has a history of heart failure with reduced ejection fraction and has had a recent and complicated cardiac history. He states that when he fell, he felt lightheaded and then does not remember anything out after that. He did endorse being short of breath but denied chest pain. He states that his diabetes seems to be under pretty good control in thought his A1c was less than 8. He denies nausea or vomiting, dysuria diarrhea or constipation he does state positive to having numbing of his hands and feet. Review of outside medical records. On May 25 the patient presented to the emergency department after injuring his right knee seemingly occurred about May 21 or . His anticoagulation had been stopped and he had at hematoma but no fracture. They applied a posterior splint to immobilize his left leg and was to have removed it in 2-3 days. He was discharged with 14 oxycodone. When he presented to this emergency room the splint was found to have actually lodged into his medial calf with some skin peeling surrounding the hematoma. He also had a number of dressings on his right arm. He states that these were all due to his falls. Today, when he presented to the this emergency department he was found to be profoundly anemic with a hemoglobin and hematocrit of 6.7 and 20.8 respectively and was administered 2 units PRBC. It was determined that patient is likely bled into the large hematoma. He was very hypotensive when he came in, was concerning for sepsis and was given fluid resuscitation in addition to IV Zosyn and vancomycin. He also presented with an acute kidney injury with a creatinine of 3.18 up from 1.63 in May. They did a repeat of the CT which reported a large irregular medial soft tissue mass without extension into the underlying joint, presumably hematoma and likely the source of the acute blood loss. After the blood pressure transfusion the patient was administered IV Lasix 80 mg in addition to his normal prescribed dose of 20 mg p.o. per the emergency provider, the patient's blood pressure improved and he became a lot more alert and oriented and was requested for admission to the medical floor. He is afebrile, blood pressure 108/46, heart rate 58, respiratory rate 12, oxygen saturation of 100% on room air he weighs 94 kg with a BMI of 33.4. Currently his hemoglobin and hematocrit was improved to 7.9 in 24.5 respectively, platelet count is 206, sodium 132 chloride 97 BUN 61 creatinine 3.18 with an EGFR of 19 glucose 130 hemoglobin A1c is 6.5 total bilirubin 1.5 alk phos 170 proBNP 7170 procalcitonin is negative UA is positive for wbc's urine bacteria and apparently yeast and meets criteria for culture. COVID-19 PCR is negative, blood type is A negative. Patient has a remote history of undergoing a CABG he states about 20 years ago. He was admitted at [facility] from 04/30-05/04 with decompensated heart failure. He was subsequently seen in the heart failure clinic and admitted on on January 05 for an elective right left heart catheterization, undergoing a complex PCI of the distal RCA. At that time he was very short of breath, dyspneic orthopneic and unable to lay flat. He became tachycardic developing a narrow complex rhythm and was giving adenosine and at that time revealing underlying AFib. He ended up staying longer to manage his atrial fibrillation in the hospital service at [facility]. Patient was discharged from [facility] for acute congestive heart failure on May 07 for acute on ch ronic combined biventricular failure with left ventricular ejection fraction at 15% with volume overload and tachycardia.? He underwent PCI of the distal right coronary artery, had a transesophageal echocardiogram and cardioversion for atrial fibrillation.? He was discharged home to his son's home. He appeared to be resumed on his home medications of aspirin, clopidogrel, metoprolol succinate 50 mg, spironolactone 25 mg, torsemide 20 mg, Jardiance, lisinopril 2.5 mg, Xarelto 15 mg, allopurinol, amiodarone 200 mg, atorvastatin 40 mg, duloxetine 30 mg, ferrous gluconate 324 mg, glargine insulin, metformin, omeprazole, Mirapex 0.125 mg nightly and as needed nitroglycerin. FH: non available, patient states he is adopted. Patient History Medical History Anticoagulated Atrial fibrillation Coronary artery disease Diabetes Dyslipidemia Hypertension Sleep apnea Surgical History (Updated 05/28/22 @ 04:28 by WILTON Blair) Hx of cholecystectomy S/P CABG x 4 S/P TAVR (transcatheter aortic valve replacement) Family & Social History Family History (Updated 05/28/22 @ 04:05 by WILTON Blair) Other Adopted Family history unavailable: Yes Social History: household members significant other Prior Living Arrangements House Safety & Behavioral: Feels Safe in Current Yes Environment Been Physically Hurt or No Threatened By a Person Tobacco & Substance use: Smoking Status Former smoker alcohol intake frequency holiday/special occasion Substance Use Type does not use Meds Home Medications and Allergies Home Medications Medication Instructions Recorded Confirmed Type Metformin Hydrochloride 1,275 mg PO BID ##0 11/06/12 History (GLUCOPHAGE) VITAMIN D (Vitamin D3) ##0 11/06/12 History aspirin 81 mg chewable tablet 81 mg PO QDAY ##0 11/06/12 03/15/20 History hydrochlorothiazide 25 mg tablet 50 mg PO QDAY ##0 11/06/12 History insulin glargine 100 unit/mL 100 unit SQ DAILY ##0 11/06/12 03/15/20 History subcutaneous solution (Lantus U-100 Insulin) lisinopril 20 mg tablet 10 mg PO QDAY ##0 11/06/12 03/15/20 History omeprazole 40 mg capsule,delayed 40 mg PO DAILY ##0 11/06/12 03/15/20 History release testosterone cypionate 200 mg/mL ##0 11/06/12 History intramuscular oil (Depo-Testosterone) rivaroxaban 20 mg tablet (Xarelto) 20 mg PO DAILY 03/14/20 03/14/20 History allopurinol 100 mg tablet 100 mg PO BID 03/15/20 03/15/20 History atorvastatin 20 mg tablet 20 mg PO DAILY 03/15/20 03/15/20 History carbidopa 25 mg-levodopa 100 mg 1 tab PO BEDTIME RLS 03/15/20 03/15/20 History tablet carvedilol 12.5 mg tablet 12.5 mg PO BID 03/15/20 03/15/20 History cyclobenzaprine 10 mg tablet 10 mg PO TID 03/15/20 03/15/20 History oxycodone 10 mg tablet,crush 10 mg PO BID 03/15/20 03/15/20 History resistant,extended release 12 hr semaglutide 0.25 mg or 0.5 mg (2 0.25 mg SUBCUT QWEEK 03/15/20 03/15/20 History mg/1.5 mL) subcutaneous pen injector (Ozempic) sildenafil 100 mg tablet 100 mg PO DAILY PRN Sexual Activity 03/15/20 03/15/20 History Allergies Allergy/AdvReac Type Severity Reaction Status Date / Time ferrous sulfate Allergy Muscle Pain Verified 03/14/20 20:28 gabapentin Allergy Confusion Verified 03/14/20 20:28 zolpidem [From Ambien] Allergy Confusion Verified 03/14/20 20:28 NSAIDS (Non-Steroidal AdvReac Severe kidney Verified 03/14/20 20:28 Anti-Inflamma disease Review of Systems Review of Systems ROS: Yes All systems reviewed with the patient and are negative except as otherwise documented Exam Vital Signs (past 8 hours): - 05/27/22 19:44 05/27/22 20:34 05/27/22 21:25 Temperature 97.7 F 96.8 F L Pulse Rate 65 65 64 Respiratory Rate 21 17 17 Blood Pressure 78/54 L 102/52 L Pulse Oximetry 97 98 Oxygen Delivery Method Room Air Oxygen Flow Rate 05/27/22 21:30 05/27/22 21:45 05/27/22 20:41 Temperature 96.7 F L 96.5 F L Pulse Rate 64 64 65 Respiratory Rate 18 14 21 Blood Pressure 98/52 L 95/54 L 95/50 L Pulse Oximetry 98 Oxygen Delivery Method Oxygen Flow Rate 05/27/22 21:00 05/27/22 22:35 05/27/22 22:50 Temperature 96.3 F L 96.8 F L Pulse Rate 64 62 62 Respiratory Rate 20 12 18 Blood Pressure 94/46 L 95/55 L 98/52 L Pulse Oximetry 99 Oxygen Delivery Method Oxygen Flow Rate 05/27/22 22:51 05/27/22 23:04 05/27/22 23:07 Temperature 98.6 F 96.8 F L 96.7 F L Pulse Rate 63 63 62 Respiratory Rate 18 15 18 Blood Pressure 98/52 L 97/52 L 102/53 L Pulse Oximetry Oxygen Delivery Method Oxygen Flow Rate 05/27/22 21:25 05/27/22 21:25 05/27/22 21:30 Temperature Pulse Rate 64 Respiratory Rate 17 Blood Pressure 102/52 L 98/52 L Pulse Oximetry 99 Oxygen Delivery Method Oxygen Flow Rate 05/27/22 21:30 05/27/22 21:45 05/27/22 21:45 Temperature Pulse Rate 64 64 Respiratory Rate 19 16 Blood Pressure 95/54 L Pulse Oximetry 100 100 Oxygen Delivery Method Oxygen Flow Rate 05/27/22 22:00 05/27/22 22:00 05/27/22 22:15 Temperature Pulse Rate 63 Respiratory Rate 15 Blood Pressure 90/50 L 92/51 L Pulse Oximetry 100 Oxygen Delivery Method Oxygen Flow Rate 05/27/22 22:15 05/27/22 22:30 05/27/22 22:30 Temperature Pulse Rate 64 63 Respiratory Rate 20 24 Blood Pressure 95/53 L Pulse Oximetry 100 99 Oxygen Delivery Method Oxygen Flow Rate 05/27/22 22:36 05/27/22 22:36 05/27/22 22:45 Temperature Pulse Rate 62 62 Respiratory Rate 14 13 Blood Pressure 95/55 L Pulse Oximetry 100 99 Oxygen Delivery Method Oxygen Flow Rate 05/27/22 22:45 05/27/22 23:00 05/27/22 23:01 Temperature Pulse Rate 64 64 Respiratory Rate 20 21 Blood Pressure 98/52 L Pulse Oximetry 97 99 Oxygen Delivery Method Oxygen Flow Rate 05/27/22 23:01 05/27/22 23:15 05/27/22 23:15 Temperature Pulse Rate 63 Respiratory Rate 21 Blood Pressure 97/52 L 101/54 L Pulse Oximetry 97 Oxygen Delivery Method Oxygen Flow Rate 05/27/22 23:30 05/27/22 23:30 05/27/22 23:45 Temperature Pulse Rate 61 62 Respiratory Rate 20 26 H Blood Pressure 96/53 L Pulse Oximetry 89 L 98 Oxygen Delivery Method Oxygen Flow Rate 05/27/22 23:45 05/28/22 00:00 05/28/22 00:00 Temperature Pulse Rate 60 Respiratory Rate 21 Blood Pressure 102/53 L 109/57 L Pulse Oximetry 99 Oxygen Delivery Method Oxygen Flow Rate 05/28/22 00:15 05/28/22 00:15 05/28/22 00:30 Temperature Pulse Rate 61 Respiratory Rate 19 Blood Pressure 101/52 L 95/54 L Pulse Oximetry 100 Oxygen Delivery Method Oxygen Flow Rate 05/28/22 00:30 05/28/22 00:45 05/28/22 00:45 Temperature Pulse Rate 61 61 Respiratory Rate 17 19 Blood Pressure 103/52 L Pulse Oximetry 100 100 Oxygen Delivery Method Oxygen Flow Rate 05/28/22 01:00 05/28/22 01:01 05/28/22 01:01 Temperature Pulse Rate 62 61 Respiratory Rate 22 18 Blood Pressure 101/57 L Pulse Oximetry 100 100 Oxygen Delivery Method Oxygen Flow Rate 05/28/22 01:35 Temperature 98.1 F Pulse Rate 58 L Respiratory Rate 12 Blood Pressure 108/46 L Pulse Oximetry 100 Oxygen Delivery Method Oxygen Flow Rate 0 Oxygen Delivery Method Room Air Oxygen Flow Rate 0 Narrative Exam Narrative: Gen: Alert, oriented, well-nourished 77 y.o. male, NAD HEENT: normocephalic, atraumatic, conjunctiva clear, sclera non-icteric, oral mucosa pink and moist Neck: supple, full ROM, no JVD, trachea is midline Resp: Lungs CTA, non-labored breathing CV: RRR, no murmur or rubs Abd: soft, non-tender, normoactive BTs Skin: Multiple bruises on his right and left arm right worse than left. He has a very large hematoma in the medial knee joint area, it is very swollen but not draining actively Neuro: Alert and oriented X 4 w/no focal deficits. Speech clear and coherent. Extremities: moves all 4 extremities, is ambulatory, negative Donte?s sign Psyche: normal mood and affect. Objective Labs Result Diagrams: 05/28/22 01:37 05/27/22 19:40 Labs: Laboratory Results - last 24 hr 05/27/22 05/27/22 05/27/22 19:40 19:40 19:40 WBC 7.1 RBC 2.75 L Hgb 6.7 L* Hct 20.8 L* MCV 75.7 L MCH 24.6 L MCHC 32.4 RDW 24.5 H Plt Count 206 Neut % (Auto) 75.0 Lymph % (Auto) 11.4 L De[place] % (Auto) 9.8 Eos % (Auto) 2.8 Baso % (Auto) 1.0 Neut # (Auto) 5400 Lymph # (Auto) 800 L Deuel # (Auto) 700 Eos # (Auto) 200 Baso # (Auto) 100 RBC Morphology Not Reportable Anisocytosis 3+ H Sodium 132 L Potassium 4.3 Chloride 97 L Carbon Dioxide 27 BUN 61 H Creatinine 3.18 H Estimated GFR 19 L BUN/Creatinine Ratio 19.2 Glucose 130 H Hemoglobin A1c Lactate 1.3 Calcium 8.4 Magnesium Total Bilirubin 1.5 H AST 28 ALT 27 Alkaline Phosphatase 170 H Total Protein 7.1 Albumin 3.6 Globulin 3.5 Albumin/Globulin Ratio 1.0 Lipase 135 Procalcitonin 0.50 SARS-CoV-2 (PCR) Blood Type Antibody Screen Crossmatch 05/27/22 05/27/22 05/27/22 19:40 19:40 20:21 WBC RBC Hgb Hct MCV MCH MCHC RDW Plt Count Neut % (Auto) Lymph % (Auto) Deuel % (Auto) Eos % (Auto) Baso % (Auto) Neut # (Auto) Lymph # (Auto) Deuel # (Auto) Eos # (Auto) Baso # (Auto) RBC Morphology Anisocytosis Sodium Potassium Chloride Carbon Dioxide BUN Creatinine Estimated GFR BUN/Creatinine Ratio Glucose Hemoglobin A1c 6.5 H Lactate Calcium Magnesium 1.7 Total Bilirubin AST ALT Alkaline Phosphatase Total Protein Albumin Globulin Albumin/Globulin Ratio Lipase Procalcitonin SARS-CoV-2 (PCR) Blood Type A Negative Antibody Screen Negative Crossmatch See Detail 05/27/22 05/28/22 20:47 01:37 WBC RBC Hgb 7.9 L Hct 24.5 L MCV MCH MCHC RDW Plt Count Neut % (Auto) Lymph % (Auto) Deuel % (Auto) Eos % (Auto) Baso % (Auto) Neut # (Auto) Lymph # (Auto) Deuel # (Auto) Eos # (Auto) Baso # (Auto) RBC Morphology Anisocytosis Sodium Potassium Chloride Carbon Dioxide BUN Creatinine Estimated GFR BUN/Creatinine Ratio Glucose Hemoglobin A1c Lactate Calcium Magnesium Total Bilirubin AST ALT Alkaline Phosphatase Total Protein Albumin Globulin Albumin/Globulin Ratio Lipase Procalcitonin SARS-CoV-2 (PCR) Negative Blood Type Antibody Screen Crossmatch Assessment & Plan Assessment & Plan narrative: Kenneth De Guzman will be admitted for further management of acute blood loss anemia, acute kidney injury, and acute exacerbation of heart failure with reduced ejection fraction. Acute blood loss anemia likely secondary to over coagulation with what appears to be triple anti-platelet therapy, present on admission * Patient's rivaroxaban, aspirin and clopidogrel are being held * Patient received 2 units PRBC in the emergency department increasing his H&H from 6.7-7.9 and 20.8-24.5 respectively * He received IV Lasix 80 mg in addition to his home oral dose of 20 mg * Recheck CBC in the morning Acute kidney injury likely secondary to blood loss anemia, present on admission * Patient was fluid resuscitated in the emergency department 2 L * He is currently saline lock due to volume overload * Closely monitor renal function and hold nephrotoxic medications (Lisinopril) Acute decompensated heart failure with reduced ejection fraction, present on admission * Patient's proBNP is almost 7200 * Patient is currently recovering from biventricular heart catheterization * Will need to contact his cork sorter in the to advise of his admission * Continue carvedilol 25 mg p.o. b.i.d., patient receives in 12.5 mg tablets Probable left knee cellulitis, acute, present on admission * Patient was initially administered IV vancomycin and Zosyn but will be initiated on IV ceftriaxone * Orthopedic surgery has been consulted and will see the patient in the morning Coronary artery disease, chronic * Continue home dose of atorvastatin 40 mg p.o. at bedtime Diabetes type 2, appears to be well controlled * Today's A1c is 6.5 * He will receive his home dose of Lantus 30 units b.i.d. * Low-dose correctional scale insulin and adjust as needed * Carb controlled diet with a.c. HS glucose checks VTE Prophylaxis: Wells risk score 1.5. Pharmacological VTE prophylaxis is contraindicated in the setting of active bleeding [X] right sidedl SCD Patient is currently anticoagulated on rivaroxaban Patient is admitted to the inpatient service due to the severity of disease, risks of further disease progression and this stay is expected to exceed 2 midnights. FEN: IV fluids: saline lock, diet: carb controlled diet, labs: CBC, C/BMP, liver enzymes, Mag, PT/INR Consultants Dr. Guerrero Orthopedic Surgery, care and involvement in the patient?s care is appreciated. Dispo: Unknown at this time Code status: Full code as discussed with the patient who identifies his son, Talon his surrogate and POA. [X] I have utilized all available immediate resources to obtain, update, or review of the patient's current medications COVID-19 COVID-19 status: Negative Result date/Date tested (Pos, Neg/Pending): 05/28/22 Time Spent With Patient Critical Care time: I spent a total of [] minutes of critical care time on this patient's care today; this time is exclusive of procedural time. Scores Wells' Criteria for PE Clinical signs and symptoms of DVT: No PE is #1 Dx or equally likely: No Heart rate > 100: No Immobilization at least 3 days or surg in previous 4 weeks: Yes History of PE or DVT: No Hemoptysis: No Malignancy w/Treatment within 6 months or palliative: No Wells' PE Score total: 1.5 Quality VTE Deep Vein Thrombosis/Pulmonary Embolism Present on Admission: No MIPS - Admit I confirm the patient?s Advance Care Plan is present, Code status is documented, Surrogate decision maker is in patient?s record [If Yes, STOP here]: Yes MIPS - DC The patient has current or prior documentation of left ventricular ejection fraction (LVEF) less than 40%, or moderate or severely depressed left ventricular systolic function.: Yes A. The patient was prescribed or already taking an Angiotensin-Converting Enzyme (MICH) Inhibitor, or Angiotensin Receptor Loretta (ARB).: Yes B. The patient was prescribed or already taking a beta-loretta. [If Yes to Both A & B, STOP here]: Yes
[2022-05-28 03:09] LABS: Bacteria Urine Few (2-10); RBC Urine 0-1/HPF (0-5/HPF); WBC Urine 30-100/HPF (0-5/HPF)
[2022-05-28 03:10] LABS: Culture Indicated Urine Specimen Cultured
[2022-05-28 03:24] LABS: NT-proBNP (BNP-Adult 18+) 7170 pg/mL (<450)
[2022-05-28 05:09] LABS: INR 1.2 (0.9-1.3)
[2022-05-28 05:12] LABS: Magnesium 1.5 mg/dL (1.6-2.3)
--- NOTE | 2022-05-28 05:17 | PC.NURSE ---
Pt is AxOx4, may need 1-2 person assistance; Pt stated that he uses his walker and able to get around in the house. VSS, except BP slightly soft this morning systolic is high 90s. Pt denies pain. Pt has lots of skin issues. Dressing on coccyx and L arm applied. Wound consult ordered. pt has tele and it shows sinus teo with BBB. BG-130 in ED. Pt slept well. Continue monitor.
[2022-05-28 05:31] LABS: Prothrombin Time 14.1 SECONDS (10.1-12.7)
[2022-05-28 06:57] LABS: Add Manual Diff / Slide Review NO; Basophils Absolute Auto 0 /uL (0-100); Basophils Percent Auto 0.7 % (0-2); Eosinophils Absolute Auto 200 /uL (0-450); Eosinophils Percent Auto 2.8 % (2-4); Hematocrit 24.9 % (41-53); Hemoglobin 8.2 g/dL (13.5-17.5); Lymphocytes Absolute Auto 600 /uL (1100-4500); Lymphocytes Percent Auto 9.9 % (25-40); Mean Corpuscular HGB Conc 32.9 % (30-36); Mean Corpuscular Hemoglobin 25.9 PG (26-34); Mean Corpuscular Volume 78.6 fL (80-100); Monocytes Absolute Auto 500 /uL (0-900); Monocytes Percent Auto 8.4 % (3-14); Neutrophils Absolute Auto 4600 /uL (1500-7000); Neutrophils Percent Auto 78.2 % (50-75); Platelet Count 164 X10^3/uL (150-400); Red Blood Cell Count 3.16 X10^6/uL (4.5-5.9); Red Cell Distribution Width 23.2 % (11.6-14.8); White Blood Cell Count 5.9 X10^3/uL (4.5-11.0)
[2022-05-28 07:02] LABS: Alanine Aminotransferase 23 IU/L (<50); Albumin Globulin Ratio 0.9 (1.0-2.8); Alkaline Phosphatase 144 U/L (38-126); Aspartate Aminotransferase 30 IU/L (17-59); BUN Creatinine Ratio 22.5 (6-22); Bilirubin Total 2.6 mg/dL (0.2-1.3); Blood Urea Nitrogen 60 mg/dL (9-20); Carbon Dioxide 25 mmol/L (22-32); Chloride 100 mmol/L (98-107); Estimated Glomerular Filt Rate 24 mL/min (>60); Globulin 3.4 g/dL (1.7-4.1); Glucose 133 mg/dL (80-110); HEMOLYSIS 24 (0-50); Potassium 4.1 mmol/L (3.4-5.1); Sodium 134 mmol/L (137-145); Total Protein 6.4 g/dL (6.3-8.2)
[2022-05-28 07:24] LABS: Anisocytosis 2+; Poikilocytosis 1+
--- NOTE | 2022-05-28 07:51 | P.CONS_ITS ---
History of Present Illness Consult details Date Patient Seen: 05/28/22 Time Patient Seen: 07:35 Chief complaint: Dementia Reason for consult: Left knee subcutaneous hematoma Narrative: The patient is a 77-year-old man who was recently seen at [facility] for swelling on the medial aspect of his knee. For unclear reasons he was placed in a posterior short-leg splint. He was returned to the [facility] emergency room last night and admitted for significant swelling along the medial knee. He reportedly is on Xarelto at baseline. Orthopedic consultation has been obtained to evaluate the hematoma and overlying skin. Meds Home Medications and Allergies Home Medications Medication Instructions Recorded Confirmed Type Metformin Hydrochloride 1,275 mg PO BID ##0 11/06/12 History (GLUCOPHAGE) VITAMIN D (Vitamin D3) ##0 11/06/12 History aspirin 81 mg chewable tablet 81 mg PO QDAY ##0 11/06/12 03/15/20 History hydrochlorothiazide 25 mg tablet 50 mg PO QDAY ##0 11/06/12 History insulin glargine 100 unit/mL 100 unit SQ DAILY ##0 11/06/12 03/15/20 History subcutaneous solution (Lantus U-100 Insulin) lisinopril 20 mg tablet 10 mg PO QDAY ##0 11/06/12 03/15/20 History omeprazole 40 mg capsule,delayed 40 mg PO DAILY ##0 11/06/12 03/15/20 History release testosterone cypionate 200 mg/mL ##0 11/06/12 History intramuscular oil (Depo-Testosterone) rivaroxaban 20 mg tablet (Xarelto) 20 mg PO DAILY 03/14/20 03/14/20 History allopurinol 100 mg tablet 100 mg PO BID 03/15/20 03/15/20 History atorvastatin 20 mg tablet 20 mg PO DAILY 03/15/20 03/15/20 History carbidopa 25 mg-levodopa 100 mg 1 tab PO BEDTIME RLS 03/15/20 03/15/20 History tablet carvedilol 12.5 mg tablet 12.5 mg PO BID 03/15/20 03/15/20 History cyclobenzaprine 10 mg tablet 10 mg PO TID 03/15/20 03/15/20 History oxycodone 10 mg tablet,crush 10 mg PO BID 03/15/20 03/15/20 History resistant,extended release 12 hr semaglutide 0.25 mg or 0.5 mg (2 0.25 mg SUBCUT QWEEK 03/15/20 03/15/20 History mg/1.5 mL) subcutaneous pen injector (OzTigerstripe) sildenafil 100 mg tablet 100 mg PO DAILY PRN Sexual Activity 03/15/20 03/15/20 History Allergies Allergy/AdvReac Type Severity Reaction Status Date / Time ferrous sulfate Allergy Muscle Pain Verified 03/14/20 20:28 gabapentin Allergy Confusion Verified 03/14/20 20:28 zolpidem [From Ambien] Allergy Confusion Verified 03/14/20 20:28 NSAIDS (Non-Steroidal AdvReac Severe kidney Verified 03/14/20 20:28 Anti-Inflamma disease Review of Systems Review of Systems Narrative: Review of systems is not obtainable today. Exam Vital Signs (past 8 hours): - 05/28/22 00:00 05/28/22 00:00 05/28/22 00:15 Temperature Pulse Rate 60 Respiratory Rate 21 Blood Pressure 109/57 L 101/52 L Pulse Oximetry 99 Oxygen Delivery Method Oxygen Flow Rate 05/28/22 00:15 05/28/22 00:30 05/28/22 00:30 Temperature Pulse Rate 61 61 Respiratory Rate 19 17 Blood Pressure 95/54 L Pulse Oximetry 100 100 Oxygen Delivery Method Oxygen Flow Rate 05/28/22 00:45 05/28/22 00:45 05/28/22 01:00 Temperature Pulse Rate 61 62 Respiratory Rate 19 22 Blood Pressure 103/52 L Pulse Oximetry 100 100 Oxygen Delivery Method Oxygen Flow Rate 05/28/22 01:01 05/28/22 01:01 05/28/22 01:35 Temperature 98.1 F Pulse Rate 61 58 L Respiratory Rate 18 12 Blood Pressure 101/57 L 108/46 L Pulse Oximetry 100 100 Oxygen Delivery Method Oxygen Flow Rate 0 05/28/22 01:05 05/28/22 05:00 Temperature 97.0 F L Pulse Rate 61 Respiratory Rate 15 Blood Pressure 96/34 L Pulse Oximetry 99 Oxygen Delivery Method Room Air Oxygen Flow Rate 0 Oxygen Delivery Method Room Air Oxygen Flow Rate 0 Narrative Exam Narrative: Left knee is examined. There is prominent swelling medial to the knee with an approximately 4 x 8 cm area of epidermolysis in the center of the swollen area. This is darkly purple underneath. Motion of the knee is painful. Calf is soft. Light touch and motion of the toes is intact. There is no surrounding erythema. Objective Labs Result Diagrams: 05/28/22 05:00 05/28/22 05:00 Labs: Laboratory Results - last 24 hr 05/27/22 05/27/22 05/27/22 19:40 19:40 19:40 WBC 7.1 RBC 2.75 L Hgb 6.7 L* Hct 20.8 L* MCV 75.7 L MCH 24.6 L MCHC 32.4 RDW 24.5 H Plt Count 206 Neut % (Auto) 75.0 Lymph % (Auto) 11.4 L [place] % (Auto) 9.8 Eos % (Auto) 2.8 Baso % (Auto) 1.0 Neut # (Auto) 5400 Lymph # (Auto) 800 L [place] # (Auto) 700 Eos # (Auto) 200 Baso # (Auto) 100 RBC Morphology Not Reportable Poikilocytosis Anisocytosis 3+ H PT INR Sodium 132 L Potassium 4.3 Chloride 97 L Carbon Dioxide 27 BUN 61 H Creatinine 3.18 H Estimated GFR 19 L BUN/Creatinine Ratio 19.2 Glucose 130 H Hemoglobin A1c Lactate 1.3 Calcium 8.4 Magnesium Total Bilirubin 1.5 H AST 28 ALT 27 Alkaline Phosphatase 170 H NT-Pro-B Natriuret Pep Total Protein 7.1 Albumin 3.6 Globulin 3.5 Albumin/Globulin Ratio 1.0 Lipase 135 Procalcitonin 0.50 Urine RBC Urine WBC Urine Bacteria Urine Yeast Ur Culture Indicated? SARS-CoV-2 (PCR) Blood Type Antibody Screen Crossmatch 05/27/22 05/27/22 05/27/22 19:40 19:40 19:40 WBC RBC Hgb Hct MCV MCH MCHC RDW Plt Count Neut % (Auto) Lymph % (Auto) [place] % (Auto) Eos % (Auto) Baso % (Auto) Neut # (Auto) Lymph # (Auto) [place] # (Auto) Eos # (Auto) Baso # (Auto) RBC Morphology Poikilocytosis Anisocytosis PT INR Sodium Potassium Chloride Carbon Dioxide BUN Creatinine Estimated GFR BUN/Creatinine Ratio Glucose Hemoglobin A1c 6.5 H Lactate Calcium Magnesium 1.7 Total Bilirubin AST ALT Alkaline Phosphatase NT-Pro-B Natriuret Pep 7170 H Total Protein Albumin Globulin Albumin/Globulin Ratio Lipase Procalcitonin Urine RBC Urine WBC Urine Bacteria Urine Yeast Ur Culture Indicated? SARS-CoV-2 (PCR) Blood Type Antibody Screen Crossmatch 05/27/22 05/27/22 05/27/22 20:21 20:47 22:00 WBC RBC Hgb Hct MCV MCH MCHC RDW Plt Count Neut % (Auto) Lymph % (Auto) [place] % (Auto) Eos % (Auto) Baso % (Auto) Neut # (Auto) Lymph # (Auto) [place] # (Auto) Eos # (Auto) Baso # (Auto) RBC Morphology Poikilocytosis Anisocytosis PT INR Sodium Potassium Chloride Carbon Dioxide BUN Creatinine Estimated GFR BUN/Creatinine Ratio Glucose Hemoglobin A1c Lactate Calcium Magnesium Total Bilirubin AST ALT Alkaline Phosphatase NT-Pro-B Natriuret Pep Total Protein Albumin Globulin Albumin/Globulin Ratio Lipase Procalcitonin Urine RBC 0-1/hpf Urine WBC 30-100/hpf H Urine Bacteria Few (2-10) H Urine Yeast 30-100/hpf H Ur Culture Indicated? Specimen cultured SARS-CoV-2 (PCR) Negative Blood Type A Negative Antibody Screen Negative Crossmatch See Detail 05/28/22 05/28/22 05/28/22 01:37 05:00 05:00 WBC RBC Hgb 7.9 L Hct 24.5 L MCV MCH MCHC RDW Plt Count Neut % (Auto) Lymph % (Auto) [place] % (Auto) Eos % (Auto) Baso % (Auto) Neut # (Auto) Lymph # (Auto) [place] # (Auto) Eos # (Auto) Baso # (Auto) RBC Morphology Poikilocytosis Anisocytosis PT 14.1 H INR 1.2 Sodium Potassium Chloride Carbon Dioxide BUN Creatinine Estimated GFR BUN/Creatinine Ratio Glucose Hemoglobin A1c Lactate Calcium Magnesium 1.5 L Total Bilirubin AST ALT Alkaline Phosphatase NT-Pro-B Natriuret Pep Total Protein Albumin Globulin Albumin/Globulin Ratio Lipase Procalcitonin Urine RBC Urine WBC Urine Bacteria Urine Yeast Ur Culture Indicated? SARS-CoV-2 (PCR) Blood Type Antibody Screen Crossmatch 05/28/22 05/28/22 05:00 05:00 WBC 5.9 RBC 3.16 L Hgb 8.2 L Hct 24.9 L MCV 78.6 L MCH 25.9 L MCHC 32.9 RDW 23.2 H Plt Count 164 Neut % (Auto) 78.2 H Lymph % (Auto) 9.9 L [place] % (Auto) 8.4 Eos % (Auto) 2.8 Baso % (Auto) 0.7 Neut # (Auto) 4600 Lymph # (Auto) 600 L [place] # (Auto) 500 Eos # (Auto) 200 Baso # (Auto) 0 RBC Morphology Not Reportable Poikilocytosis 1+ H Anisocytosis 2+ H PT INR Sodium 134 L Potassium 4.1 Chloride 100 Carbon Dioxide 25 BUN 60 H Creatinine 2.67 H Estimated GFR 24 L BUN/Creatinine Ratio 22.5 H Glucose 133 H Hemoglobin A1c Lactate Calcium 8.0 L Magnesium Total Bilirubin 2.6 H AST 30 ALT 23 Alkaline Phosphatase 144 H NT-Pro-B Natriuret Pep Total Protein 6.4 Albumin 3.0 L Globulin 3.4 Albumin/Globulin Ratio 0.9 L Lipase Procalcitonin Urine RBC Urine WBC Urine Bacteria Urine Yeast Ur Culture Indicated? SARS-CoV-2 (PCR) Blood Type Antibody Screen Crossmatch CT scan obtained last night is reviewed and independently interpreted today. There is an extra-articular subcutaneous hematoma evident. There is no fracture. Incidental note is made of underlying degenerative joint disease of the knee. 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 This has led to some overlying skin necrosis in a substantial area. This is not currently infected. I have dressed this area with Xeroform and sterile gauze. I would recommend he be evaluated by a heat plant specialist to try to save this area of skin. I am reluctant to drain the underlying hematoma as the incision will place the skin at risk, and may not heal. He definitely needs to be off his anticoagulants for the time being. Should he lose the central area of skin, he will need evaluation by Plastic surgery for skin flap coverage. This is not a procedure that is provided by orthopedic surgery at this institution. COVID-19 COVID-19 status: Negative Result date/Date tested (Pos, Neg/Pending): 05/27/22 Time Spent With Patient Time with patient: less than 30 minutes Critical Care time: I spent a total of [] minutes of critical care time on this patient's care today; this time is exclusive of procedural time.
[2022-05-28] MEDS: DULOXETINE 30 MG CAPSULE 90 MG PO (08:46)
[2022-05-28] MEDS: TRAMADOL 50 MG TABLET PO (08:59)
[2022-05-28] MEDS: INSULIN GLARGINE 100 UNIT/ML 3ML PEN 30 UNIT SUBCUT ×2 (09:00→22:30)
--- NOTE | 2022-05-28 10:48 | PM.PN.1 ---
Subjective Subjective Date Patient Seen: 05/28/22 Time Patient Seen: 10:45 Interval history: He indicates his pain is adequately controlled. No new complaints. Exam Vital Signs (past 8 hours): - 05/28/22 05:00 05/28/22 08:20 05/28/22 10:01 Temperature 97.0 F L 97.4 F L Pulse Rate 61 63 63 Respiratory Rate 15 18 Blood Pressure 96/34 L 103/48 L 103/48 L Pulse Oximetry 99 98 Oxygen Flow Rate 0 0 Oxygen Delivery Method Room Air Oxygen Flow Rate 0 Narrative Exam Narrative: Sleepy but does not appear to be any in any acute medical distress. HEENT: Was equal reactive to light. Extraocular movements normal. Neck is supple. Neck nodes are not tender not palpable. Trachea is midline. Head normocephalic. Cardiovascular: Heart sounds S1 and S2 with no extra sounds or murmurs. Some general edema of the lower extremities. Peripheral pulses equal bilaterally. Respiratory: Adequate air entry throughout the lung zamarripa no wheezes or crackles. Gastrointestinal: Abdomen soft nontender bowel sounds normal. Skin: On upper extremities left greater than right. Left knee area wound. Wound Care has been consulted. Musculoskeletal: Able to move all extremities volitionally. Left knee dressed where a hematoma/wound is. Neuro: Alert and oriented to person and place. Normal sensation of all extremities. Psych: Appears to be in good mood. No signs of acute depression. Objective Labs Result Diagrams: 05/28/22 05:00 05/28/22 05:00 Labs: Laboratory Results - last 24 hr 05/27/22 05/27/22 05/27/22 19:40 19:40 19:40 WBC 7.1 RBC 2.75 L Hgb 6.7 L* Hct 20.8 L* MCV 75.7 L MCH 24.6 L MCHC 32.4 RDW 24.5 H Plt Count 206 Neut % (Auto) 75.0 Lymph % (Auto) 11.4 L [place] % (Auto) 9.8 Eos % (Auto) 2.8 Baso % (Auto) 1.0 Neut # (Auto) 5400 Lymph # (Auto) 800 L [place] # (Auto) 700 Eos # (Auto) 200 Baso # (Auto) 100 RBC Morphology Not Reportable Poikilocytosis Anisocytosis 3+ H PT INR Sodium 132 L Potassium 4.3 Chloride 97 L Carbon Dioxide 27 BUN 61 H Creatinine 3.18 H Estimated GFR 19 L BUN/Creatinine Ratio 19.2 Glucose 130 H Hemoglobin A1c Lactate 1.3 Calcium 8.4 Magnesium Total Bilirubin 1.5 H AST 28 ALT 27 Alkaline Phosphatase 170 H NT-Pro-B Natriuret Pep Total Protein 7.1 Albumin 3.6 Globulin 3.5 Albumin/Globulin Ratio 1.0 Lipase 135 Procalcitonin 0.50 Urine RBC Urine WBC Urine Bacteria Urine Yeast Ur Culture Indicated? SARS-CoV-2 (PCR) Blood Type Antibody Screen Crossmatch 05/27/22 05/27/22 05/27/22 19:40 19:40 19:40 WBC RBC Hgb Hct MCV MCH MCHC RDW Plt Count Neut % (Auto) Lymph % (Auto) [place] % (Auto) Eos % (Auto) Baso % (Auto) Neut # (Auto) Lymph # (Auto) [place] # (Auto) Eos # (Auto) Baso # (Auto) RBC Morphology Poikilocytosis Anisocytosis PT INR Sodium Potassium Chloride Carbon Dioxide BUN Creatinine Estimated GFR BUN/Creatinine Ratio Glucose Hemoglobin A1c 6.5 H Lactate Calcium Magnesium 1.7 Total Bilirubin AST ALT Alkaline Phosphatase NT-Pro-B Natriuret Pep 7170 H Total Protein Albumin Globulin Albumin/Globulin Ratio Lipase Procalcitonin Urine RBC Urine WBC Urine Bacteria Urine Yeast Ur Culture Indicated? SARS-CoV-2 (PCR) Blood Type Antibody Screen Crossmatch 05/27/22 05/27/22 05/27/22 20:21 20:47 22:00 WBC RBC Hgb Hct MCV MCH MCHC RDW Plt Count Neut % (Auto) Lymph % (Auto) [place] % (Auto) Eos % (Auto) Baso % (Auto) Neut # (Auto) Lymph # (Auto) [place] # (Auto) Eos # (Auto) Baso # (Auto) RBC Morphology Poikilocytosis Anisocytosis PT INR Sodium Potassium Chloride Carbon Dioxide BUN Creatinine Estimated GFR BUN/Creatinine Ratio Glucose Hemoglobin A1c Lactate Calcium Magnesium Total Bilirubin AST ALT Alkaline Phosphatase NT-Pro-B Natriuret Pep Total Protein Albumin Globulin Albumin/Globulin Ratio Lipase Procalcitonin Urine RBC 0-1/hpf Urine WBC 30-100/hpf H Urine Bacteria Few (2-10) H Urine Yeast 30-100/hpf H Ur Culture Indicated? Specimen cultured SARS-CoV-2 (PCR) Negative Blood Type A Negative Antibody Screen Negative Crossmatch See Detail 05/28/22 05/28/22 05/28/22 01:37 05:00 05:00 WBC RBC Hgb 7.9 L Hct 24.5 L MCV MCH MCHC RDW Plt Count Neut % (Auto) Lymph % (Auto) [place] % (Auto) Eos % (Auto) Baso % (Auto) Neut # (Auto) Lymph # (Auto) [place] # (Auto) Eos # (Auto) Baso # (Auto) RBC Morphology Poikilocytosis Anisocytosis PT 14.1 H INR 1.2 Sodium Potassium Chloride Carbon Dioxide BUN Creatinine Estimated GFR BUN/Creatinine Ratio Glucose Hemoglobin A1c Lactate Calcium Magnesium 1.5 L Total Bilirubin AST ALT Alkaline Phosphatase NT-Pro-B Natriuret Pep Total Protein Albumin Globulin Albumin/Globulin Ratio Lipase Procalcitonin Urine RBC Urine WBC Urine Bacteria Urine Yeast Ur Culture Indicated? SARS-CoV-2 (PCR) Blood Type Antibody Screen Crossmatch 05/28/22 05/28/22 05:00 05:00 WBC 5.9 RBC 3.16 L Hgb 8.2 L Hct 24.9 L MCV 78.6 L MCH 25.9 L MCHC 32.9 RDW 23.2 H Plt Count 164 Neut % (Auto) 78.2 H Lymph % (Auto) 9.9 L [place] % (Auto) 8.4 Eos % (Auto) 2.8 Baso % (Auto) 0.7 Neut # (Auto) 4600 Lymph # (Auto) 600 L [place] # (Auto) 500 Eos # (Auto) 200 Baso # (Auto) 0 RBC Morphology Not Reportable Poikilocytosis 1+ H Anisocytosis 2+ H PT INR Sodium 134 L Potassium 4.1 Chloride 100 Carbon Dioxide 25 BUN 60 H Creatinine 2.67 H Estimated GFR 24 L BUN/Creatinine Ratio 22.5 H Glucose 133 H Hemoglobin A1c Lactate Calcium 8.0 L Magnesium Total Bilirubin 2.6 H AST 30 ALT 23 Alkaline Phosphatase 144 H NT-Pro-B Natriuret Pep Total Protein 6.4 Albumin 3.0 L Globulin 3.4 Albumin/Globulin Ratio 0.9 L Lipase Procalcitonin Urine RBC Urine WBC Urine Bacteria Urine Yeast Ur Culture Indicated? 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 As well for wound care and hematoma care. Difficulty clarifying the exact regular medications for this patient. Will re-discuss with son when he visits today. 1. Acute blood loss anemia likely secondary to over coagulation with what appears to be triple anti-platelet therapy, present on admission. Causing hematoma left leg. With skin compromise over the hematoma will have wound care evaluate. Consult ordered. Patient's rivaroxaban, aspirin and clopidogrel are being held Patient received 2 units PRBC in the emergency department increasing his H&H from 6.7-7.9 and 20.8-24.5 respectively. Today hemoglobin stable at 8.2. Continue to follow-up. In the ER, he received IV Lasix 80 mg in addition to his home oral dose of hydrochlorothiazide and torsemide. Will increase daily furosemide to 40 mg daily. Hydrochlorothiazide is not been ordered. Will add torsemide. 2. Acute kidney injury likely secondary to blood loss anemia, present on admission Patient was fluid resuscitated in the emergency department 2 L He is currently saline lock due to volume overload Closely monitor renal function and hold nephrotoxic medications (Lisinopril). GFR improved to 24 today. Continue to follow 3. Acute decompensated heart failure with reduced ejection fraction, present on admission Patient's proBNP is almost 7200 Patient is currently recovering from biventricular heart catheterization Will need to contact his window cleaner to advise of his admission Continue carvedilol 25 mg p.o. b.i.d., patient receives in 12.5 mg tablets 4. Probable left knee cellulitis, acute, present on admission Patient currently being treated with vancomycin. This is essentially prophylactic. Orthopedic surgery has been consulted and seen the patient. 5. Coronary artery disease, chronic Continue home dose of atorvastatin 40 mg p.o. at bedtime 6. Diabetes type 2, appears to be well controlled A1c is 6.5 He will receive his home dose of Lantus 30 units b.i.d. Metformin remains on hold due to renal function. Low-dose correctional scale insulin and adjust as needed Carb controlled diet with a.c. HS glucose checks VTE Prophylaxis: Wells risk score 1.5.? Pharmacological VTE prophylaxis is contraindicated in the setting of active bleeding will do SCD? Patient is inpatient service due to the severity of disease, risks of further disease progression and this stay is expected to exceed 2 midnights. FEN: IV fluids: saline lock, diet: carb controlled diet, labs: CBC, C/BMP, liver enzymes, Mag, PT/INR Consultants Dr. Guerrero Orthopedic Surgery,? care and involvement in the patient?s care is appreciated. This has been completed. Dispo: Unknown at this time Code status: Full code as discussed with the patient who identifies his son, Talon his surrogate and POA. Time Spent With Patient Critical Care time: I spent a total of [] minutes of critical care time on this patient's care today; this time is exclusive of procedural time. Quality VTE Deep Vein Thrombosis/Pulmonary Embolism Present on Admission: No
--- NOTE | 2022-05-28 10:50 | PT.IIE ---
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 Before his knee injury he was not using a device. Activities of Daily Living and IADL's Independent before his knee injury, has been needing help recently Prior Functional Level (Other details) pt was previously driving Social History Household Members significant other,family Living Arrangements House Number of Floors (Floors) One Floor Number of Stairs To Enter/Railing? one Home Equipment Front Wheel Walker,Straight Cane Employment Status Retired Additional Social History Comment He is staying with his Son and DIL, his DIL is there all the time and can help M2 PT-IP Current Condition Start: 05/28/22 10:58 Freq: NEEDED Status: Active Protocol: Document 05/28/22 10:50 DLM (Rec: 05/28/22 11:27 DLM [id number]) Physical Therapy Current Condition Current Condition Evaluation Date 05/28/22 Treatment Diagnosis left LE hematoma, impaired mobility and gait Onset Date 05/28/22 M3 PT-IP Subjective Start: 05/28/22 10:58 Freq: NEEDED Status: Active Protocol: Document 05/28/22 10:50 DLM (Rec: 05/28/22 11:27 DLM [id number]) Subjective Physical Therapy Visit Type Type Initial Evaluation Visit Start Time 10:15 Visit Stop Time 10:50 Total Visit Minutes 35 Number of BABY ATTENDANT Visits 0 Physical Therapy Visit Comments Patient Comments He reports his left leg has been hurting a lot, 5/10 at rest and 7/10 when moving it. He recalls he fell but does not know why. Patient Goals Get better M4 PT-IP Mobility and Gait Start: 05/28/22 10:58 Freq: NEEDED Status: Active Protocol: Document 05/28/22 10:50 DLM (Rec: 05/28/22 11:27 DLM [id number]) PT-Bed Mobility Assessment Supine to Sit Supine to Sit Minimal Assistance Scooting Scooting to Edge of Bed Moderate Assistance PT-Transfer Assessment Sit to and From Stand Sit to and from Stand Minimal Assistance,Use of Upper Extremities Equipment Transfer Assistive Device Gait Belt,Front Wheeled Walker Transfers Transfer Destination Chair Transfer Technique Stand Step Pivot Transfer Ability Level of Assist Minimal Assistance,Use of Upper Extremities Comments Mobility Comments He often closes his eyes but is not sleeping. He reports he does not know why he closes them. He sat edge of bed and was able to transfer up to the recliner. His pain limits left knee flexion and weight bearing on left LE. In standing he weight bears with UE's on FWW and on left forefoot. He was able to take a few functional steps to get to the chair with significant left LE pain. Pt positioned in recliner for comfort with needs close and chair alarm for safety. Gait Assessment Comments Gait Comments did not attept gait due to left LE pain this visit and pt having difficulty keeping eyes open PT-Balance Assessment Sitting Balance and Reactions Static Sitting Balance Ability Normal Dynamic Sitting Balance Ability Normal Standing Balance and Reactions Static Standing Balance Ability Fair Dynamic Standing Balance Ability Fair Device Used FWW M5 PT-IP Objective Assessments Start: 05/28/22 10:58 Freq: NEEDED Status: Active Protocol: Document 05/28/22 10:50 DLM (Rec: 05/28/22 11:27 DLM [id number]) Orientation Orientation/Cognition Level of Alertness Alert Orientation Name,Birthday,Place,Situation Language Function Ability No Deficits Noted Safety Awareness Understands Safety Issues Memory Description Short Term Impaired Comments often closes eyes but not sleeping Gross Range of Motion Upper Extremity ROM Assessment Within Functional Limits Lower Extremity ROM Assessment Left Impaired Impairments tolerated about 80 degrees knee flexion seated edge of bed with pain, all left knee movements painful as well as left DF/PF Strength Upper Extremity Strength Assessment Within Functional Limits Lower Extremity Strength Assessment Left Impaired Hip able to do straight leg raise off bed Knee too painful and bruised for testing, able to move actively Ankle moving actively but painful Comments Strength Comments left knee/calf area pain limits ROM and strength, significant bruising noted in knee area up into thigh, dressing over knee and calf areas Coordination Assessment Gross Coordination Gross Coordination WNL Sensation Assessment Sensation Gross Sensation Right LE Impaired,Left LE Impaired Sensation Description Numbness,Tingling Comments Sensation Comments hx numbness/tingling in feet Muscle Tone Muscle Tone WNL Yes M6 PT-IP Treatment Start: 05/28/22 10:58 Freq: NEEDED Status: Active Protocol: Document 05/28/22 10:50 DLM (Rec: 05/28/22 11:27 DLM [id number]) Physical Therapy Treatment Education Education Provided Safety Other Treatments Other Treatment Performed educated pt to have staff assist for mobility to avoid falls, he agrees to use call light M7 PT-IP Assessment and Plan Start: 05/28/22 10:58 Freq: NEEDED Status: Active Protocol: Document 05/28/22 10:50 DLM (Rec: 05/28/22 11:27 DLM [id number]) PT Summary Assessment and Plan Potential Rehabilitation Potential Good Status of Condition at Evaluation Evolving Summary Impairments Pain,ROM,Strength,Balance, Sensation,Cognition,Bed Mobility,Transfers,Gait, Activity Tolerance Assessment Summary Kenneth is resting in bed with his eyes closed. He is awake and talkative but often keeps eyes closed. He is able to open his eyes when asked. He reports he does not know why he is in the hospital this time. He is concerned about his continuing left LE pain that started after a fall at home but the date is not clear . He has limited ROM and strength left LE with pain. He was able to transfer up to the chair today with one person assist and the FWW. Pt was not ready to progress to ambulation at this time. Will continue to assess his ability to discharge home with his family to assist as he improves medically and home situation can be clarified with family. Goals Bed Mobility Goal Independent Transfer Goal Standby Assistance,Front Wheeled Walker Gait Goal Standby Assistance,Front Wheel Walker Gait Distance 50 feet Other Goals up and down one step with FWW and CG assist Days to Meet Goals 5 Frequency of Treatment Frequency Of Treatment Once a Day Treatment Plan Physical Therapy Treatment Plan Bed Mobility Training,Transfer Training,Gait Training, Therapeutic Exercise,Balance Retraining,Discharge Planning, Hot or Cold Pack,Neuromuscular Re-ed Other Recommendations and Next Treatment progress gait with caution to Focus manage bleeding in left knee area with known hematoma Precautions Other Precautions cardiac history, no weight bearing restrictions ordered at his time Recommendations To Nursing Amount of Assist Needed 1 Person Assist Discharge Recommendations PT Discharge Recommendations Home with 29/04 Assist Available,Home Health,Home vs SNF Other Discharge Recommendations will need to clarify if family able to care for him at home, recommend home health if he goes home Transportation Needs at Discharge Private Vehicle
--- NOTE | 2022-05-28 11:00 | PC.NURSE ---
Pt states chronic pain in leg, gave 5mg oxycodone for this. BS this AM was 119, so no humalog insulin was given. PT transferred pt to chair, 1 person assist, needing most help sitting up but once standing up with walker did not need much assistance.
--- NOTE | 2022-05-28 11:03 | CM.DANOTE ---
Addendum entered by Danika Sandoval R.N. 05/28/22 12:46: Met with patient in his room. He is sitting up in chair, alert and oriented, pleasant. Confirmed that he resides with son and his spouse in [place]. Patient indicated, his son is very supportive and involved. He also remembers that he is currently on home health services. Patient wants to be able to go home when he is better. Will continue to follow closely, and will be available for any resources needed. Original Note: DCP: Case received, EMR reviewed. Patient sleeping, but was able to get in touch with son via phone. Introduced self and role. Was able to complete DCP assessment based upon information currently available. Patient is a 77 year old male who admitted early this morning to the care of the hospitalist team. PCP: Dr. French. Payer: confirmed: Medicare/[employer]. Patient came to the hospital via ambulance secondary to having increased confusion, not being completely aware, according to patient's son. Patient has history of CAD, paroxysmal atrial fibrillation, post TAVR, HTN, CHF, b-cell lymphoma. According to notes, patient was recenty discharged from [facility] for acute CHF, and discharged on 05/07. He had PCI of distal right coronary artery, and transesophageal echo and cardioversion for a-fib. Patient was admitted at [facility] in April for CHF. He also was admitted at [facility] on 05-24-19 for ground level fall. Patient is admitted for acute blood loss anemia, acute kidney injury secondary to blood loss anemia, and acute decompensated heart failure with reduced ejection fraction. Patient also had ortho consult for left knee subcutaneous hematoma. Spoke to patient's son, Dion.. Confirmed that patient resides with him and his spouse in [place]. At patient's baseline, he uses a walker. Son indicated, he has not had recent fall. Patient is currently under [facility] services for RN, confirmed with Alyssia at [facility]. P: DCP to continue to follow. Patient does have P.T. orders, which are currently pending. Will see how he does with P.T, may be able to go home and resume home health services. Danika Sandoval RN/Limousine Rental Clerk Discharge Planning/Care Management CM Discharge Assessment Start: 05/28/22 11:01 Freq: Status: Active Protocol: Document 05/28/22 11:01 (Rec: 05/28/22 11:03 [id number]) Discharge Planning Assessment Assigned Right Of Way Clearer Danika Sandoval RN/Limousine Rental Clerk Advance Directives? No History Provided By Patient,Medical Record Prior Living Arrangements House Household Members children Type of transporation used prior to Relies on Others admit Needs Assistance With Meal Prep,Managing Medications ,Home Chores / Shopping Caregiver for Another No DME Already Rented / Owned FWW / Walker,Cane Patient/Family Preference Home with Home Health Comment Patient is currently under [facility] . Barriers to Discharge Yes Comment If patient needs prison, has some significant wound care, which facilities may not be able to manage Discharge Plan Home Transportation Arrangement Family to provide transportation Referrals Initiated Other Whiteboard Updated in Patient Room with Yes name and ext. # of Right Of Way Clearer Review Status In Process Next Review Type Continued Stay Review
[2022-05-28] MEDS: FUROSEMIDE 40 MG TABLET PO (11:20)
[2022-05-28] MEDS: MAGNESIUM CHLORIDE 64 MG TABLET 128 MG PO (11:20)
--- NOTE | 2022-05-28 11:51 | DIET.CONS2 ---
Dietary Inpatient Consultation Note Admission Date: 05/28/2022 00:50 RD Note: Pt did not receive humalog this am leading to BG 301 before lunch today. Pharmacy alerted. Diet: 05/28/22 Breakfast Carbohydrate Consistent Diet Diet Modifications: Carbohydrate level: Large (4 CHO) Bedtime snack: Yes Nutrition Percent Meal Consumed 0% 05/27/22 22:00 Electronically Signed by: Kaitlynn Gandhi 05/28/22 11:51 Clinical Dietitian [address] [address]
[2022-05-28] MEDS: INSULIN LISPRO 100 UNIT/ML 3ML VIAL SUBCUT ×2 (12:09→16:57)
[2022-05-28] MEDS: TORSEMIDE 10 MG TABLET 20 MG PO (16:55)
[2022-05-28] MEDS: carvediloL 12.5 MG TABLET 25 MG PO (20:34)
[2022-05-28] MEDS: ATORVASTATIN 20 MG TABLET 40 MG PO (20:34)
[2022-05-28] MEDS: PANTOPRAZOLE DR 20 MG TABLET PO (20:37)
[2022-05-29] VITALS (7 sets, daily range): BP systolic 105–132; BP diastolic 42–52; PULSE 64–69; RESP 16–17; TEMP 36–36.6; O2SAT 94–99
[2022-05-29 05:55] LABS: Add Manual Diff / Slide Review NO; Basophils Absolute Auto 0 /uL (0-100); Basophils Percent Auto 0.7 % (0-2); Eosinophils Absolute Auto 200 /uL (0-450); Eosinophils Percent Auto 3.8 % (2-4); Hematocrit 24.2 % (41-53); Hemoglobin 8.1 g/dL (13.5-17.5); Lymphocytes Absolute Auto 600 /uL (1100-4500); Lymphocytes Percent Auto 13.4 % (25-40); Mean Corpuscular HGB Conc 33.5 % (30-36); Mean Corpuscular Hemoglobin 26.1 PG (26-34); Mean Corpuscular Volume 77.8 fL (80-100); Monocytes Absolute Auto 500 /uL (0-900); Monocytes Percent Auto 10.4 % (3-14); Neutrophils Absolute Auto 3400 /uL (1500-7000); Neutrophils Percent Auto 71.7 % (50-75); Platelet Count 159 X10^3/uL (150-400); Red Blood Cell Count 3.11 X10^6/uL (4.5-5.9); Red Cell Distribution Width 23.7 % (11.6-14.8); White Blood Cell Count 4.7 X10^3/uL (4.5-11.0)
[2022-05-29 06:04] LABS: Alanine Aminotransferase 17 IU/L (<50); Albumin 3.2 g/dL (3.5-5.0); Albumin Globulin Ratio 0.9 (1.0-2.8); Alkaline Phosphatase 133 U/L (38-126); Aspartate Aminotransferase 22 IU/L (17-59); BUN Creatinine Ratio 24.3 (6-22); Bilirubin Total 1.9 mg/dL (0.2-1.3); Blood Urea Nitrogen 53 mg/dL (9-20); Calcium 8.3 mg/dL (8.4-10.2); Carbon Dioxide 27 mmol/L (22-32); Chloride 99 mmol/L (98-107); Estimated Glomerular Filt Rate 31 mL/min (>60); Globulin 3.5 g/dL (1.7-4.1); Glucose 107 mg/dL (80-110); HEMOLYSIS < 15 (0-50); Potassium 3.7 mmol/L (3.4-5.1); Sodium 134 mmol/L (137-145); Total Protein 6.7 g/dL (6.3-8.2)
[2022-05-29 06:18] LABS: C-Reactive Protein Quant 16.1 mg/dL (<1.0)
[2022-05-29] MEDS: PANTOPRAZOLE DR 20 MG TABLET PO ×2 (06:26→21:36)
[2022-05-29 06:28] LABS: Magnesium 1.4 mg/dL (1.6-2.3)
[2022-05-29 06:42] LABS: Anisocytosis 3+
[2022-05-29] MEDS: DULOXETINE 30 MG CAPSULE 90 MG PO (08:48)
[2022-05-29] MEDS: FUROSEMIDE 40 MG TABLET PO (08:49)
[2022-05-29] MEDS: CHOLECALCIFEROL (VITAMIN D3) 1,000 UNIT TABLET 1000 UNIT PO (08:49)
[2022-05-29] MEDS: TRAMADOL 50 MG TABLET PO ×3 (08:55→20:15)
[2022-05-29] MEDS: INSULIN GLARGINE 100 UNIT/ML 3ML PEN 30 UNIT SUBCUT ×2 (08:56→21:42)
--- NOTE | 2022-05-29 10:28 | PT.IPTN ---
Current Diagnoses Acute posthemorrhagic anemia (05/28/22) penitentiary (current) use of anticoagulants (05/28/22) Physical Therapy Treatment Note M2 PT-IP Current Condition Start: 05/28/22 10:58 Freq: NEEDED Status: Active Protocol: Document 05/28/22 10:50 DLM (Rec: 05/28/22 11:27 DLM [id number]) Physical Therapy Current Condition Current Condition Evaluation Date 05/28/22 Treatment Diagnosis left LE hematoma, impaired mobility and gait Onset Date 05/28/22 M3 PT-IP Subjective Start: 05/28/22 10:58 Freq: NEEDED Status: Active Protocol: Document 05/29/22 09:59 LJ (Rec: 05/29/22 10:28 LJ [id number]) Subjective Physical Therapy Visit Type Type Treatment Note Visit Start Time 09:37 Visit Stop Time 09:59 Total Visit Minutes 22 Number of SOCIAL WORK SPECIALIST Visits 1 Physical Therapy Visit Comments Patient Comments Pt lying in bed. Reports pain in leg 8/10 resting. Agrees to get up to attempt gait. Pt states he is going to get an electric walker for use at home outside and continue using FWW inside his home. Patient Goals Get better M4 PT-IP Mobility and Gait Start: 05/28/22 10:58 Freq: NEEDED Status: Active Protocol: Document 05/29/22 09:59 LJ (Rec: 05/29/22 10:28 LJ [id number]) PT-Bed Mobility Assessment Rolling Type of Rolling Roll to Right Level of Assist Contact Guard Assistance Supine to Sit Supine to Sit Contact Guard Assistance, Minimal Assistance Scooting Scooting to Edge of Bed Standby Assistance PT-Transfer Assessment Sit to and From Stand Sit to and from Stand Contact Guard Assistance,1 Person Assistance,Use of Upper Extremities Equipment Transfer Assistive Device Gait Belt,Front Wheeled Walker Transfers Transfer Destination Chair Transfer Technique Stand Step Pivot Transfer Ability Level of Assist Minimal Assistance,Use of Upper Extremities Comments Mobility Comments Pt sleeping but easily aroused . He is able to do a logroll to right with use of rails and assist with FWW being next to bed and stabilized by SOCIAL WORK SPECIALIST. He stood with CGA and use of stabilized FWW. Pt immediately began transfer to the chair using 3 small steps putting minimal weight on LLE. Reports 9/10 pain. He eased himself down onto the chair using UEs and scooted himself back SBA. Requested to be in reclining position. Gait Assessment Comments Gait Comments see mobility M5 PT-IP Objective Assessments Start: 05/28/22 10:58 Freq: NEEDED Status: Active Protocol: Document 05/28/22 10:50 DLM (Rec: 05/28/22 11:27 DLM [id number]) Orientation Orientation/Cognition Level of Alertness Alert Orientation Name,Birthday,Place,Situation Language Function Ability No Deficits Noted Safety Awareness Understands Safety Issues Memory Description Short Term Impaired Comments often closes eyes but not sleeping Gross Range of Motion Upper Extremity ROM Assessment Within Functional Limits Lower Extremity ROM Assessment Left Impaired Impairments tolerated about 80 degrees knee flexion seated edge of bed with pain, all left knee movements painful as well as left DF/PF Strength Upper Extremity Strength Assessment Within Functional Limits Lower Extremity Strength Assessment Left Impaired Hip able to do straight leg raise off bed Knee too painful and bruised for testing, able to move actively Ankle moving actively but painful Comments Strength Comments left knee/calf area pain limits ROM and strength, significant bruising noted in knee area up into thigh, dressing over knee and calf areas Coordination Assessment Gross Coordination Gross Coordination WNL Sensation Assessment Sensation Gross Sensation Right LE Impaired,Left LE Impaired Sensation Description Numbness,Tingling Comments Sensation Comments hx numbness/tingling in feet Muscle Tone Muscle Tone WNL Yes M6 PT-IP Treatment Start: 05/28/22 10:58 Freq: NEEDED Status: Active Protocol: Document 05/29/22 09:59 NATALEE (Rec: 05/29/22 10:28 NATALEE [id number]) Physical Therapy Treatment Education Education Provided Safety M7 PT-IP Assessment and Plan Start: 05/28/22 10:58 Freq: NEEDED Status: Active Protocol: Document 05/29/22 09:59 LJ (Rec: 05/29/22 10:28 LJ [id number]) PT Summary Assessment and Plan Potential Rehabilitation Potential Good Status of Condition at Evaluation Evolving Summary Impairments Pain,ROM,Strength,Balance, Sensation,Cognition,Bed Mobility,Transfers,Gait, Activity Tolerance Assessment Summary Kenneth was resting in bed with eyes closed. He was easily awakened and kept his eyes open throughout treatment. He complained of pain in his LLE incudiing his foot. He was able to get up and out of bed with minimal assist from therapist. He transfered to the chair using small steps with minimal weightbearing on LLE and obvious increase in pain. He eased himself down onto the chair and [positioned himself SBA. He was left with all needs within reach and chair alarm on. Goals Bed Mobility Goal Independent Transfer Goal Standby Assistance,Front Wheeled Walker Gait Goal Standby Assistance,Front Wheel Walker Gait Distance 50 feet Other Goals up and down one step with FWW and CG assist Days to Meet Goals 5 Frequency of Treatment Frequency Of Treatment Once a Day Treatment Plan Physical Therapy Treatment Plan Bed Mobility Training,Transfer Training,Gait Training, Therapeutic Exercise,Balance Retraining,Discharge Planning, Hot or Cold Pack,Neuromuscular Re-ed Other Recommendations and Next Treatment progress gait with caution to Focus manage bleeding in left knee area with known hematoma Precautions Other Precautions cardiac history, no weight bearing restrictions ordered at his time Recommendations To Nursing Amount of Assist Needed 1 Person Assist Discharge Recommendations PT Discharge Recommendations Home with 24/ Assist Available,Home Health,Home vs SNF Other Discharge Recommendations will need to clarify if family able to care for him at home, recommend home health if he goes home Transportation Needs at Discharge Private Vehicle
[2022-05-29] MEDS: MAGNESIUM CHLORIDE 64 MG TABLET 128 MG PO (10:32)
[2022-05-29] MEDS: ACETAMINOPHEN 325 MG TABLET 650 MG PO ×2 (10:32→20:11)
--- NOTE | 2022-05-29 11:02 | PM.PN.1 ---
Subjective Subjective Date Patient Seen: 05/29/22 Time Patient Seen: 11:00 Interval history: Fatigued from physical therapy earlier today. In left knee and left foot. No other complaints. Exam Vital Signs (past 8 hours): - 05/29/22 08:00 05/29/22 08:54 Temperature 97.4 F L Pulse Rate 67 67 Respiratory Rate 16 Blood Pressure 111/47 L 111/47 L Pulse Oximetry 97 Oxygen Flow Rate 0 Oxygen Delivery Method Room Air Oxygen Flow Rate 0 Narrative Exam Narrative: Oriented to time place and person. Appears in no acute medical distress. HEENT: Pupils equal reaction to light. Extraocular movements normal. Neck is supple. Neck nodes are nontender nonpalpable. Head is normocephalic. Trachea is midline. Cardiovascular: 1/6 systolic murmur. S1-S2. Peripheral pulses equal bilaterally. No pedal edema. Respiratory: Adequate air entry throughout the lung zamarripa, there are no wheezes or crackles. Gastrointestinal: Bowel sounds normal. Abdomen soft. Nontender. Musculoskeletal: Able to move all extremities volitionally. Beginning to mobilize more with physical therapy. No localized strength deficits. Skin: Abrasions left foot. Wound left knee with hematoma currently dressed. Soft tissues abrasions right arm dressed. Neuro: Normal sensation of all extremities. Oriented x3. Psych: Normal mood and affect. Objective Labs Result Diagrams: 05/29/22 05:25 05/29/22 05:25 Labs: Laboratory Results - last 24 hr 05/29/22 05/29/22 05/29/22 05:25 05:25 05:25 WBC 4.7 RBC 3.11 L Hgb 8.1 L Hct 24.2 L MCV 77.8 L MCH 26.1 MCHC 33.5 RDW 23.7 H Plt Count 159 Neut % (Auto) 71.7 Lymph % (Auto) 13.4 L Anderson % (Auto) 10.4 Eos % (Auto) 3.8 Baso % (Auto) 0.7 Neut # (Auto) 3400 Lymph # (Auto) 600 L Anderson # (Auto) 500 Eos # (Auto) 200 Baso # (Auto) 0 RBC Morphology See below Anisocytosis 3+ H Sodium 134 L Potassium 3.7 Chloride 99 Carbon Dioxide 27 BUN 53 H Creatinine 2.18 H Estimated GFR 31 L BUN/Creatinine Ratio 24.3 H Glucose 107 Calcium 8.3 L Magnesium 1.4 L Total Bilirubin 1.9 H AST 22 ALT 17 Alkaline Phosphatase 133 H C-Reactive Protein 16.1 H Total Protein 6.7 Albumin 3.2 L Globulin 3.5 Albumin/Globulin Ratio 0.9 L [facility] Medical History Anticoagulated Atrial fibrillation Coronary artery disease Diabetes Dyslipidemia Hypertension Sleep apnea Surgical History Hx of cholecystectomy 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 Acute blood loss anemia likely secondary to over coagulation with what appears to be triple anti-platelet therapy, present on admission.? Causing hematoma left leg.? With skin compromise over the hematoma will have wound care evaluate.? Consult pending. Patient's rivaroxaban, aspirin and clopidogrel are being held Patient received 2 units PRBC in the emergency department increasing his H&H from 6.7-7.9 and 20.8-24.5 respectively.? Today hemoglobin stable at 8.1.? This is stable. If remains consistently stable can reinitiate rivaroxaban, aspirin and clopidogrel. 2. Acute kidney injury likely secondary to blood loss anemia, present on admission Patient was fluid resuscitated in the emergency department 2 L He is currently saline lock due to volume overload Closely monitor renal function and hold nephrotoxic medications (Lisinopril).? GFR improved to 31 today.? Renal function is improving. Follow labs. 3. Acute decompensated heart failure with reduced ejection fraction, present on admission In the ER, he received IV Lasix 80 mg in addition to his home oral dose of hydrochlorothiazide and torsemide.? Will increase daily furosemide to 40 mg daily.? Hydrochlorothiazide is not been ordered.? Will add torsemide. Patient's proBNP was almost 7200. Repeat tomorrow. Patient is currently recovering from biventricular heart catheterization Will need to contact his mottler machine feeder to advise of this admission. Paperboard Boxes Estimator is Dr. Joyce in [place]. Will notify of admission, message left at his office. Continue carvedilol 25 mg p.o. b.i.d., patient receives in 12.5 mg tablets 4. Probable left knee cellulitis, acute, present on admission Patient currently being treated with vancomycin.? This is essentially prophylactic. Orthopedic surgery has been consulted and seen the patient. Wound care consulted due to compromised skin at site of hematoma left leg. Has not been evaluated yet. Would be best to have consult and treatment plan prior to discharge. Needed plan for care. 5. Coronary artery disease, chronic Continue home dose of atorvastatin 40 mg p.o. at bedtime 6. Diabetes type 2, appears to be well controlled ?A1c is 6.5 He will receive his home dose of Lantus 30 units b.i.d. Metformin remains on hold due to renal function. Low-dose correctional scale insulin and adjust as needed Carb controlled diet with a.c. HS glucose checks 7. Mobilization. Beginning to mobilize with physical therapy. Continue with treatment. VTE Prophylaxis: Wells risk score 1.5.? Pharmacological VTE prophylaxis is contraindicated in the setting of active bleeding will do SCD? Patient is? inpatient service due to the severity of disease, risks of further disease progression and this stay is expected to exceed 2 midnights. FEN: IV fluids: saline lock, diet: carb controlled diet, labs: CBC, C/BMP, liver enzymes, Mag, PT/INR Consultants: Dr. Guerrero Orthopedic Surgery,? care and involvement in the patient?s care is appreciated.? This has been completed. Dispo: Unknown at this time. Need wound care plan, stability of hemoglobin with re-initiation of rivaroxaban and aspirin and clopidogrel prior to discharge. Code status: Full code as discussed with the patient who identifies his son, Talon his surrogate and POA. Time Spent With Patient Critical Care time: I spent a total of [] minutes of critical care time on this patient's care today; this time is exclusive of procedural time. Quality VTE Deep Vein Thrombosis/Pulmonary Embolism Present on Admission: No
--- NOTE | 2022-05-29 12:05 | PC.NURSE ---
Addendum entered by Sonny Horvath R.N. 05/29/22 16:38: BS at 1645 118, no humalog given. Addendum entered by Sonny Horvath R.N. 05/29/22 12:27: RN changed L leg dressing. Dr was at bedside to observe wound. L leg swollen 2+ edema to inside of knee. Area is open in area, with 3 in black blood coloring, with multiple small wounds around area. One area with small pustules. Wound was cleansed with NS, 3 telfa applied with kurlex wrap and paper taped. Original Note: Pt blood sugar was 94 at 0745 and 115 at 1200, no humalog given at each time. Pt still stating 9/10 pain with tylenol and tramadol given.
[2022-05-29] MEDS: TORSEMIDE 10 MG TABLET 20 MG PO (16:45)
[2022-05-29] MEDS: ATORVASTATIN 20 MG TABLET 40 MG PO (20:11)
[2022-05-29] MEDS: carvediloL 12.5 MG TABLET 25 MG PO (20:12)
[2022-05-29] MEDS: VANCOMYCIN 1,500 MG/300 ML PIGGYBACK 200 MG IV (21:36)
[2022-05-30] VITALS (8 sets, daily range): BP systolic 97–124; BP diastolic 40–58; PULSE 57–71; RESP 15–18; TEMP 36.3–36.7; O2SAT 93–96
[2022-05-30] MEDS: TRAMADOL 50 MG TABLET PO ×4 (01:17→16:53)
[2022-05-30 05:43] LABS: Add Manual Diff / Slide Review NO; Basophils Absolute Auto 0 /uL (0-100); Basophils Percent Auto 0.6 % (0-2); Eosinophils Absolute Auto 200 /uL (0-450); Eosinophils Percent Auto 3.4 % (2-4); Hematocrit 26.2 % (41-53); Hemoglobin 8.6 g/dL (13.5-17.5); Lymphocytes Absolute Auto 800 /uL (1100-4500); Lymphocytes Percent Auto 15.8 % (25-40); Mean Corpuscular HGB Conc 32.8 % (30-36); Mean Corpuscular Hemoglobin 25.9 PG (26-34); Mean Corpuscular Volume 78.8 fL (80-100); Monocytes Absolute Auto 600 /uL (0-900); Neutrophils Absolute Auto 3300 /uL (1500-7000); Neutrophils Percent Auto 68.2 % (50-75); Platelet Count 164 X10^3/uL (150-400); Red Blood Cell Count 3.33 X10^6/uL (4.5-5.9); Red Cell Distribution Width 23.6 % (11.6-14.8); White Blood Cell Count 4.9 X10^3/uL (4.5-11.0)
[2022-05-30 05:54] LABS: Alanine Aminotransferase 16 IU/L (<50); Albumin 3.3 g/dL (3.5-5.0); Albumin Globulin Ratio 0.9 (1.0-2.8); Alkaline Phosphatase 119 U/L (38-126); Aspartate Aminotransferase 22 IU/L (17-59); BUN Creatinine Ratio 25.2 (6-22); Bilirubin Total 1.4 mg/dL (0.2-1.3); Blood Urea Nitrogen 51 mg/dL (9-20); Calcium 8.4 mg/dL (8.4-10.2); Carbon Dioxide 27 mmol/L (22-32); Chloride 98 mmol/L (98-107); Estimated Glomerular Filt Rate 34 mL/min (>60); Globulin 3.5 g/dL (1.7-4.1); Glucose 114 mg/dL (80-110); HEMOLYSIS < 15 (0-50); Potassium 3.8 mmol/L (3.4-5.1); Sodium 133 mmol/L (137-145); Total Protein 6.8 g/dL (6.3-8.2)
[2022-05-30 06:05] LABS: NT-proBNP (BNP-Adult 18+) 5570 pg/mL (<450); Troponin I 0.029 ng/mL (0.01-0.034)
[2022-05-30 06:25] LABS: Anisocytosis 3+
[2022-05-30] MEDS: PANTOPRAZOLE DR 20 MG TABLET PO ×2 (06:34→20:48)
[2022-05-30] MEDS: carvediloL 12.5 MG TABLET 25 MG PO (08:14)
[2022-05-30] MEDS: CHOLECALCIFEROL (VITAMIN D3) 1,000 UNIT TABLET 1000 UNIT PO (08:15)
[2022-05-30] MEDS: DULOXETINE 30 MG CAPSULE 90 MG PO (08:15)
[2022-05-30] MEDS: FUROSEMIDE 40 MG TABLET PO (08:19)
[2022-05-30] MEDS: TORSEMIDE 10 MG TABLET 20 MG PO ×2 (08:22→16:53)
--- NOTE | 2022-05-30 11:50 | PC.RNWOUND ---
Left Medial Knee Patient resting in bed, when asked about history of leg wound patient says, I fell is all I know, and then this happened. Patient is able to lift leg and extend knee, but says it hurts. There is a 5.5 x 7.5cm area of what appears to be eschar/developing eschar surrounded by 15 x 15cm of purple ecchymosis. There is small intact single vesicle adjacent to the wound and a 1x1cm partial-thickness open area, adjacent to the wound medially. There is no active drainage noted to the wound and no drainage on the removed dressing, no malodor. A foam dressing is placed to the wound for protection, secured gently with conforming gauze. My recommendation would be for this patient to have continue with bordered foam dressing changes as wound evolves and to follow up at wound healing center at their first available opening. Left arm abrasion is cleansed with saline and dressed with bordered foam dressing. This area has multiple areas of dried crust/scabs appearing as road rash, Arm is gently cleansed and moisturizer is applied. Left medial dorsal foot has a 1x2cm area of dry, adherent exudate/crust. This remains even after cleansing with saline gauze. Left pedal pulses intact.
--- NOTE | 2022-05-30 13:53 | PT.IPTN ---
Current Diagnoses Acute posthemorrhagic anemia (05/28/22) alf (current) use of anticoagulants (05/28/22) Physical Therapy Treatment Note M2 PT-IP Current Condition Start: 05/28/22 10:58 Freq: NEEDED Status: Active Protocol: Document 05/28/22 10:50 DLM (Rec: 05/28/22 11:27 DLM [id number]) Physical Therapy Current Condition Current Condition Evaluation Date 05/28/22 Treatment Diagnosis left LE hematoma, impaired mobility and gait Onset Date 05/28/22 M3 PT-IP Subjective Start: 05/28/22 10:58 Freq: NEEDED Status: Active Protocol: Document 05/30/22 13:33 KS (Rec: 05/30/22 14:27 KS [id number]) Subjective Physical Therapy Visit Type Type Treatment Note Visit Start Time 13:33 Visit Stop Time 13:53 Total Visit Minutes 20 Number of DIESEL DINKEY OPERATOR Visits 2 Physical Therapy Visit Comments Patient Comments Pt agreeable to ambulate. M4 PT-IP Mobility and Gait Start: 05/28/22 10:58 Freq: NEEDED Status: Active Protocol: Document 05/30/22 13:33 KS (Rec: 05/30/22 14:27 KS [id number]) PT-Bed Mobility Assessment Supine to Sit Supine to Sit Contact Guard Assistance, Minimal Assistance Scooting Scooting to Edge of Bed Contact Guard Assistance PT-Transfer Assessment Sit to and From Stand Sit to and from Stand Contact Guard Assistance,1 Person Assistance,Use of Upper Extremities Equipment Transfer Assistive Device Gait Belt,Front Wheeled Walker Transfers Transfer Destination Chair Transfer Technique Pt ambulated Transfer Ability Level of Assist Minimal Assistance,Use of Upper Extremities Comments Mobility Comments Pt in bed upon arrival and agreeable to ambulate and transfer to chair. CGA to Min A for sup<>sit, CGA for scooting EOB. Pt able to maintain seated balance, c/o L knee pain w/ mobility. Pt CGA for sit<>stand w/ FWW w/ cues for safety and hand placement . Pt barely WB on LLE during sit<>stand due to high level of pain. Pt ambulated ~5 ft to chair w/ FWW but refused further ambulation stating i can barely stand on my left leg d/t pain. Pt requested to sit in chair. Able to complete ankle pumps, SLR, and glute sets. Pt left in chair w/ all needs in reach. Condom catheter detached RN and ENTRY LEVEL ACCOUNTANT aware. Gait Assessment Gait Gait Assistance Required: Contact Guard Assist,1 Person Assist Distance (Feet) 5 Assistive Devices Assistive Device Gait Belt,Front Wheeled Walker Gait Deviations General Gait Pattern Antalgic,Decreased Stride Length,Decreased Feet Clearance,Flexed Trunk Factors Limiting Gait Function Factors Limiting Gait Function Decreased Activity Tolerance, Decreased Strength,Difficulty Following Directions, Incoordination,Limited Range of Motion,Pain,Poor Balance, Poor Safety Awareness Comments Gait Comments Pt only able to tolerate ambulation from bed to chair due to LLE pain. States he has 4WW and electric w/c at home. Stair Climbing Assessment Comments Stair Climbing Comments Did not assess. No stairs at home. PT-Balance Assessment Sitting Balance and Reactions Static Sitting Balance Ability Normal Dynamic Sitting Balance Ability Normal Standing Balance and Reactions Static Standing Balance Ability Fair Dynamic Standing Balance Ability Fair Device Used FWW M5 PT-IP Objective Assessments Start: 05/28/22 10:58 Freq: NEEDED Status: Active Protocol: Document 05/28/22 10:50 DLM (Rec: 05/28/22 11:27 DLM [id number]) Orientation Orientation/Cognition Level of Alertness Alert Orientation Name,Birthday,Place,Situation Language Function Ability No Deficits Noted Safety Awareness Understands Safety Issues Memory Description Short Term Impaired Comments often closes eyes but not sleeping Gross Range of Motion Upper Extremity ROM Assessment Within Functional Limits Lower Extremity ROM Assessment Left Impaired Impairments tolerated about 80 degrees knee flexion seated edge of bed with pain, all left knee movements painful as well as left DF/PF Strength Upper Extremity Strength Assessment Within Functional Limits Lower Extremity Strength Assessment Left Impaired Hip able to do straight leg raise off bed Knee too painful and bruised for testing, able to move actively Ankle moving actively but painful Comments Strength Comments left knee/calf area pain limits ROM and strength, significant bruising noted in knee area up into thigh, dressing over knee and calf areas Coordination Assessment Gross Coordination Gross Coordination WNL Sensation Assessment Sensation Gross Sensation Right LE Impaired,Left LE Impaired Sensation Description Numbness,Tingling Comments Sensation Comments hx numbness/tingling in feet Muscle Tone Muscle Tone WNL Yes M6 PT-IP Treatment Start: 05/28/22 10:58 Freq: NEEDED Status: Active Protocol: Document 05/30/22 13:33 KS (Rec: 05/30/22 14:27 KS [id number]) Physical Therapy Treatment Exercises Exercises Ankle Pumps,Gluteal Sets, Straight Leg Raises Education Education Provided Safety Other Treatments Other Treatment Performed educated pt to have staff assist for mobility to avoid falls, he agrees to use call light M7 PT-IP Assessment and Plan Start: 05/28/22 10:58 Freq: NEEDED Status: Active Protocol: Document 05/30/22 13:33 KS (Rec: 05/30/22 14:27 KS [id number]) PT Summary Assessment and Plan Potential Rehabilitation Potential Good Summary Impairments Pain,ROM,Strength,Balance, Sensation,Cognition,Bed Mobility,Transfers,Gait, Activity Tolerance Progress Towards Goals Slow Progress due to Pain,Slow Progress due to Activity Tolerance Assessment Summary Pt slow to progress mostly due to pain, but pt also weak and w/ poor safety awareness. He requires cues for safety and sequencing and was only able to tolerate ~5 ft ambulation w / FWW due to pain in L knee. Pt avoids equal WB on LLE due to pain. Pt states he lives w/ son and DIL who can assist him and has no stairs to enter . Also states he has electric w/c and 4WW. Will continue to assess progress, at this time pt needing 24/7 assist if he goes home as well as HH. Goals Bed Mobility Goal Independent Transfer Goal Standby Assistance,Front Wheeled Walker Gait Goal Standby Assistance,Front Wheel Walker Gait Distance 50 feet Other Goals up and down one step with FWW and CG assist Days to Meet Goals 5 Frequency of Treatment Frequency Of Treatment Once a Day Treatment Plan Physical Therapy Treatment Plan Bed Mobility Training,Transfer Training,Gait Training, Therapeutic Exercise,Balance Retraining,Discharge Planning, Hot or Cold Pack,Neuromuscular Re-ed Other Recommendations and Next Treatment progress gait with caution to Focus manage bleeding in left knee area with known hematoma Precautions Other Precautions cardiac history, no weight bearing restrictions ordered at his time Recommendations To Nursing Amount of Assist Needed 1 Person Assist Discharge Recommendations PT Discharge Recommendations Home with 24/7 Assist Available,Home Health,Home vs SNF Other Discharge Recommendations will need to clarify if family able to care for him at home, recommend home health if he goes home Transportation Needs at Discharge Private Vehicle
--- NOTE | 2022-05-30 16:17 | P.PN_ITS ---
Subjective Subjective Date Patient Seen: 05/30/22 Interval history: No new complaints. States he is feeling better. He mobilize more. Reassured him that his wound left knee does not look infected as for wound care nurse. Will improve and hospital and then can follow up with wound care physician as an outpatient. Exam Vital Signs (past 8 hours): - 05/30/22 11:32 Temperature 97.7 F Pulse Rate 65 Respiratory Rate 18 Blood Pressure 105/45 L Pulse Oximetry 93 Oxygen Flow Rate 0 Oxygen Delivery Method Room Air Oxygen Flow Rate 0 Narrative Exam Narrative: Oriented to time place and person.? Appears in no acute medical distress. HEENT:? Pupils equal reaction to light.? Extraocular movements normal.? Neck is supple.? Neck nodes are nontender nonpalpable.? Head is normocephalic.? Trachea is midline. Cardiovascular:? 1/6 systolic murmur.? S1-S2.? Peripheral pulses equal bilaterally.? No pedal edema. Respiratory:? Adequate air entry throughout the lung zamarripa, there are no wheezes or crackles. Gastrointestinal:? Bowel sounds normal.? Abdomen soft.? Nontender. Musculoskeletal:? Able to move all extremities volitionally.? Beginning to mobilize more with physical therapy.? No localized strength deficits. Skin:? Abrasions left foot.? Wound left knee with hematoma currently dressed.? Soft tissues abrasions right arm dressed. Neuro:? Normal sensation of all extremities.? Oriented x3. Psych:? Normal mood and affect. Objective Labs Result Diagrams: 05/30/22 05:08 05/30/22 05:08 Labs: Laboratory Results - last 24 hr 05/30/22 05/30/22 05:08 05:08 WBC 4.9 RBC 3.33 L Hgb 8.6 L Hct 26.2 L MCV 78.8 L MCH 25.9 L MCHC 32.8 RDW 23.6 H Plt Count 164 Neut % (Auto) 68.2 Lymph % (Auto) 15.8 L [place] % (Auto) 12.0 Eos % (Auto) 3.4 Baso % (Auto) 0.6 Neut # (Auto) 3300 Lymph # (Auto) 800 L [place] # (Auto) 600 Eos # (Auto) 200 Baso # (Auto) 0 RBC Morphology See below Anisocytosis 3+ H Sodium 133 L Potassium 3.8 Chloride 98 Carbon Dioxide 27 BUN 51 H Creatinine 2.02 H Estimated GFR 34 L BUN/Creatinine Ratio 25.2 H Glucose 114 H Calcium 8.4 Total Bilirubin 1.4 H AST 22 ALT 16 Alkaline Phosphatase 119 Troponin I 0.029 NT-Pro-B Natriuret Pep 5570 H Total Protein 6.8 Albumin 3.3 L Globulin 3.5 Albumin/Globulin Ratio 0.9 L PFSH Medical History Anticoagulated Atrial fibrillation Coronary artery disease Diabetes Dyslipidemia Hypertension Sleep apnea Surgical History Hx of cholecystectomy 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 Acute blood loss anemia likely secondary to over coagulation with what appears to be triple anti-platelet therapy, present on admission.? Causing hematoma left leg.? With skin compromise over the hematoma will have wound care evaluate.? Consult completed by wound care nurse. Continue current treatment. Patient to follow-up with e commerce specialist as an outpatient. Appears to have no infection and is proceeding with healing. Patient's rivaroxaban, aspirin and clopidogrel are being held. No evidence of further bleeding. Hemoglobin stable. Restart aspirin and rivaroxaban tomorrow. Patient received 2 units PRBC in the emergency department increasing his H&H from 6.7-7.9 and 20.8-24.5 respectively.? Today hemoglobin stable at 8.1.? This is stable.? If remains consistently stable can reinitiate rivaroxaban, aspirin and clopidogrel. 2. Acute kidney injury likely secondary to blood loss anemia, present on admission Patient was fluid resuscitated in the emergency department 2 L He is currently saline lock due to volume overload Closely monitor renal function and hold nephrotoxic medications (Lisinopril).? GFR improved to 34 today.? Renal function is improving.? Follow labs. 3. Acute decompensated heart failure with reduced ejection fraction, present on admission In the ER, he received IV Lasix 80 mg in addition to his home oral dose of hydrochlorothiazide and torsemide.? Will increase daily furosemide to 40 mg daily.? Hydrochlorothiazide is not been ordered.? Will add torsemide. Patient's proBNP was almost 7200.? Improved today at 5570. Patient is currently recovering from biventricular heart catheterization [place] Hand is Dr. Joyce in [place] has been notified of admission. Continue carvedilol 25 mg p.o. b.i.d., patient receives in 12.5 mg tablets 4. Probable left knee cellulitis, acute, present on admission Patient currently being treated with vancomycin.? This is essentially prophylact ic. Can discontinue. Orthopedic surgery has been consulted and seen the patient. Wound care consulted due to compromised skin at site of hematoma left leg.? Has not been evaluated yet.? Would be best to have consult and treatment plan prior to discharge.? Needed plan for care. 5. Coronary artery disease, chronic Continue home dose of atorvastatin 40 mg p.o. at bedtime 6. Diabetes type 2, appears to be well controlled ?A1c is 6.5 He will receive his home dose of Lantus 30 units b.i.d. Metformin remains on hold due to renal function. Low-dose correctional scale insulin and adjust as needed Carb controlled diet with a.c. HS glucose checks 7. Mobilization.? Beginning to mobilize with physical therapy.? Continue with treatment.? VTE Prophylaxis: Wells risk score 1.5.? Pharmacological VTE prophylaxis is contraindicated in the setting of active bleeding will do SCD? Patient is? inpatient service due to the severity of disease, risks of further disease progression and this stay is expected to exceed 2 midnights. FEN: IV fluids: saline lock, diet: carb controlled diet, labs: CBC, C/BMP, liver enzymes, Mag, PT/INR Consultants: Dr. Guerrero Orthopedic Surgery,? care and involvement in the patient?s care is appreciated.? This has been completed. Wound care nurse consult completed. Dispo: Unknown at this time.? Need wound care plan, stability of hemoglobin with re-initiation of rivaroxaban and aspirin and clopidogrel prior to discharge. Code status: Full code as discussed with the patient who identifies his son, Talon his surrogate and POA. Time Spent With Patient Critical Care time: I spent a total of [] minutes of critical care time on this patient's care today; this time is exclusive of procedural time. Quality VTE Deep Vein Thrombosis/Pulmonary Embolism Present on Admission: No
[2022-05-30] MEDS: ACETAMINOPHEN 325 MG TABLET 650 MG PO (16:53)
[2022-05-30] MEDS: INSULIN LISPRO 100 UNIT/ML 3ML VIAL SUBCUT (16:55)
[2022-05-30] MEDS: ATORVASTATIN 20 MG TABLET 40 MG PO (20:48)
[2022-05-30] MEDS: INSULIN GLARGINE 100 UNIT/ML 3ML PEN 30 UNIT SUBCUT (20:49)
[2022-05-31] VITALS (7 sets, daily range): BP systolic 95–157; BP diastolic 49–71; PULSE 61–78; RESP 16–20; TEMP 36.2–36.8; O2SAT 95–100
--- NOTE | 2022-05-31 03:25 | PC.NURSE ---
Pt is Axox4, 1 person assistance and cooperative. VSS, pt denies pain. Pt is on tele and it shows SR. BG-129 at bedtime. Pt is eating well and drinking well. No other change. Continue monitor.
[2022-05-31 05:56] LABS: Add Manual Diff / Slide Review NO; Basophils Absolute Auto 0 /uL (0-100); Basophils Percent Auto 0.4 % (0-2); Eosinophils Absolute Auto 100 /uL (0-450); Eosinophils Percent Auto 2.1 % (2-4); Hematocrit 30.1 % (41-53); Hemoglobin 9.7 g/dL (13.5-17.5); Lymphocytes Absolute Auto 700 /uL (1100-4500); Lymphocytes Percent Auto 13.2 % (25-40); Mean Corpuscular HGB Conc 32.2 % (30-36); Mean Corpuscular Hemoglobin 25.6 PG (26-34); Mean Corpuscular Volume 79.5 fL (80-100); Monocytes Absolute Auto 500 /uL (0-900); Monocytes Percent Auto 9.5 % (3-14); Neutrophils Absolute Auto 3800 /uL (1500-7000); Neutrophils Percent Auto 74.8 % (50-75); Platelet Count 173 X10^3/uL (150-400); Red Blood Cell Count 3.79 X10^6/uL (4.5-5.9); Red Cell Distribution Width 23.4 % (11.6-14.8); White Blood Cell Count 5.1 X10^3/uL (4.5-11.0)
[2022-05-31] MEDS: PANTOPRAZOLE DR 20 MG TABLET PO ×2 (06:01→20:46)
[2022-05-31] MEDS: TRAMADOL 50 MG TABLET PO ×4 (06:02→23:27)
[2022-05-31 06:10] LABS: Alanine Aminotransferase 18 IU/L (<50); Albumin 3.4 g/dL (3.5-5.0); Albumin Globulin Ratio 0.9 (1.0-2.8); Alkaline Phosphatase 121 U/L (38-126); Aspartate Aminotransferase 27 IU/L (17-59); BUN Creatinine Ratio 25.7 (6-22); Bilirubin Total 1.5 mg/dL (0.2-1.3); Blood Urea Nitrogen 48 mg/dL (9-20); Calcium 8.5 mg/dL (8.4-10.2); Carbon Dioxide 26 mmol/L (22-32); Chloride 97 mmol/L (98-107); Estimated Glomerular Filt Rate 37 mL/min (>60); Glucose 139 mg/dL (80-110); HEMOLYSIS < 15 (0-50); Potassium 3.7 mmol/L (3.4-5.1); Sodium 135 mmol/L (137-145); Total Protein 7.4 g/dL (6.3-8.2)
[2022-05-31 06:45] LABS: Anisocytosis 3+
[2022-05-31] MEDS: CHOLECALCIFEROL (VITAMIN D3) 1,000 UNIT TABLET 1000 UNIT PO (08:34)
[2022-05-31] MEDS: RIVAROXABAN 10 MG TABLET 15 MG PO (08:34)
[2022-05-31] MEDS: FUROSEMIDE 40 MG TABLET PO (08:34)
[2022-05-31] MEDS: carvediloL 12.5 MG TABLET 25 MG PO ×2 (08:39→20:46)
[2022-05-31] MEDS: DULOXETINE 30 MG CAPSULE 90 MG PO (08:41)
[2022-05-31] MEDS: ASPIRIN EC 81 MG TABLET PO (08:41)
[2022-05-31] MEDS: ACETAMINOPHEN 325 MG TABLET 650 MG PO ×3 (08:45→23:27)
[2022-05-31] MEDS: INSULIN LISPRO 100 UNIT/ML 3ML VIAL SUBCUT ×4 (09:17→20:48)
[2022-05-31] MEDS: TORSEMIDE 10 MG TABLET 20 MG PO ×2 (09:17→16:31)
--- NOTE | 2022-05-31 09:39 | PT.IPTN ---
Current Diagnoses Acute posthemorrhagic anemia (05/28/22) custodial (current) use of anticoagulants (05/28/22) Physical Therapy Treatment Note M2 PT-IP Current Condition Start: 05/28/22 10:58 Freq: NEEDED Status: Active Protocol: Document 05/28/22 10:50 DLM (Rec: 05/28/22 11:27 DLM [id number]) Physical Therapy Current Condition Current Condition Evaluation Date 05/28/22 Treatment Diagnosis left LE hematoma, impaired mobility and gait Onset Date 05/28/22 M3 PT-IP Subjective Start: 05/28/22 10:58 Freq: NEEDED Status: Active Protocol: Document 05/31/22 09:23 KS (Rec: 05/31/22 12:40 KS [id number]) Subjective Physical Therapy Visit Type Type Treatment Note Visit Start Time 09:23 Visit Stop Time 09:39 Total Visit Minutes 16 Number of DEVELOPMENT DISABILITY SPECIALIST Visits 3 Physical Therapy Visit Comments Patient Comments Pt agreeable to ambulate. M4 PT-IP Mobility and Gait Start: 05/28/22 10:58 Freq: NEEDED Status: Active Protocol: Document 05/31/22 09:23 KS (Rec: 05/31/22 12:40 KS [id number]) PT-Bed Mobility Assessment Supine to Sit Supine to Sit Standby Assistance,Contact Guard Assistance,1 Person Assistance Sit to Supine Sit to Supine Contact Guard Assistance Scooting Scooting to Edge of Bed Contact Guard Assistance PT-Transfer Assessment Sit to and From Stand Sit to and from Stand Contact Guard Assistance,1 Person Assistance,Use of Upper Extremities Equipment Transfer Assistive Device Gait Belt,Front Wheeled Walker Transfers Transfer Destination Bed Transfer Technique Pt ambulated Transfer Ability Level of Assist Contact Guard Assistance,1 Person Assistance,Use of Upper Extremities Comments Mobility Comments Pt in bed upon arrival and agreeable to increase ambulation distance. SBA to CGA for bed mobility, CGA for sit<>stand w/ FWW. Pt ambulated ~15 ft w/ FWW CGA and reported slight dizziness. Pt sat down and BP: 89/43. Instructed pt to lay down, BP: 100/44 and dizziness subsided . Pt left in bed w/ all needs in reach. Gait Assessment Gait Gait Assistance Required: Contact Guard Assist,1 Person Assist Distance (Feet) 15 Assistive Devices Assistive Device Gait Belt,Front Wheeled Walker Gait Deviations General Gait Pattern Antalgic,Decreased Stride Length,Decreased Feet Clearance,Flexed Trunk Factors Limiting Gait Function Factors Limiting Gait Function Decreased Activity Tolerance, Decreased Strength,Difficulty Following Directions, Incoordination,Limited Range of Motion,Pain,Poor Balance, Poor Safety Awareness Comments Gait Comments Pt able to increase ambulation distance but became dizzy w/ low BP. Stair Climbing Assessment Comments Stair Climbing Comments Did not assess. No stairs at home. PT-Balance Assessment Sitting Balance and Reactions Static Sitting Balance Ability Normal Dynamic Sitting Balance Ability Normal Standing Balance and Reactions Static Standing Balance Ability Fair Dynamic Standing Balance Ability Fair Device Used FWW M5 PT-IP Objective Assessments Start: 05/28/22 10:58 Freq: NEEDED Status: Active Protocol: Document 05/28/22 10:50 DLM (Rec: 05/28/22 11:27 DLM [id number]) Orientation Orientation/Cognition Level of Alertness Alert Orientation Name,Birthday,Place,Situation Language Function Ability No Deficits Noted Safety Awareness Understands Safety Issues Memory Description Short Term Impaired Comments often closes eyes but not sleeping Gross Range of Motion Upper Extremity ROM Assessment Within Functional Limits Lower Extremity ROM Assessment Left Impaired Impairments tolerated about 80 degrees knee flexion seated edge of bed with pain, all left knee movements painful as well as left DF/PF Strength Upper Extremity Strength Assessment Within Functional Limits Lower Extremity Strength Assessment Left Impaired Hip able to do straight leg raise off bed Knee too painful and bruised for testing, able to move actively Ankle moving actively but painful Comments Strength Comments left knee/calf area pain limits ROM and strength, significant bruising noted in knee area up into thigh, dressing over knee and calf areas Coordination Assessment Gross Coordination Gross Coordination WNL Sensation Assessment Sensation Gross Sensation Right LE Impaired,Left LE Impaired Sensation Description Numbness,Tingling Comments Sensation Comments hx numbness/tingling in feet Muscle Tone Muscle Tone WNL Yes M6 PT-IP Treatment Start: 05/28/22 10:58 Freq: NEEDED Status: Active Protocol: Document 05/31/22 09:23 KS (Rec: 05/31/22 12:40 KS [id number]) Physical Therapy Treatment Exercises Exercises Ankle Pumps,Gluteal Sets Education Education Provided Safety Other Treatments Other Treatment Performed educated pt to have staff assist for mobility to avoid falls, he agrees to use call light M7 PT-IP Assessment and Plan Start: 05/28/22 10:58 Freq: NEEDED Status: Active Protocol: Document 05/31/22 09:23 KS (Rec: 05/31/22 12:40 KS [id number]) PT Summary Assessment and Plan Potential Rehabilitation Potential Good Summary Impairments Pain,ROM,Strength,Balance, Sensation,Cognition,Bed Mobility,Transfers,Gait, Activity Tolerance Progress Towards Goals Slow Progress due to Pain,Slow Progress due to Activity Tolerance Assessment Summary Pt limited by symptomatic low BP today, however was able to slightly increase ambulation distance. Continues to avoid full WB on LLE due to pain. Pt states he lives w/ son and DIL who can assist him and has no stairs to enter. Also states he has electric w/c and 4WW. Will continue to assess progress, at this time pt needing 24/7 assist if he goes home as well as HH. Goals Bed Mobility Goal Independent Transfer Goal Standby Assistance,Front Wheeled Walker Gait Goal Standby Assistance,Front Wheel Walker Gait Distance 50 feet Other Goals up and down one step with FWW and CG assist Days to Meet Goals 5 Frequency of Treatment Frequency Of Treatment Once a Day Treatment Plan Physical Therapy Treatment Plan Bed Mobility Training,Transfer Training,Gait Training, Therapeutic Exercise,Balance Retraining,Discharge Planning, Hot or Cold Pack,Neuromuscular Re-ed Other Recommendations and Next Treatment progress gait with caution to Focus manage bleeding in left knee area with known hematoma Precautions Other Precautions cardiac history, no weight bearing restrictions ordered at his time Recommendations To Nursing Amount of Assist Needed 1 Person Assist Discharge Recommendations PT Discharge Recommendations Home with 24/7 Assist Available,Home Health,Home vs SNF Other Discharge Recommendations will need to clarify if family able to care for him at home, recommend home health if he goes home Transportation Needs at Discharge Private Vehicle
--- NOTE | 2022-05-31 12:51 | P.PN_ITS ---
Exam Vital Signs (past 8 hours): - 05/31/22 08:00 05/31/22 08:39 05/31/22 11:50 Temperature 98.2 F 98.0 F Pulse Rate 78 75 69 Respiratory Rate 18 18 Blood Pressure 102/52 L 102/52 L 95/49 L Pulse Oximetry 95 96 Oxygen Flow Rate 0 0 Oxygen Delivery Method Room Air Oxygen Flow Rate 0 Objective Labs Result Diagrams: 05/31/22 05:45 05/31/22 05:45 Labs: Laboratory Results - last 24 hr 05/31/22 05/31/22 05:45 05:45 WBC 5.1 RBC 3.79 L Hgb 9.7 L Hct 30.1 L MCV 79.5 L MCH 25.6 L MCHC 32.2 RDW 23.4 H Plt Count 173 Neut % (Auto) 74.8 Lymph % (Auto) 13.2 L Roosevelt % (Auto) 9.5 Eos % (Auto) 2.1 Baso % (Auto) 0.4 Neut # (Auto) 3800 Lymph # (Auto) 700 L Roosevelt # (Auto) 500 Eos # (Auto) 100 Baso # (Auto) 0 RBC Morphology See below Anisocytosis 3+ H Sodium 135 L Potassium 3.7 Chloride 97 L Carbon Dioxide 26 BUN 48 H Creatinine 1.87 H Estimated GFR 37 L BUN/Creatinine Ratio 25.7 H Glucose 139 H Calcium 8.5 Total Bilirubin 1.5 H AST 27 ALT 18 Alkaline Phosphatase 121 Total Protein 7.4 Albumin 3.4 L Globulin 4.0 Albumin/Globulin Ratio 0.9 L PFSH Medical History Anticoagulated Atrial fibrillation Coronary artery disease Diabetes Dyslipidemia Hypertension Sleep apnea Surgical History Hx of cholecystectomy 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 Acute blood loss anemia likely secondary to over coagulation with what appears to be triple anti-platelet therapy, present on admission.? Causing he matoma left leg.? With skin compromise over the hematoma will have wound care evaluate.? Consult completed by wound care nurse.? Continue current treatment.? Patient to follow-up with biomedical equipment specialist as an outpatient.? Appears to have no infection and is proceeding with healing. Patient's rivaroxaban, aspirin and clopidogrel are being held.? No evidence of further bleeding.? Hemoglobin stable.? Restart aspirin and rivaroxaban tomorrow. Patient received 2 units PRBC in the emergency department increasing his H&H from 6.7-7.9 and 20.8-24.5 respectively.? Today hemoglobin stable at 8.1.? This is stable.? Rivaroxaban and aspirin has been re-initiated. 2. Acute kidney injury likely secondary to blood loss anemia, present on admission Patient was fluid resuscitated in the emergency department 2 L He is currently saline lock due to volume overload Closely monitor renal function and hold nephrotoxic medications (Lisinopril).? GFR improved to 37 today.? Renal function is improving again today.? Follow labs. 3. Acute decompensated heart failure with reduced ejection fraction, present on admission In the ER, he received IV Lasix 80 mg in addition to his home oral dose of hydrochlorothiazide and torsemide.? Will increase daily furosemide to 40 mg daily.? Hydrochlorothiazide is not been ordered.? Will add torsemide. Patient's proBNP was almost 7200.? Improved yesterday at 5570. Patient is currently recovering from biventricular heart catheterization Housekeeping Room Inspector is Dr. Joyce in [place] has been notified of admission. Continue carvedilol 25 mg p.o. b.i.d., patient receives in 12.5 mg tablets 4. Probable left knee cellulitis, acute, present on admission Initially vancomycin that was largely prophylactic since no persistent signs of infection. This has been discontinued. Orthopedic surgery has been consulted and seen the patient. Wound care consulted due to compromised skin at site of hematoma left leg.? Has not been evaluated yet.? Wound care nurse has seen the patient. Recommends follow-up with biomedical equipment specialist after discharge. 5. Coronary artery disease, chronic Continue home dose of atorvastatin 40 mg p.o. at bedtime 6. Diabetes type 2, appears to be well controlled ?A1c is 6.5 He will receive his home dose of Lantus 30 units b.i.d. Metformin remains on hold due to renal function. Low-dose correctional scale insulin and adjust as needed Carb controlled diet with a.c. HS glucose checks 7. Mobilization.? Beginning to mobilize with physical therapy.? Continue with treatment.? 8. Urinary tract infection with Sheridan glabrata. Diflucan 400 mg daily for 14 days. VTE Prophylaxis: Wells risk score 1.5.? Pharmacological VTE prophylaxis is contraindicated in the setting of active bleeding will do SCD? Patient is? inpatient service due to the severity of disease, risks of further disease progression and this stay is expected to exceed 2 midnights. FEN: IV fluids: saline lock, diet: carb controlled diet Consultants: Dr. Guerrero Orthopedic Surgery,? care and involvement in the patient?s care is appreciated.? This has been completed.? Wound care nurse consult completed. Dispo: Unknown at this time.? Code status: Full code as discussed with the patient who identifies his son, Talon his surrogate and POA. Time Spent With Patient Critical Care time: I spent a total of [] minutes of critical care time on this patient's care today; this time is exclusive of procedural time. Quality VTE Deep Vein Thrombosis/Pulmonary Embolism Present on Admission: No
[2022-05-31] MEDS: FLUCONAZOLE 400 MG/200 ML PIGGYBACK 100 MG IV (13:55)
--- NOTE | 2022-05-31 18:53 | PC.NURSE ---
Day sift: ANCELMO Bran performing condom cath/donna care and small abrasion present on the left scrotum in area the condom secured to skin. No s/s of infection seen. Condom cath removed and Pt OOB to BR to void and attempt BM. 1 person assist w/ FWW. When Pt back in bed new condom cath will be applied.
[2022-05-31] MEDS: ATORVASTATIN 20 MG TABLET 40 MG PO (20:46)
[2022-05-31] MEDS: INSULIN GLARGINE 100 UNIT/ML 3ML PEN 30 UNIT SUBCUT (20:50)
[2022-05-31] MEDS: SODIUM CHLORIDE 0.9% FLUSH 10 ML IV (20:52)
[2022-05-31 21:17] LABS: Vancomycin Trough 9.4 ug/mL (10-20)
[2022-06-01] MEDS: ACETAMINOPHEN 325 MG TABLET 650 MG PO ×3 (05:23→17:08)
[2022-06-01] MEDS: TRAMADOL 50 MG TABLET PO ×4 (05:24→23:31)
[2022-06-01 05:30] VITALS: BP 106/44; PULSE 63; RESP 14; TEMP 36.2; O2SAT 98
[2022-06-01 05:49] LABS: Alanine Aminotransferase 21 IU/L (<50); Albumin 3.2 g/dL (3.5-5.0); Albumin Globulin Ratio 0.8 (1.0-2.8); Alkaline Phosphatase 99 U/L (38-126); Aspartate Aminotransferase 36 IU/L (17-59); BUN Creatinine Ratio 28.5 (6-22); Basophils Absolute Auto 0 /uL (0-100); Basophils Percent Auto 0.4 % (0-2); Bilirubin Total 1.1 mg/dL (0.2-1.3); Blood Urea Nitrogen 57 mg/dL (9-20); Calcium 8.3 mg/dL (8.4-10.2); Carbon Dioxide 25 mmol/L (22-32); Chloride 99 mmol/L (98-107); Eosinophils Absolute Auto 200 /uL (0-450); Eosinophils Percent Auto 3.6 % (2-4); Estimated Glomerular Filt Rate 34 mL/min (>60); Globulin 3.8 g/dL (1.7-4.1); Glucose 90 mg/dL (80-110); HEMOLYSIS < 15 (0-50); Hematocrit 26.4 % (41-53); Hemoglobin 8.7 g/dL (13.5-17.5); Lymphocytes Absolute Auto 900 /uL (1100-4500); Lymphocytes Percent Auto 17.9 % (25-40); Mean Corpuscular HGB Conc 32.8 % (30-36); Mean Corpuscular Hemoglobin 25.8 PG (26-34); Mean Corpuscular Volume 78.5 fL (80-100); Monocytes Absolute Auto 500 /uL (0-900); Monocytes Percent Auto 10.1 % (3-14); Neutrophils Absolute Auto 3400 /uL (1500-7000); Platelet Count 181 X10^3/uL (150-400); Potassium 3.7 mmol/L (3.4-5.1); Red Blood Cell Count 3.37 X10^6/uL (4.5-5.9); Red Cell Distribution Width 23.7 % (11.6-14.8); Sodium 132 mmol/L (137-145)
[2022-06-01] MEDS: PANTOPRAZOLE DR 20 MG TABLET PO ×2 (06:04→20:47)
[2022-06-01 06:05] LABS: Add Manual Diff / Slide Review SLIDE REVIEW
[2022-06-01 07:10] LABS: Anisocytosis 3+
[2022-06-01 07:45] VITALS: BP 100/47; PULSE 65; RESP 18; TEMP 36.2; O2SAT 97
[2022-06-01] MEDS: DULOXETINE 30 MG CAPSULE 90 MG PO (08:47)
[2022-06-01 08:48] VITALS: PULSE 69
[2022-06-01] MEDS: ASPIRIN EC 81 MG TABLET PO (08:48)
[2022-06-01] MEDS: FUROSEMIDE 40 MG TABLET PO (08:48)
[2022-06-01] MEDS: carvediloL 12.5 MG TABLET 25 MG PO ×2 (08:48→20:44)
[2022-06-01] MEDS: RIVAROXABAN 10 MG TABLET 15 MG PO (08:49)
[2022-06-01] MEDS: SODIUM CHLORIDE 0.9% FLUSH 10 ML IV ×2 (08:50→20:42)
[2022-06-01] MEDS: CHOLECALCIFEROL (VITAMIN D3) 1,000 UNIT TABLET 1000 UNIT PO (08:52)
[2022-06-01] MEDS: TORSEMIDE 10 MG TABLET 20 MG PO (09:05)
--- NOTE | 2022-06-01 11:00 | PT.IPTN ---
Current Diagnoses Acute posthemorrhagic anemia (05/28/22) half-way (current) use of anticoagulants (05/28/22) Physical Therapy Treatment Note M2 PT-IP Current Condition Start: 05/28/22 10:58 Freq: NEEDED Status: Active Protocol: Document 05/28/22 10:50 DLM (Rec: 05/28/22 11:27 DLM [id number]) Physical Therapy Current Condition Current Condition Evaluation Date 05/28/22 Treatment Diagnosis left LE hematoma, impaired mobility and gait Onset Date 05/28/22 M3 PT-IP Subjective Start: 05/28/22 10:58 Freq: NEEDED Status: Active Protocol: Document 06/01/22 10:46 KS (Rec: 06/01/22 14:22 KS [id number]) Subjective Physical Therapy Visit Type Type Treatment Note Visit Start Time 10:46 Visit Stop Time 11:00 Total Visit Minutes 14 Number of MAGNETO ELECTRICIAN Visits 4 Physical Therapy Visit Comments Patient Comments Pt agreeable to ambulate. M4 PT-IP Mobility and Gait Start: 05/28/22 10:58 Freq: NEEDED Status: Active Protocol: Document 06/01/22 10:46 KS (Rec: 06/01/22 14:22 KS [id number]) PT-Bed Mobility Assessment Supine to Sit Supine to Sit Standby Assistance Sit to Supine Sit to Supine Standby Assistance Scooting Scooting to Edge of Bed Contact Guard Assistance PT-Transfer Assessment Sit to and From Stand Sit to and from Stand Contact Guard Assistance,1 Person Assistance,Use of Upper Extremities Equipment Transfer Assistive Device Gait Belt,Front Wheeled Walker Transfers Transfer Destination Bed Transfer Technique Sit<>stand Transfer Ability Level of Assist Contact Guard Assistance,1 Person Assistance,Use of Upper Extremities Comments Mobility Comments Pt in bed upon arrival and agreeable to ambulate. BP 112/ 49 in supine. SBA for sup<>sit , and CGA w/ cues for sit<> stand w/ FWW. Pt c/o increased pain in LLE when standing and unable to stand long enough for blood pressure reading. After sitting, pts BP 100/46. Pt requested to lay back down d/t leg pain and did so CGA. Gait Assessment Comments Gait Comments Unable today d/t pain. Stair Climbing Assessment Comments Stair Climbing Comments Did not assess. No stairs at home. PT-Balance Assessment Sitting Balance and Reactions Static Sitting Balance Ability Normal Dynamic Sitting Balance Ability Normal Standing Balance and Reactions Static Standing Balance Ability Fair Dynamic Standing Balance Ability Fair Device Used FWW M5 PT-IP Objective Assessments Start: 05/28/22 10:58 Freq: NEEDED Status: Active Protocol: Document 05/28/22 10:50 DLM (Rec: 05/28/22 11:27 DLM [id number]) Orientation Orientation/Cognition Level of Alertness Alert Orientation Name,Birthday,Place,Situation Language Function Ability No Deficits Noted Safety Awareness Understands Safety Issues Memory Description Short Term Impaired Comments often closes eyes but not sleeping Gross Range of Motion Upper Extremity ROM Assessment Within Functional Limits Lower Extremity ROM Assessment Left Impaired Impairments tolerated about 80 degrees knee flexion seated edge of bed with pain, all left knee movements painful as well as left DF/PF Strength Upper Extremity Strength Assessment Within Functional Limits Lower Extremity Strength Assessment Left Impaired Hip able to do straight leg raise off bed Knee too painful and bruised for testing, able to move actively Ankle moving actively but painful Comments Strength Comments left knee/calf area pain limits ROM and strength, significant bruising noted in knee area up into thigh, dressing over knee and calf areas Coordination Assessment Gross Coordination Gross Coordination WNL Sensation Assessment Sensation Gross Sensation Right LE Impaired,Left LE Impaired Sensation Description Numbness,Tingling Comments Sensation Comments hx numbness/tingling in feet Muscle Tone Muscle Tone WNL Yes M6 PT-IP Treatment Start: 05/28/22 10:58 Freq: NEEDED Status: Active Protocol: Document 06/01/22 10:46 KS (Rec: 06/01/22 14:22 KS [id number]) Physical Therapy Treatment Education Education Provided Safety Other Treatments Other Treatment Performed educated pt to have staff assist for mobility to avoid falls, he agrees to use call light M7 PT-IP Assessment and Plan Start: 05/28/22 10:58 Freq: NEEDED Status: Active Protocol: Document 06/01/22 10:46 KS (Rec: 06/01/22 14:22 KS [id number]) PT Summary Assessment and Plan Potential Rehabilitation Potential Good Summary Impairments Pain,ROM,Strength,Balance, Sensation,Cognition,Bed Mobility,Transfers,Gait, Activity Tolerance Progress Towards Goals Slow Progress due to Pain,Slow Progress due to Activity Tolerance Assessment Summary Pt limited by LLE pain today. Requires SBA for bed mobility, CGA for sit<>Stand w/ FWW. Could not tolerate standing long enough for BP reading and therefore unable to progress ambulation distance this date. Will continue to assess progress. Goals Bed Mobility Goal Independent Transfer Goal Standby Assistance,Front Wheeled Walker Gait Goal Standby Assistance,Front Wheel Walker Gait Distance 50 feet Other Goals up and down one step with FWW and CG assist Days to Meet Goals 5 Frequency of Treatment Frequency Of Treatment Once a Day Treatment Plan Physical Therapy Treatment Plan Bed Mobility Training,Transfer Training,Gait Training, Therapeutic Exercise,Balance Retraining,Discharge Planning, Hot or Cold Pack,Neuromuscular Re-ed Other Recommendations and Next Treatment progress gait with caution to Focus manage bleeding in left knee area with known hematoma Precautions Other Precautions cardiac history, no weight bearing restrictions ordered at his time Recommendations To Nursing Amount of Assist Needed 1 Person Assist Discharge Recommendations PT Discharge Recommendations Home with / Assist Available,Home Health,Home vs SNF Other Discharge Recommendations will need to clarify if family able to care for him at home, recommend home health if he goes home Transportation Needs at Discharge Private Vehicle
[2022-06-01] MEDS: INSULIN LISPRO 100 UNIT/ML 3ML VIAL SUBCUT ×2 (11:55→16:59)
--- NOTE | 2022-06-01 12:28 | P.PN_ITS ---
Subjective Subjective Date Patient Seen: 06/01/22 Time Patient Seen: 12:45 Interval history: No new complaints. Patient feels he is progressing with physical therapy. Nursing has no new complaints. Exam Vital Signs (past 8 hours): - 06/01/22 05:30 06/01/22 08:48 06/01/22 07:45 Temperature 97.2 F L 97.1 F L Pulse Rate 63 69 65 Respiratory Rate 14 18 Blood Pressure 106/44 L 100/47 L Pulse Oximetry 98 97 Oxygen Flow Rate 0 0 Oxygen Delivery Method Room Air Oxygen Flow Rate 0 Narrative Exam Narrative: Oriented to time place and person.? Appears in no acute medical distress. HEENT:? Pupils equal reaction to light.? Extraocular movements normal.? Neck is supple.? Neck nodes are nontender nonpalpable.? Head is normocephalic.? Trachea is midline. Cardiovascular:? 1/6 systolic murmur.? S1-S2.? Peripheral pulses equal bilaterally.? No pedal edema. Respiratory:? Adequate air entry throughout the lung zamarripa, there are no wheezes or crackles. Gastrointestinal:? Bowel sounds normal.? Abdomen soft.? Nontender. Musculoskeletal:? Able to move all extremities volitionally.? Beginning to mobilize more with physical therapy.? No localized strength deficits. Skin:? Abrasions left foot.? Wound left knee with hematoma currently dressed.? Soft tissues abrasions right arm dressed. Neuro:? Normal sensation of all extremities.? Oriented x3. Psych:? Normal mood and affect. Objective Labs Result Diagrams: 06/01/22 05:12 06/01/22 05:12 Labs: Laboratory Results - last 24 hr 05/31/22 06/01/22 06/01/22 20:10 05:12 05:12 WBC 5.0 RBC 3.37 L Hgb 8.7 L Hct 26.4 L MCV 78.5 L MCH 25.8 L MCHC 32.8 RDW 23.7 H Plt Count 181 Neut % (Auto) 68.0 Lymph % (Auto) 17.9 L Kendall % (Auto) 10.1 Eos % (Auto) 3.6 Baso % (Auto) 0.4 Neut # (Auto) 3400 Lymph # (Auto) 900 L Kend[place] # (Auto) 500 Eos # (Auto) 200 Baso # (Auto) 0 RBC Morphology See below Anisocytosis 3+ H Sodium 132 L Potassium 3.7 Chloride 99 Carbon Dioxide 25 BUN 57 H Creatinine 2.00 H Estimated GFR 34 L BUN/Creatinine Ratio 28.5 H Glucose 90 Calcium 8.3 L Total Bilirubin 1.1 AST 36 ALT 21 Alkaline Phosphatase 99 Total Protein 7.0 Albumin 3.2 L Globulin 3.8 Albumin/Globulin Ratio 0.8 L Vancomycin Trough 9.4 L PFSH Medical History Anticoagulated Atrial fibrillation Coronary artery disease Diabetes Dyslipidemia Hypertension Sleep apnea Surgical History Hx of cholecystectomy 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 Acute blood loss anemia likely secondary to over coagulation with what appears to be triple anti-platelet therapy, present on admission.? Causing hematoma left leg.? With skin compromise over the hematoma will have wound care evaluate.? Consult completed by wound care nurse.? Continue current treatment.? Patient to follow-up with business control specialist as an outpatient.? Appears to have no infection and is proceeding with healing. Patient's rivaroxaban, aspirin and clopidogrel are being held.? No evidence of further bleeding.? Hemoglobin stable.? Restart aspirin and rivaroxaban tomorrow. Patient received 2 units PRBC in the emergency department increasing his H&H from 6.7-7.9 and 20.8-24.5 respectively.? Today hemoglobin stable at 8.7.? This is stable.? Rivaroxaban and aspirin had been re-initiated but aspirin was stopped today due to the fact at rivaroxaban is the most important in this patient and aspirin may be a trigger for further bleeding. 2. Acute kidney injury likely secondary to blood loss anemia, present on admission Patient was fluid resuscitated in the emergency department 2 L He is currently saline lock due to volume overload Closely monitor renal function and hold nephrotoxic medications (Lisinopril).? GFR improved to 34 today.? Creatinine is 2.00. Renal function is stable and compromised. 3. Acute decompensated heart failure with reduced ejection fraction, present on admission In the ER, he received IV Lasix 80 mg in addition to his home oral dose of hydrochlorothiazide and torsemide.? Will increase daily furosemide to 40 mg daily.? Hydrochlorothiazide is not been ordered.? Torsemide has been added and is dated furosemide was discontinued and the torsemide dose increased to be equivalent of the dose of the torsemide plus furosemide. Therefore patient will be on new mg b.i.d. of torsemide. Torsemide was chosen due to the mortality benefits in this patient. Patient's proBNP was almost 7200.? Improved yesterday at 5570. Patient is currently recovering from biventricular heart catheterization Accounting Coordinator is Dr. Joyce in [place] has been notified of admission. Continue carvedilol 25 mg p.o. b.i.d., patient receives in 12.5 mg tablets 4. Probable left knee cellulitis, acute, present on admission Initially vancomycin that was largely prophylactic since no persistent signs of infection.? This has been discontinued. Orthopedic surgery has been consulted and seen the patient. Wound care consulted due to compromised skin at site of hematoma left leg.? Has not been evaluated yet.? Wound care nurse has seen the patient.? Recommends follow-up with business control specialist after discharge. 5. Coronary artery disease, chronic Continue home dose of atorvastatin 40 mg p.o. at bedtime 6. Diabetes type 2, appears to be well controlled ?A1c is 6.5 He will receive his home dose of Lantus 30 units b.i.d. Metformin remains on hold due to renal function. Low-dose correctional scale insulin and adjust as needed Carb controlled diet with a.c. HS glucose checks 7. Mobilization.? Beginning to mobilize with physical therapy.? Continue with treatment.? 8. Urinary tract infection with Sheridan glabrata.?With discussion with pharmacy change treatment to micafungin. This requires intravenous treatment. VTE Prophylaxis: Wells risk score 1.5.? Pharmacological VTE prophylaxis is contraindicated in the setting of active bleeding will do SCD? Patient is? inpatient service due to the severity of disease, risks of further disease progression. FEN: IV fluids: saline lock, diet: carb controlled diet Consultants: Dr. Guerrero Orthopedic Surgery,? care and involvement in the patient?s care is appreciated.? This has been completed.? Wound care nurse consult completed. Dispo: Unknown at this time.? Code status: Full code as discussed with the patient who identifies his son, Talon his surrogate and POA. Time Spent With Patient Critical Care time: I spent a total of [] minutes of critical care time on this patient's care today; this time is exclusive of procedural time. Quality VTE Deep Vein Thrombosis/Pulmonary Embolism Present on Admission: No
[2022-06-01] MEDS: MICAFUNGIN 100 MG in SODIUM CHLORIDE 0.9% 100 ML IV (13:57)
--- NOTE | 2022-06-01 13:58 | CM.DPC ---
DCP Cont: D[facility] today and they state that the earliest they could see the patient would be May 12. Per Evelia, unknown when wound clinic could see him. One option could be for home health wound orders for dressing changes until pt can get in to see the wound clinic. Continue to coordinate care with physicians and follow case. Ella Carrasquillo RN/LINAP
[2022-06-01 14:21] VITALS: BP 94/70; PULSE 65; RESP 16; TEMP 36.2; O2SAT 97
[2022-06-01] MEDS: TORSEMIDE 10 MG TABLET 30 MG PO (16:58)
[2022-06-01 20:34] VITALS: BP 112/52; PULSE 61; RESP 16; TEMP 36.2; O2SAT 97
[2022-06-01 20:44] VITALS: BP 112/52; PULSE 61
[2022-06-01] MEDS: INSULIN GLARGINE 100 UNIT/ML 3ML PEN 30 UNIT SUBCUT (20:49)
[2022-06-01] MEDS: ATORVASTATIN 20 MG TABLET 40 MG PO (20:49)
--- NOTE | 2022-06-01 22:11 | PC.NURSE ---
NOC Shift Note- Patient found at start of shift with bloody nose. cleaned patient and had patient pinch nose. Bleeding slowed but continued. Nose clamps placed. MD notified, d/c'ed Vinh. Patient alert and oriented to self and place. some confusion noted, patient reoriented easily. Safety measures in place. Bed alarm activated. Will continue to monitor.
[2022-06-02] VITALS (7 sets, daily range): BP systolic 105–138; BP diastolic 44–58; PULSE 60–70; RESP 16–17; TEMP 35.8–36.4; O2SAT 96–99
[2022-06-02] MEDS: PANTOPRAZOLE DR 20 MG TABLET PO ×2 (07:19→20:20)
[2022-06-02 09:24] LABS: Add Manual Diff / Slide Review NO; Basophils Absolute Auto 0 /uL (0-100); Basophils Percent Auto 0.6 % (0-2); Eosinophils Absolute Auto 100 /uL (0-450); Eosinophils Percent Auto 2.6 % (2-4); Hematocrit 28.6 % (41-53); Hemoglobin 9.2 g/dL (13.5-17.5); Lymphocytes Absolute Auto 600 /uL (1100-4500); Lymphocytes Percent Auto 11.9 % (25-40); Mean Corpuscular HGB Conc 32.2 % (30-36); Mean Corpuscular Hemoglobin 25.4 PG (26-34); Mean Corpuscular Volume 78.9 fL (80-100); Monocytes Absolute Auto 400 /uL (0-900); Monocytes Percent Auto 8.4 % (3-14); Neutrophils Absolute Auto 3900 /uL (1500-7000); Neutrophils Percent Auto 76.5 % (50-75); Platelet Count 178 X10^3/uL (150-400); Red Blood Cell Count 3.63 X10^6/uL (4.5-5.9); Red Cell Distribution Width 23.3 % (11.6-14.8); White Blood Cell Count 5.1 X10^3/uL (4.5-11.0)
[2022-06-02 09:36] LABS: BUN Creatinine Ratio 30.1 (6-22); Blood Urea Nitrogen 59 mg/dL (9-20); Calcium 8.5 mg/dL (8.4-10.2); Carbon Dioxide 25 mmol/L (22-32); Chloride 100 mmol/L (98-107); Estimated Glomerular Filt Rate 35 mL/min (>60); Glucose 115 mg/dL (80-110); HEMOLYSIS < 15 (0-50); Potassium 3.9 mmol/L (3.4-5.1); Sodium 134 mmol/L (137-145)
[2022-06-02 09:55] LABS: Anisocytosis 3+
[2022-06-02] MEDS: SODIUM CHLORIDE 0.9% FLUSH 10 ML IV ×2 (09:59→20:18)
[2022-06-02] MEDS: TORSEMIDE 10 MG TABLET 30 MG PO (09:59)
[2022-06-02] MEDS: DULOXETINE 30 MG CAPSULE 90 MG PO (10:00)
[2022-06-02] MEDS: carvediloL 12.5 MG TABLET 25 MG PO ×2 (10:00→20:16)
[2022-06-02] MEDS: CHOLECALCIFEROL (VITAMIN D3) 1,000 UNIT TABLET 1000 UNIT PO (10:00)
[2022-06-02] MEDS: INSULIN GLARGINE 100 UNIT/ML 3ML PEN 30 UNIT SUBCUT (10:01)
--- NOTE | 2022-06-02 10:58 | PC.NURSE ---
A&O x2. Conversant, follows directions makes needs easily known. Offers no overt c/o pain or other issues. One person assist to BR.
--- NOTE | 2022-06-02 11:19 | PT.IPTN ---
Current Diagnoses Acute posthemorrhagic anemia (05/28/22) FPC (current) use of anticoagulants (05/28/22) Physical Therapy Treatment Note M2 PT-IP Current Condition Start: 05/28/22 10:58 Freq: NEEDED Status: Active Protocol: Document 05/28/22 10:50 DLM (Rec: 05/28/22 11:27 DLM [id number]) Physical Therapy Current Condition Current Condition Evaluation Date 05/28/22 Treatment Diagnosis left LE hematoma, impaired mobility and gait Onset Date 05/28/22 M3 PT-IP Subjective Start: 05/28/22 10:58 Freq: NEEDED Status: Active Protocol: Document 06/02/22 11:06 KS (Rec: 06/02/22 12:50 KS [id number]) Subjective Physical Therapy Visit Type Type Treatment Note Visit Start Time 11:06 Visit Stop Time 11:19 Total Visit Minutes 13 Number of COPPER FLOTATION OPERATOR Visits 5 Physical Therapy Visit Comments Patient Comments Pt agreeable to ambulate. M4 PT-IP Mobility and Gait Start: 05/28/22 10:58 Freq: NEEDED Status: Active Protocol: Document 06/02/22 11:06 KS (Rec: 06/02/22 12:50 KS [id number]) PT-Bed Mobility Assessment Supine to Sit Supine to Sit Standby Assistance Sit to Supine Sit to Supine Standby Assistance Scooting Scooting to Edge of Bed Contact Guard Assistance PT-Transfer Assessment Sit to and From Stand Sit to and from Stand Contact Guard Assistance,1 Person Assistance,Use of Upper Extremities Equipment Transfer Assistive Device Gait Belt,Front Wheeled Walker Transfers Transfer Destination Bed Transfer Technique Sit<>stand Transfer Ability Level of Assist Contact Guard Assistance,1 Person Assistance,Use of Upper Extremities Comments Mobility Comments Pt in bed upon arrival and agreeable to ambuate. C/o pain in L knee. SBA for bed mobility, CGA for sit<>stand w / FWW. Pt only able to tolerate ~[address] before needing to sit due to knee pain. After seated rest break, he stood again and took lateral steps towards HOB w/ FWW CGA. Pt unable to tolerate futher ambulation d/t pain. RN aware. Pt performed ankle pumps, LAQs, and glute sets while seated EOB. CGA for sit<>sup. Pt left in bed w/ all needs in reach. Gait Assessment Comments Gait Comments Refer to mobility section for details. Stair Climbing Assessment Comments Stair Climbing Comments Did not assess. No stairs at home. PT-Balance Assessment Sitting Balance and Reactions Static Sitting Balance Ability Normal Dynamic Sitting Balance Ability Normal Standing Balance and Reactions Static Standing Balance Ability Fair Dynamic Standing Balance Ability Fair Device Used FWW M5 PT-IP Objective Assessments Start: 05/28/22 10:58 Freq: NEEDED Status: Active Protocol: Document 05/28/22 10:50 DLM (Rec: 05/28/22 11:27 DLM [id number]) Orientation Orientation/Cognition Level of Alertness Alert Orientation Name,Birthday,Place,Situation Language Function Ability No Deficits Noted Safety Awareness Understands Safety Issues Memory Description Short Term Impaired Comments often closes eyes but not sleeping Gross Range of Motion Upper Extremity ROM Assessment Within Functional Limits Lower Extremity ROM Assessment Left Impaired Impairments tolerated about 80 degrees knee flexion seated edge of bed with pain, all left knee movements painful as well as left DF/PF Strength Upper Extremity Strength Assessment Within Functional Limits Lower Extremity Strength Assessment Left Impaired Hip able to do straight leg raise off bed Knee too painful and bruised for testing, able to move actively Ankle moving actively but painful Comments Strength Comments left knee/calf area pain limits ROM and strength, significant bruising noted in knee area up into thigh, dressing over knee and calf areas Coordination Assessment Gross Coordination Gross Coordination WNL Sensation Assessment Sensation Gross Sensation Right LE Impaired,Left LE Impaired Sensation Description Numbness,Tingling Comments Sensation Comments hx numbness/tingling in feet Muscle Tone Muscle Tone WNL Yes M6 PT-IP Treatment Start: 05/28/22 10:58 Freq: NEEDED Status: Active Protocol: Document 06/02/22 11:06 KS (Rec: 06/02/22 12:50 IN [id number]) Physical Therapy Treatment Exercises Exercises Ankle Pumps,Gluteal Sets Education Education Provided Safety Other Treatments Other Treatment Performed LAQs M7 PT-IP Assessment and Plan Start: 05/28/22 10:58 Freq: NEEDED Status: Active Protocol: Document 06/02/22 11:06 KS (Rec: 06/02/22 12:50 KS [id number]) PT Summary Assessment and Plan Potential Rehabilitation Potential Good Summary Impairments Pain,ROM,Strength,Balance, Sensation,Cognition,Bed Mobility,Transfers,Gait, Activity Tolerance Progress Towards Goals Slow Progress due to Pain,Slow Progress due to Activity Tolerance Assessment Summary Pt continues to be limited in mobility d/t high reported pain in LLE/L knee. He only requires SBA to CGA for mobility but was not able to increase ambulation distance. Able to tolerate minimal E exercises to promote blood flow and strengthening, but pt reports pain w/ ther ex also. Will continue to assess progress. Goals Bed Mobility Goal Independent Transfer Goal Standby Assistance,Front Wheeled Walker Gait Goal Standby Assistance,Front Wheel Walker Gait Distance 50 feet Other Goals up and down one step with FWW and CG assist Days to Meet Goals 5 Frequency of Treatment Frequency Of Treatment Once a Day Treatment Plan Physical Therapy Treatment Plan Bed Mobility Training,Transfer Training,Gait Training, Therapeutic Exercise,Balance Retraining,Discharge Planning, Hot or Cold Pack,Neuromuscular Re-ed Other Recommendations and Next Treatment progress gait with caution to Focus manage bleeding in left knee area with known hematoma Precautions Other Precautions cardiac history, no weight bearing restrictions ordered at his time Recommendations To Nursing Amount of Assist Needed 1 Person Assist Discharge Recommendations PT Discharge Recommendations Home with 24/ Assist Available,Home Health,Home vs SNF Other Discharge Recommendations will need to clarify if family able to care for him at home, recommend home health if he goes home. Pt states DIL can provide assistance. Transportation Needs at Discharge Private Vehicle
--- NOTE | 2022-06-02 11:23 | DI.RAD.S_ITS ---
PROCEDURE: XR FOOT LT MIN 3V INDICATIONS: left heel pain after fall, check for fracture TECHNIQUE: 3 views of the foot were acquired. COMPARISON: [facility], CT, CT LE LT WO CON, 05/27/2022, 20:27. FINDINGS: Clothing artifact can be seen. Bones: No fractures or dislocations. No suspicious bony lesions. Soft tissues: No tibiotalar joint effusion. Achilles tendon appears normal. Distal soft tissue postoperative clips are seen. Atherosclerotic calcification is noted. IMPRESSION: No displaced fractures are seen on these plain films, including involving the calcaneus. Dictated by: Vijay Sage M.D. on 06/02/2022 at 10:51 Approved by: Vijay Sage M.D. on 06/02/2022 at 10:53
[2022-06-02] MEDS: TRAMADOL 50 MG TABLET PO ×2 (11:28→20:22)
--- NOTE | 2022-06-02 13:20 | CM.DPC ---
Addendum entered by Danika Sandoval R.N. 06/02/22 14:59: Met with patient. Patient alert and oriented. Confirmed with patient that son, Dion, will be able to assist patient when he goes home. It was mentioned by DC Cloth Shrinking Machine Operator that [facility] can see him Jun.12, no recent openings at wound clinic next door. Will need to get specific wound orders at discharge for resumption of [facility] Original Note: DCP Cont: Discussed patient during team rounds. There is a chance patient could go home tomorrow. Patient has been under [facility]. Will need to update [facility] upon discharge. P: DCP to continue to follow. Plan is home with resumption of [facility] when stable. Patient has been working with Tello Sandoval RN/Linux Developer
[2022-06-02] MEDS: MICAFUNGIN 100 MG in SODIUM CHLORIDE 0.9% 100 ML IV (14:03)
--- NOTE | 2022-06-02 16:39 | PM.PN.1 ---
Subjective Subjective Date Patient Seen: 06/02/22 Time Patient Seen: 11:00 Interval history: Patient states his left knee continues to have pain with movement. States he can walk to to the bathroom and back but that his left heel has alot of pain with weightbearing. Had a nosebleed overnight which finally stopped after 30min. His Xarelto was held by overnight doc. Exam Vital Signs (past 8 hours): - 06/01/22 14:21 06/01/22 20:34 06/01/22 20:44 Temperature 97.2 F L 97.1 F L Pulse Rate 65 61 61 Respiratory Rate 16 16 Blood Pressure 94/70 112/52 L 112/52 L Pulse Oximetry 97 97 Oxygen Flow Rate 0 0 Oxygen Delivery Method Room Air Oxygen Flow Rate 0 Narrative Exam Narrative: Oriented to time place and person.? Appears in no acute medical distress. HEENT:? Pupils equal reaction to light.? Extraocular movements normal.? Neck is supple.? Neck nodes are nontender nonpalpable.? Head is normocephalic.? Trachea is midline. Cardiovascular:? 1/6 systolic murmur.? S1-S2.? Peripheral pulses equal bilaterally.? No pedal edema. Respiratory:? Adequate air entry throughout the lung zamarripa, there are no wheezes or crackles. Gastrointestinal:? Bowel sounds normal.? Abdomen soft.? Nontender. Musculoskeletal:? Able to move all extremities volitionally.? Beginning to mobilize more with physical therapy.? No localized strength deficits. Skin:? Abrasions left foot.? Wound left knee with hematoma currently dressed.? Soft tissues abrasions right arm dressed. Neuro:? Normal sensation of all extremities.? Oriented x3. Psych:? Normal mood and affect. Objective Labs Result Diagrams: 06/02/22 09:08 06/02/22 09:08 Labs: Laboratory Results - last 24 hr 05/31/22 06/01/22 06/01/22 20:10 05:12 05:12 WBC 5.0 RBC 3.37 L Hgb 8.7 L Hct 26.4 L MCV 78.5 L MCH 25.8 L MCHC 32.8 RDW 23.7 H Plt Count 181 Neut % (Auto) 68.0 Lymph % (Auto) 17.9 L [place] % (Auto) 10.1 Eos % (Auto) 3.6 Baso % (Auto) 0.4 Neut # (Auto) 3400 Lymph # (Auto) 900 L [place] # (Auto) 500 Eos # (Auto) 200 Baso # (Auto) 0 RBC Morphology See below Anisocytosis 3+ H Sodium 132 L Potassium 3.7 Chloride 99 Carbon Dioxide 25 BUN 57 H Creatinine 2.00 H Estimated GFR 34 L BUN/Creatinine Ratio 28.5 H Glucose 90 Calcium 8.3 L Total Bilirubin 1.1 AST 36 ALT 21 Alkaline Phosphatase 99 Total Protein 7.0 Albumin 3.2 L Globulin 3.8 Albumin/Globulin Ratio 0.8 L Vancomycin Trough 9.4 L PFSH Medical History Anticoagulated Atrial fibrillation Coronary artery disease Diabetes Dyslipidemia Hypertension Sleep apnea Surgical History Hx of cholecystectomy 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 Acute blood loss anemia likely secondary to over coagulation with what appears to be triple anti-platelet therapy, present on admission.? Causing hematoma left leg.? With skin compromise over the hematoma will have wound care evaluate.? Consult completed by wound care nurse.? Continue current treatment.? Patient to follow-up with adaptive physical education specialist as an outpatient.? Appears to have no infection and is proceeding with healing. Patient's rivaroxaban, aspirin and clopidogrel are being held.? No evidence of further bleeding.? Hemoglobin stable.? Restart aspirin and rivaroxaban tomorrow. Patient received 2 units PRBC in the emergency department increasing his H&H from 6.7-7.9 and 20.8-24.5 respectively.? Hemoglobin now stable at 8-9's.? -Hold xarelto. Will have patient discuss resuming it at later time. 2. Acute kidney injury likely secondary to blood loss anemia, present on admission Patient was fluid resuscitated in the emergency department 2 L He is currently saline lock due to volume overload Closely monitor renal function and hold nephrotoxic medications (Lisinopril).? -Cr downtrending, continue to monitor 3. Acute decompensated heart failure with reduced ejection fraction, present on admission Echo at [facility] with EF 15%. In the ER, he received IV Lasix 80 mg in addition to his home oral dose of hydrochlorothiazide and torsemide.? Will increase daily furosemide to 40 mg daily.? Hydrochlorothiazide is not been ordered.? Torsemide has been added and is dated furosemide was discontinued and the torsemide dose increased to be equivalent of the dose of the torsemide plus furosemide. Therefore patient will be on new mg b.i.d. of torsemide. Torsemide was chosen due to the mortality benefits in this patient. Patient's proBNP was almost 7200.? Improved yesterday at 5570. Patient is currently recovering from biventricular heart catheterization. Plan was for ICD placement before he was admitted but will have to be at later date. Lbd Teacher is Dr. Joyce in [place] has been notified of admission. Continue carvedilol 25 mg p.o. b.i.d., patient receives in 12.5 mg tablets 4. Left medial knee hematoma with possible overlying cellulitis, acute, present on admission Initially vancomycin that was largely prophylactic since no persistent signs of infection.? This has been discontinued. Orthopedic surgery has been consulted and seen the patient. Wound care consulted due to compromised skin at site of hematoma left leg.? Has not been evaluated yet.? Wound care nurse has seen the patient.? Recommends follow-up with adaptive physical education specialist after discharge. 5. Coronary artery disease, chronic Continue home dose of atorvastatin 40 mg p.o. at bedtime 6. Diabetes type 2, appears to be well controlled A1c is 6.5 He will receive his home dose of Lantus 30 units b.i.d. Metformin remains on hold due to renal function. Low-dose correctional scale insulin and adjust as needed Carb controlled diet with a.c. HS glucose checks 7. Mobilization.? Beginning to mobilize with physical therapy.? Continue with treatment.? 8. Urinary tract infection with Sheridan glabrata.?Asymptomatic so will dc micofungin. 9. Left heel pain, present on admission -Patient noted left heel pain with standing -XR negative for calcaneal fracture -Tylenol PRN VTE Prophylaxis: Wells risk score 1.5.? Pharmacological VTE prophylaxis is contraindicated in the setting of active bleeding will do SCD? Patient is?inpatient service due to the severity of disease, risks of further disease progression. Diet: carb controlled diet Consultants: Dr. Guerrero Orthopedic Surgery,?care and involvement in the patient?s care is appreciated.? This has been completed.? Wound care nurse consult completed. Dispo: Home with PT on 06/03. Code status: Full code as discussed with the patient who identifies his son, Talon his surrogate and POA. Time Spent With Patient Critical Care time: I spent a total of [] minutes of critical care time on this patient's care today; this time is exclusive of procedural time. Quality VTE Deep Vein Thrombosis/Pulmonary Embolism Present on Admission: No
[2022-06-02] MEDS: ATORVASTATIN 20 MG TABLET 40 MG PO (20:16)
[2022-06-03] MEDS: TRAMADOL 50 MG TABLET PO ×2 (03:13→08:54)
[2022-06-03 05:00] VITALS: BP 126/50; PULSE 60; RESP 16; TEMP 36.4; O2SAT 98
[2022-06-03 05:20] LABS: Basophils Absolute Auto 0 /uL (0-100); Basophils Percent Auto 0.8 % (0-2); Eosinophils Absolute Auto 200 /uL (0-450); Eosinophils Percent Auto 3.4 % (2-4); Hematocrit 27.2 % (41-53); Hemoglobin 8.9 g/dL (13.5-17.5); Lymphocytes Absolute Auto 800 /uL (1100-4500); Lymphocytes Percent Auto 16.5 % (25-40); Mean Corpuscular HGB Conc 32.7 % (30-36); Mean Corpuscular Hemoglobin 25.6 PG (26-34); Mean Corpuscular Volume 78.1 fL (80-100); Monocytes Absolute Auto 500 /uL (0-900); Monocytes Percent Auto 9.6 % (3-14); Neutrophils Absolute Auto 3600 /uL (1500-7000); Neutrophils Percent Auto 69.7 % (50-75); Platelet Count 190 X10^3/uL (150-400); Red Blood Cell Count 3.48 X10^6/uL (4.5-5.9); Red Cell Distribution Width 23.1 % (11.6-14.8); White Blood Cell Count 5.1 X10^3/uL (4.5-11.0)
[2022-06-03 05:26] LABS: Add Manual Diff / Slide Review SLIDE REVIEW
[2022-06-03 05:32] LABS: BUN Creatinine Ratio 33.3 (6-22); Blood Urea Nitrogen 59 mg/dL (9-20); Calcium 8.3 mg/dL (8.4-10.2); Carbon Dioxide 25 mmol/L (22-32); Chloride 100 mmol/L (98-107); Estimated Glomerular Filt Rate 39 mL/min (>60); Glucose 122 mg/dL (80-110); HEMOLYSIS < 15 (0-50); Potassium 3.9 mmol/L (3.4-5.1); Sodium 134 mmol/L (137-145)
[2022-06-03] MEDS: ACETAMINOPHEN 325 MG TABLET 650 MG PO (05:51)
[2022-06-03] MEDS: PANTOPRAZOLE DR 20 MG TABLET PO (05:51)
[2022-06-03 06:48] LABS: Anisocytosis 3+
[2022-06-03 06:49] LABS: Hypochromasia 1+; Ovalocytes 1+
[2022-06-03 07:00] VITALS: BP 105/42; BP 79/43; BP 96/32
--- NOTE | 2022-06-03 08:25 | P.DS_ITS ---
History of Present Illness History of Present Illness Date Patient Seen: 06/03/22 Time Patient Seen: 13:00 Chief complaint: Dementia Narrative: Kenneth De Guzman is a 77-year-old male status post CABG approximately 20 years ago, coronary artery disease, recent biventricular PCTA, gini, cardioversion, diabetes type 2 and a remote history of B-cell lymphoma, was staying with his son and daughter in-law called EMS due to the patient declining per the ED triage note. Patient does not remember the details of what brought him here, thought he was readmitted to [facility].? He does not understand why he has here [place] but has no problems being here.? He stated that he does remember falling and he thinks he passed out.? He was allegedly nonresponsive likely to the son and paramedics which precipitated bringing him here.? Patient has a history of heart failure with reduced ejection fraction and has had a recent and complicated cardiac history.? He states that when he fell, he felt lightheaded and then does not remember anything out after that. He did endorse being short of breath but denied chest pain.? He states that his diabetes seems to be under pretty good control in thought his A1c was less than 8.? He denies nausea or vomiting, dysuria diarrhea or constipation he does state positive to having numbing of his hands and feet. Review of outside medical records.? On May 25 the patient presented to the emergency department after injuring his right knee seemingly occurred about May 21 or .? His anticoagulation had been stopped and he had at hematoma but no fracture.? They applied a posterior splint to immobilize his left leg and was to have removed it in 2-3 days.? He was discharged with 14 oxycodone.? When he presented to this emergency room the splint was found to have actually lodged into his medial calf with some skin peeling surrounding the hematoma.? He also had a number of dressings on his right arm.? He states that these were all due to his falls. Today, when he presented to the this emergency department he was found to be profoundly anemic with a hemoglobin and hematocrit of 6.7 and 20.8 respectively and was administered 2 units PRBC.? It was determined that patient is likely bled into the large hematoma.? He was very hypotensive when he came in, was concerning for sepsis and was given fluid resuscitation in addition to IV Zosyn and vancomycin.? He also presented with an acute kidney injury with a creatinine of 3.18 up from 1.63 in May.? They did a repeat of the CT which reported a large irregular medial soft tissue mass without extension into the underlying joint, presumably hematoma and likely the source of the acute blood loss.? After the blood pressure transfusion the patient was administered IV Lasix 80 mg in addition to his normal prescribed dose of 20 mg p.o. per the emergency provider, the patient's blood pressure improved and he became a lot more alert and oriented and was requested for admission to the medical floor. He is afebrile, blood pressure 108/46, heart rate 58, respiratory rate 12, oxygen saturation of 100% on room air he weighs 94 kg with a BMI of 33.4.? Currently his hemoglobin and hematocrit was improved to 7.9 in 24.5 respectively, platelet count is 206, sodium 132 chloride 97 BUN 61 creatinine 3.18 with an EGFR of 19 glucose 130 hemoglobin A1c is 6.5 total bilirubin 1.5 alk phos 170 proBNP 7170 procalcitonin is negative UA is positive for wbc's urine bacteria and apparently yeast and meets criteria for culture.? COVID-19 PCR is negative, blood type is A negative. Patient has a remote history of undergoing a CABG he states about 20 years ago.? He was admitted at [facility] from 04/30-05/04 with decompensated heart failure. He was subsequently seen in the heart failure clinic and admitted on on January 05 for an elective right left heart catheterization, undergoing a complex PCI of the distal RCA.? At that time he was very short of breath, dyspneic orthopneic and unable to lay flat.? He became tachycardic developing a narrow complex rhythm and was giving adenosine and at that time revealing underlying AFib.? He ended up staying longer to manage his atrial fibrillation in the hospital service at [facility]. Patient was discharged from [facility] for acute congestive heart failure on May 07 for acute on chron ic combined biventricular failure with left ventricular ejection fraction at 15% with volume overload and tachycardia.? He underwent PCI of the distal right coronary artery, had a transesophageal echocardiogram and cardioversion for atrial fibrillation.? He was discharged home to his son's home.? He appeared to be resumed on his home medications of aspirin, clopidogrel, metoprolol succinate 50 mg, spironolactone 25 mg, torsemide 20 mg, Jardiance, lisinopril 2.5 mg, Xarelto 15 mg, allopurinol, amiodarone 200 mg, atorvastatin 40 mg, duloxetine 30 mg, ferrous gluconate 324 mg, glargine insulin, metformin, omeprazole, Mirapex 0.125 mg nightly and as needed nitroglycerin. Discharge Providers Provider Date of admission: 05/28/22 00:50 Discharge Date: 06/03/22 Primary care physician: Doctor Shruthi MD Consults: 05/28/22 01:02 Consult to Physical Therapy Evaluate & Treat Comment: Home safety issue Physician Instructions: Evaluate and Treat 05/28/22 01:09 Consult to Physician Routine Comment: Consulting Provider: Nitin Guerrero Reason for consultation: large hematoma, concerning for soft tissue trauma/injury Has provider been notified: Yes 05/28/22 05:21 Consult to Inpatient Wound Care Nurse Routine Comment: Reason for consultation: pt has many skin issues Has provider been notified: No 05/28/22 10:13 Consult to Inpatient Wound Care Nurse Routine Comment: Reason for consultation: left leg subcutaneous hematoma wound Has provider been notified: No Discharge provider: Bridger Saha DO Summary Hospital Course Discharge Diagnosis: 1. Acute blood loss anemia likely secondary to over coagulation with what appears to be triple anti-platelet therapy, present on admission.? Causing hematoma left leg.? With skin compromise over the hematoma will have wound care evaluate.? Consult completed by wound care nurse.? Continue current treatment.? Patient to follow-up with auto adjudication specialist as an outpatient.? Appears to have no infection and is proceeding with healing. Patient's rivaroxaban, aspirin and clopidogrel are being held.? No evidence of further bleeding.? Hemoglobin stable.? Restart aspirin and rivaroxaban tomorrow. Patient received 2 units PRBC in the emergency department increasing his H&H from 6.7-7.9 and 20.8-24.5 respectively.? Hemoglobin now stable at 8-9's.? -Hold xarelto. Will have patient discuss with PCP resuming it at later time. 2. Acute kidney injury likely secondary to blood loss anemia, present on admission, improving Patient was fluid resuscitated in the emergency department 2 L He is currently saline lock due to volume overload Closely monitor renal function and hold nephrotoxic medications (Lisinopril).? -Cr downtrending to near baseline 3. Acute decompensated heart failure with reduced ejection fraction, present on admission Echo at [facility] with EF 15%. In the ER, he received IV Lasix 80 mg in addition to his home oral dose of hydrochlorothiazide and torsemide.? Will increase daily furosemide to 40 mg daily.? Hydrochlorothiazide is not been ordered.? Torsemide has been added and is dated furosemide was discontinued and the torsemide dose increased to be equivalent of the dose of the torsemide plus furosemide.? Therefore patient will be on new mg b.i.d. of torsemide.? Torsemide was chosen due to the mortality benefits in this patient. Patient's proBNP was almost 7200.? Improved yesterday at 5570. Patient is currently recovering from biventricular heart catheterization. Plan was for ICD placement before he was admitted but will have to be at later date. Shared Services Manager is Dr. Joyce in [place] has been notified of admission. Continue carvedilol 25 mg p.o. b.i.d., patient receives in 12.5 mg tablets Continue home torsemide Continue home lisinopril 2.5 4. Left medial knee hematoma with possible overlying cellulitis, acute, present on admission Initially vancomycin that was largely prophylactic since no persistent signs of infection.? This has been discontinued. Orthopedic surgery has been consulted and seen the patient. Wound care consulted due to compromised skin at site of hematoma left leg. Will need outpatient wound care with and possibly at wound clinic. 5. Coronary artery disease, chronic Continue home dose of atorvastatin 40 mg p.o. at bedtime Continue home aspiring 81mg daily. 6. Diabetes type 2, appears to be well controlled A1c is 6.5 He will receive his home dose of Lantus 30 units b.i.d. Metformin remains on hold due to renal function. Low-dose correctional scale insulin and adjust as needed Carb controlled diet with a.c. HS glucose checks 7. Mobilization.? Beginning to mobilize with physical therapy.? Continue with treatment.? 8. Urinary tract infection with Sheridan glabrata.?Asymptomatic so will dc micofungin. 9. Left heel pain, present on admission -Patient noted left heel pain with standing -XR negative for calcaneal fracture -Tylenol PRN 9. Orthostatic hypotension -multiple orthostatics showed 20 point in systolic drop -dc HCTZ on discharge but continued -patient to discuss with poured wall foreman about lowering his other BP meds to prevent orthostasis 10. Paroxysmal A-fib -patient on xarelto, but per ortho will hold this due to large left knee hemato ma -will have patient discuss with PCP about resuming at later time Hospital Course: Patient admitted for fall at home resulting in large left medial hematoma and blood loss anemia requiring 2 units of PRBCs. Ortho evaluated the left knee and did not think infection was contributing to the pain which persisted following hospitalization. Surgery was also not recommended by wound care alone. Recommended follow-up with Wound Care Clinic for ongoing management upon discharge. Patient's Xarelto was initially restarted during hospitalization then discontinued after he had a nosebleed which lasted 30 minutes. Patient's hemoglobin remained stable. He was also admitted with an KAROL with creatinine of 3.0. This improved almost to baseline of 1.7 upon discharge. Orthostatic hypotension so his hydrochlorothiazide was held as well as Coreg and torsemide. He is advised to resume his Coreg, lisinopril and torsemide upon discharge but hold hydrochlorothiazide until he follows up with his poured wall foreman. His aspirin was resumed on discharge but Xarelto was held until follow-up with his poured wall foreman. Exam Vital Signs (past 8 hours): - 06/03/22 05:00 Temperature 97.5 F L Pulse Rate 60 Respiratory Rate 16 Blood Pressure 126/50 L Pulse Oximetry 98 Oxygen Flow Rate 0 Oxygen Delivery Method Room Air Oxygen Flow Rate 0 Narrative Exam Narrative: Oriented to time place and person.? Appears in no acute medical distress. HEENT:? Pupils equal reaction to light.? Extraocular movements normal.? Neck is supple.? Neck nodes are nontender nonpalpable.? Head is normocephalic.? Trachea is midline. Cardiovascular:? 1/6 systolic murmur.? S1-S2.? Peripheral pulses equal bilaterally.? No pedal edema. Respiratory:? Adequate air entry throughout the lung zamarripa, there are no wheezes or crackles. Gastrointestinal:? Bowel sounds normal.? Abdomen soft.? Nontender. Musculoskeletal:? Able to move all extremities volitionally.? Beginning to mobilize more with physical therapy.? No localized strength deficits. Skin:? Abrasions left foot.? Wound left knee with hematoma currently dressed.? Soft tissues abrasions right arm dressed. Neuro:? Normal sensation of all extremities.? Oriented x3. Psych:? Normal mood and affect. Objective Labs Result Diagrams: 06/03/22 04:55 06/03/22 04:55 Labs: Laboratory Results - last 24 hr 06/02/22 06/02/22 06/03/22 09:08 09:08 04:55 WBC 5.1 5.1 RBC 3.63 L 3.48 L Hgb 9.2 L 8.9 L Hct 28.6 L 27.2 L MCV 78.9 L 78.1 L MCH 25.4 L 25.6 L MCHC 32.2 32.7 RDW 23.3 H 23.1 H Plt Count 178 190 Neut % (Auto) 76.5 H 69.7 Lymph % (Auto) 11.9 L 16.5 L [place] % (Auto) 8.4 9.6 Eos % (Auto) 2.6 3.4 Baso % (Auto) 0.6 0.8 Neut # (Auto) 3900 3600 Lymph # (Auto) 600 L 800 L [place] # (Auto) 400 500 Eos # (Auto) 100 200 Baso # (Auto) 0 0 RBC Morphology See below See below Hypochromasia 1+ H Anisocytosis 3+ H 3+ H Ovalocytes 1+ H Sodium 134 L Potassium 3.9 Chloride 100 Carbon Dioxide 25 BUN 59 H Creatinine 1.96 H Estimated GFR 35 L BUN/Creatinine Ratio 30.1 H Glucose 115 H Calcium 8.5 06/03/22 04:55 WBC RBC Hgb Hct MCV MCH MCHC RDW Plt Count Neut % (Auto) Lymph % (Auto) [place] % (Auto) Eos % (Auto) Baso % (Auto) Neut # (Auto) Lymph # (Auto) [place] # (Auto) Eos # (Auto) Baso # (Auto) RBC Morphology Hypochromasia Anisocytosis Ovalocytes Sodium 134 L Potassium 3.9 Chloride 100 Carbon Dioxide 25 BUN 59 H Creatinine 1.77 H Estimated GFR 39 L BUN/Creatinine Ratio 33.3 H Glucose 122 H Calcium 8.3 L REPLACED BY [facility] Medical History Anticoagulated Atrial fibrillation Coronary artery disease Diabetes Dyslipidemia Hypertension Sleep apnea Surgical History Hx of cholecystectomy 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 Provider Discharge Comment: Please make a follow-up with the wound care center at [facility] at [phone] to take a look at your knee. Also please see your poured wall foreman blanche. I've stopped your xarelto and HCTZ blood pressure med in the meantime and continued your aspirin for your heart. Please talk with your poured wall foreman about resuming your xarelto at your appointment with him. If your blood pressure continues to be low, you should also hold your torsemide and coreg to see if this improves your BP. Discharge orders & Medications Prescriptions: Continued lisinopril 20 MG tablet 2.5 mg PO QDAY Qty: 0 omeprazole 40 MG capsule,delayed release(DR/EC) 40 mg PO DAILY Qty: 0 aspirin 81 MG tablet,chewable 81 mg PO QDAY Qty: 0 VITAMIN D (Vitamin D3) tablet 2,000 units PO DAILY Qty: 0 insulin glargine [Lantus U-100 Insulin] 100 UNIT/1 ML solution 100 unit SQ DAILY Qty: 0 cyclobenzaprine 10 mg Tablet 10 mg PO TID atorvastatin 20 mg Tablet 40 mg PO DAILY carvedilol 12.5 mg Tablet 12.5 mg PO BID allopurinol 100 mg Tablet 100 mg PO BID carbidopa-levodopa 25-100 mg Tablet 1 tab PO BEDTIME oxycodone 10 mg tablet,oral only,ext.rel.12 hr 10 mg PO BID Ozempic 0.25 mg or 0.5 mg(2 mg/1.5 mL) Pen Injector 0.25 mg SUBCUT QWEEK torsemide 20 mg Tablet 20 mg PO BID metformin 500 mg Tablet 2,000 mg PO DAILY Changed oxycodone 5 mg Tablet 10 mg PO Q6H PRN (Reason: pain) Qty: 30 0RF Rx Instructions: 1-2 tabs by mouth q 6 hours as needed for pain. Discontinued hydrochlorothiazide 25 MG tablet 50 mg PO QDAY Qty: 0 Xarelto 20 mg tablet 15 mg PO DAILY Follow up/Referrals: Hema Joyce MD [Non-Staff] - Diet/Activity/Treatments Diet: Low-fat and Low-sodium Diet comment: restrict fluids per MD Activity: stand up from laying or sitting slowly while holding onto something steady or with help. Skin/Wound/Dressing Care Skin care: change dressing as needed, home health to assist, keep clean and dry Report to your healthcare provider any signs of infection, such as:: chills, fever, night sweats, increased pain, unusual drainage and unusual redness Visit Report/Discharge Packet Instructions: Orthostatic Hypotension, DI for Heart Failure, DI for Hematoma (Bruise), How to Prevent Falls, DI for Prescription Opioid Use, Skin Wound Discharge Data Primary Care Provider: Miscellaneous,Doctor Quality VTE Deep Vein Thrombosis/Pulmonary Embolism Present on Admission: No
[2022-06-03 08:38] VITALS: BP 110/48; PULSE 63
[2022-06-03] MEDS: DULOXETINE 30 MG CAPSULE 90 MG PO (08:38)
[2022-06-03] MEDS: carvediloL 12.5 MG TABLET 25 MG PO (08:38)
[2022-06-03] MEDS: INSULIN GLARGINE 100 UNIT/ML 3ML PEN 30 UNIT SUBCUT (08:46)
[2022-06-03 08:49] VITALS: BP 123/38; PULSE 57; RESP 16; TEMP 36.1; O2SAT 97
[2022-06-03] MEDS: HYDROCODONE/ACET 5/325 TABLET 1 TAB PO (11:41)
--- NOTE | 2022-06-03 12:08 | PT.IPTN ---
Current Diagnoses Acute posthemorrhagic anemia (05/28/22) senior living (current) use of anticoagulants (05/28/22) Physical Therapy Treatment Note M2 PT-IP Current Condition Start: 05/28/22 10:58 Freq: NEEDED Status: Active Protocol: Document 05/28/22 10:50 DLM (Rec: 05/28/22 11:27 DLM [id number]) Physical Therapy Current Condition Current Condition Evaluation Date 05/28/22 Treatment Diagnosis left LE hematoma, impaired mobility and gait Onset Date 05/28/22 M3 PT-IP Subjective Start: 05/28/22 10:58 Freq: NEEDED Status: Active Protocol: Document 06/03/22 12:08 AW (Rec: 06/03/22 12:46 AW [id number]) Subjective Physical Therapy Visit Type Type Treatment Note Visit Start Time 11:50 Visit Stop Time 12:08 Total Visit Minutes 18 Number of SMOCKING MACHINE OPERATOR Visits 0 Physical Therapy Visit Comments Patient Comments Pt agreeable to ambulate. M4 PT-IP Mobility and Gait Start: 05/28/22 10:58 Freq: NEEDED Status: Active Protocol: Document 06/03/22 12:08 AW (Rec: 06/03/22 12:46 AW [id number]) PT-Bed Mobility Assessment Supine to Sit Supine to Sit Standby Assistance Scooting Scooting to Edge of Bed Standby Assistance PT-Transfer Assessment Sit to and From Stand Sit to and from Stand Contact Guard Assistance,1 Person Assistance,Use of Upper Extremities Equipment Transfer Assistive Device Gait Belt,Front Wheeled Walker Transfers Transfer Destination Chair Transfer Technique amb with fww Transfer Ability Level of Assist Standby Assistance,Use of Upper Extremities Comments Mobility Comments Pt was reclined in bed as PT arrived. He sat up on the right side of the bed SBA and stood CGA with FWW. He ambulated around the bed, out the door, and down the moreira a total of 60 feet with complaint of increased knee pain. Pt completed stair assessment (see stair climbing assessment below) before returning to the room and transferring to the chair SBA. Pt was left in the chair with call light and all needs in reach. Gait Assessment Gait Gait Assistance Required: Standby Assistance,Contact Guard Assist,1 Person Assist Distance (Feet) 60 Able to Maintain Weight Bearing Status Yes During Gait Assistive Devices Assistive Device Gait Belt,Front Wheeled Walker Gait Deviations General Gait Pattern Antalgic,Decreased Stride Length,Decreased Feet Clearance,Flexed Trunk,Step-to Gait Factors Limiting Gait Function Factors Limiting Gait Function Decreased Activity Tolerance, Decreased Strength,Difficulty Following Directions, Incoordination,Limited Range of Motion,Pain,Poor Balance Comments Gait Comments SBA increased to CGA with fatigue. Stair Climbing Assessment Evaluation Level of Assist On Stairs Contact Guard Assistance Devices Stair Climbing Assistive Devices Front Wheel Walker Technique/Endurance Stair Climbing Direction Ascend and Descend Stair Climbing Technique Step to Step Number of Steps Climbed 1 Stair Climbing Set # Repetitions (reps) 2 Comments Stair Climbing Comments Pt was able to climb single platform step with FWW CGA. On first rep, pt attempted to lead descent with RLE. On second rep, pt corrected pattern and was more stable. PT-Balance Assessment Sitting Balance and Reactions Static Sitting Balance Ability Normal Dynamic Sitting Balance Ability Normal Standing Balance and Reactions Static Standing Balance Ability Fair Dynamic Standing Balance Ability Fair Device Used FWW M5 PT-IP Objective Assessments Start: 05/28/22 10:58 Freq: NEEDED Status: Active Protocol: Document 05/28/22 10:50 DLM (Rec: 05/28/22 11:27 DLM [id number]) Orientation Orientation/Cognition Level of Alertness Alert Orientation Name,Birthday,Place,Situation Language Function Ability No Deficits Noted Safety Awareness Understands Safety Issues Memory Description Short Term Impaired Comments often closes eyes but not sleeping Gross Range of Motion Upper Extremity ROM Assessment Within Functional Limits Lower Extremity ROM Assessment Left Impaired Impairments tolerated about 80 degrees knee flexion seated edge of bed with pain, all left knee movements painful as well as left DF/PF Strength Upper Extremity Strength Assessment Within Functional Limits Lower Extremity Strength Assessment Left Impaired Hip able to do straight leg raise off bed Knee too painful and bruised for testing, able to move actively Ankle moving actively but painful Comments Strength Comments left knee/calf area pain limits ROM and strength, significant bruising noted in knee area up into thigh, dressing over knee and calf areas Coordination Assessment Gross Coordination Gross Coordination WNL Sensation Assessment Sensation Gross Sensation Right LE Impaired,Left LE Impaired Sensation Description Numbness,Tingling Comments Sensation Comments hx numbness/tingling in feet Muscle Tone Muscle Tone WNL Yes M6 PT-IP Treatment Start: 05/28/22 10:58 Freq: NEEDED Status: Active Protocol: Document 06/03/22 12:08 AW (Rec: 06/03/22 12:46 AW [id number]) Physical Therapy Treatment Education Education Provided Safety Other Treatments Other Treatment Performed Education on stair management as above. M7 PT-IP Assessment and Plan Start: 05/28/22 10:58 Freq: NEEDED Status: Active Protocol: Document 06/03/22 12:08 AW (Rec: 06/03/22 12:46 AW [id number]) PT Summary Assessment and Plan Potential Rehabilitation Potential Good Summary Impairments Pain,ROM,Strength,Balance, Sensation,Cognition,Bed Mobility,Transfers,Gait, Activity Tolerance Progress Towards Goals Progressing Toward Goals,Slow Progress due to Pain,Slow Progress due to Activity Tolerance Assessment Summary Pt increased ambulation distance today and completed stair training for safe entry to the home wtih SBA to CGA for all using FWW. Pt will have family at home to assist and will be safe to discharge home once medically stable. Goals Bed Mobility Goal Independent Transfer Goal Standby Assistance,Front Wheeled Walker Gait Goal Standby Assistance,Front Wheel Walker Gait Distance 50 feet Other Goals up and down one step with FWW and CG assist Days to Meet Goals 5 Frequency of Treatment Frequency Of Treatment Once a Day Treatment Plan Physical Therapy Treatment Plan Bed Mobility Training,Transfer Training,Gait Training, Therapeutic Exercise,Balance Retraining,Discharge Planning, Hot or Cold Pack,Neuromuscular Re-ed Other Recommendations and Next Treatment progress gait with caution to Focus manage bleeding in left knee area with known hematoma Precautions Other Precautions cardiac history, no weight bearing restrictions ordered at his time Recommendations To Nursing Amount of Assist Needed Standby Assistance Discharge Recommendations PT Discharge Recommendations Home with 29/04 Assist Available,Home Health Transportation Needs at Discharge Private Vehicle
--- NOTE | 2022-06-03 14:18 | CM.DPC ---
DCP Cont: Patient should be discharging home today. Called Alyssia at [facility] and updated her. Did add P.T, and O.T, along with nursing, which she is getting. Let Alyssia know that there is a tentative appointment at [facility] on 06/12, but was not verified, and this is the week-end. Faxed her over the resumption orders and DC Summary. Nurse, Rekha, indicated that patient is to be picked up at approximately 1700 by son. Asked about supplies, and teaching for patient to have some supplies. P: Patient should be discharging home today with the resumption of [facility] for nursing, and added P.T, and O.T. Danika Sandoval RN/Jesús Sandoval
[2022-06-03 16:00] VITALS: BP 113/40; PULSE 61; RESP 16; TEMP 36.4; O2SAT 98
--- NOTE | 2022-06-03 17:28 | PC.NURSE ---
took over care of patient at 2166
== END 2022-06-03 17:50 | disposition home health service (06) | DRG 811 ==
LOC: ED 05-28 00:29 → AC 05-28 00:50
PROVIDERS: Neuromusculoskeletal Medicine, Sports Medicine; Student in an Organized Health Care Education/Training Program; Admitting Provider Nurse Practitioner Family; Emergency Provider Emergency Medicine; Referring Provider Emergency Medicine; Visit Provider Nurse Practitioner Family
DX: D62 Acute posthemorrhagic anemia (principal); I50.23 Acute on chronic systolic (congestive) heart failure; N17.9 Acute kidney failure, unspecified; D68.32 Hemorrhagic disorder due to extrinsic circulating anticoagulants; B37.49 Other urogenital candidiasis; T45.525A Adverse effect of antithrombotic drugs, initial encounter; M79.672 Pain in left foot; I25.10 Atherosclerotic heart disease of native coronary artery without angina pectoris; E11.9 Type 2 diabetes mellitus without complications; I95.1 Orthostatic hypotension; I48.0 Paroxysmal atrial fibrillation; I11.0 Hypertensive heart disease with heart failure; E78.5 Hyperlipidemia, unspecified; Z79.84 Long term (current) use of oral hypoglycemic drugs; Z79.4 Long term (current) use of insulin; Z20.822 Contact with and (suspected) exposure to COVID-19; Z87.891 Personal history of nicotine dependence; Z95.1 Presence of aortocoronary bypass graft; Z79.01 Long term (current) use of anticoagulants
CPT/HCPCS: 36415; 36430; 36592; 70450; 71045; 73630; 73700; 80048; 80053; 80202; 81003; 81015; 82962; 83036; 83605; 83690; 83735; 83880; 84145; 84484; 85014; 85018; 85025; 85610; 86140; 86850; 86900; 86901; 87040; 87077; 87086; 87635; 93005; 96365; 96367; 96375; 97110; 97116; 97162; 97530; 99285; 99291; C9803; P9016; J1450; J1815; J1940; J2248; J2543